=== PATIENT | male | born 1955 | race Caucasian/White ===

== ENCOUNTER → 2018-09-01 10:45 | Outpatient (CLI) | payer MEDICARE, OTHER, SELFPAY ==
[2018-09-01 12:25] LABS: INR 2.1 (0.9-1.3); Prothrombin Time 22.9 SECONDS (10.1-12.7)
[2018-09-01 13:13] LABS: Hemoglobin A1C% w Est Avg Glu 5.8 % (4.0-6.0)
[2018-09-01 14:00] LABS: Alanine Aminotransferase 40 IU/L (21-72); Albumin 4.6 g/dL (3.5-5.0); Albumin Globulin Ratio 1.7 (1.0-2.8); Alkaline Phosphatase 50 U/L (38-126); Aspartate Aminotransferase 32 IU/L (17-59); BUN Creatinine Ratio 22.2 (6-22); Bilirubin Total 1.8 mg/dL (0.2-1.3); Blood Urea Nitrogen 20 mg/dL (9-20); Calcium 9.7 mg/dL (8.4-10.2); Carbon Dioxide 32 mmol/L (22-32); Chloride 99 mmol/L (98-107); Cholesterol 126 mg/dL (140-199); Estimated Glomerular Filt Rate > 60.0 mL/min (>60); Globulin 2.7 g/dL (1.7-4.1); Glucose 108 mg/dL (80-110); HDL Cholesterol 42 mg/dL (40-60); HEMOLYSIS < 15 (0-50); LDL Cholesterol Calculated 58 mg/dL (<100); Potassium 3.5 mmol/L (3.4-5.1); Sodium 145 mmol/L (137-145); Total Protein 7.3 g/dL (6.3-8.2); Triglycerides 129 mg/dL (35-150)
[2018-09-01 15:34] LABS: Vitamin D 25 Hydroxy (D3) 33.1 ng/mL (30.0-100.0)
== END ==
PROVIDERS: PCP Student in an Organized Health Care Education/Training Program; Visit Provider Student in an Organized Health Care Education/Training Program
DX: R73.03 Prediabetes (principal); E78.2 Mixed hyperlipidemia; E55.9 Vitamin D deficiency, unspecified; Z79.01 Long term (current) use of anticoagulants; I10 Essential (primary) hypertension; Z79.899 Other long term (current) drug therapy
CPT/HCPCS: 36415; 80053; 80061; 82306; 83036; 85610

== ENCOUNTER → 2018-11-08 13:26 | Outpatient (CLI) | payer MEDICARE, OTHER, SELFPAY ==
[2018-11-08 13:35] LABS: Bacteria Urine None Seen; RBC Urine None Seen (0-5/HPF); WBC Urine None Seen (0-5/HPF)
[2018-11-08 14:07] LABS: INR 2.1 (0.9-1.3); Prothrombin Time 24.4 SECONDS (10.1-12.7)
[2018-11-08 14:20] LABS: Appearance Urine UA CLEAR; Bilirubin Urine UA NEGATIVE (NEGATIVE); Color Urine UA YELLOW; Glucose Urine UA NEGATIVE (Negative); Ketones Urine UA NEGATIVE (NEGATIVE); Leukocyte Esterase Urine UA NEGATIVE (NEGATIVE); Nitrite Urine UA NEGATIVE (Negative); Occult Blood Urine UA TRACE-LYSED (Negative); Protein Urine UA NEGATIVE (Negative); Specific Gravity Urine UA >=1.030 (1.000-1.035); Urobilinogen Urine UA 0.2 E.U./dL (0.2); pH Urine UA 5.5 (4.5-8.0)
[2018-11-08 14:36] LABS: Alanine Aminotransferase 47 IU/L (21-72); Albumin 4.6 g/dL (3.5-5.0); Albumin Globulin Ratio 1.6 (1.0-2.8); Alkaline Phosphatase 47 U/L (38-126); Aspartate Aminotransferase 33 IU/L (17-59); BUN Creatinine Ratio 21.1 (6-22); Bilirubin Direct 0.2 mg/dL (0.0-0.4); Bilirubin Total 2.5 mg/dL (0.2-1.3); Blood Urea Nitrogen 19 mg/dL (9-20); Calcium 9.9 mg/dL (8.4-10.2); Carbon Dioxide 31 mmol/L (22-32); Chloride 97 mmol/L (98-107); Estimated Glomerular Filt Rate > 60.0 mL/min (>60); Globulin 2.9 g/dL (1.7-4.1); Glucose 85 mg/dL (80-110); HEMOLYSIS < 15 (0-50); Potassium 3.5 mmol/L (3.4-5.1); Sodium 141 mmol/L (137-145); Total Protein 7.5 g/dL (6.3-8.2)
[2018-11-08 14:53] LABS: Amorphous Sediment Urine 2+; Hyaline Casts Urine 1-5/LPF
[2018-11-08 14:54] LABS: Culture Indicated Urine Cult Not Indicated
[2018-11-08 15:02] LABS: Add Manual Diff / Slide Review NO; Basophils Absolute Auto 0 /uL (0-100); Basophils Percent Auto 0.5 % (0-2); Eosinophils Absolute Auto 100 /uL (0-450); Eosinophils Percent Auto 1.1 % (2-4); Hematocrit 50.6 % (41-53); Hemoglobin 17.2 g/dL (13.5-17.5); Lymphocytes Absolute Auto 4300 /uL (1100-4500); Lymphocytes Percent Auto 46.5 % (25-40); Mean Corpuscular HGB Conc 33.9 % (30-36); Mean Corpuscular Volume 100.3 fL (80-100); Monocytes Absolute Auto 1200 /uL (0-900); Monocytes Percent Auto 12.9 % (3-14); Neutrophils Absolute Auto 3600 /uL (1500-7000); Platelet Count 196 X10^3/uL (150-400); Red Blood Cell Count 5.04 X10^6/uL (4.5-5.9); Red Cell Distribution Width 13.2 % (11.6-14.8); White Blood Cell Count 9.2 X10^3/uL (4.5-11.0)
[2018-11-09 06:27] LABS: Gamma Glutamyl Transpeptidase 25 U/L (15-73)
== END ==
PROVIDERS: PCP Student in an Organized Health Care Education/Training Program; Visit Provider Student in an Organized Health Care Education/Training Program
DX: Z01.810 Encounter for preprocedural cardiovascular examination (principal); E80.4 Gilbert syndrome; E80.6 Other disorders of bilirubin metabolism
CPT/HCPCS: 36415; 80053; 81001; 82248; 82977; 85025; 85610

== ENCOUNTER → 2018-12-10 13:53 | Outpatient (CLI) | payer MEDICARE, OTHER, SELFPAY ==
[2018-12-10 14:58] LABS: INR 2.5 (0.9-1.3); Prothrombin Time 28.7 SECONDS (10.1-12.7)
== END ==
PROVIDERS: PCP Student in an Organized Health Care Education/Training Program; Visit Provider Student in an Organized Health Care Education/Training Program
DX: Z79.01 Long term (current) use of anticoagulants (principal)
CPT/HCPCS: 36415; 85610

== ENCOUNTER 2019-01-06 06:12 | Inpatient (IN) | payer MEDICARE, OTHER, SELFPAY ==
[2018-12-23 08:49] VITALS: BMI 26.9
[2019-01-06] VITALS (15 sets, daily range): BP systolic 94–124; BP diastolic 52–79; PULSE 65–90; RESP 10–18; TEMP 36–36.8; O2SAT 94–100; BMI 26.7
--- NOTE | 2019-01-06 | DI.RAD.S_ITS ---
PROCEDURE: XR HIP W PEL IF DONE RT 2V INDICATIONS: post operative right hio TECHNIQUE: 2 view(s) of the hip acquired. COMPARISON: [facility], [place], XR HIP W PEL IF DONE RT 2V, 01/06/2019, 8:36. FINDINGS: Bones: Patient is status post right hip arthroplasty, with hardware components in expected positions. The hip joint appears congruent. The visualized bony structures appear intact. Moderate left hip degenerative change. Soft tissues: Overlying postoperative changes are noted. No suspicious soft tissue densities. IMPRESSION: Expected postoperative appearance of right hip arthroplasty. Dictated by: Mary Kate Keith M.D. on 01/06/2019 at 12:28 Approved by: Mary Kate Keith M.D. on 01/06/2019 at 12:30
--- NOTE | 2019-01-06 06:00 | DI.RAD.S_ITS ---
PROCEDURE: XR HIP W PEL IF DONE RT 2V INDICATIONS: intraoperative right total hip TECHNIQUE: AP pelvis with lateral view(s) of the right hip(s). COMPARISON: [facility], [place], XR PELVIS WITH LATERAL HIP RIGHT, 04/28/2018, 15:51. FINDINGS: Right hip arthroplasty with prosthesis in anatomic alignment. IMPRESSION: Right hip prosthesis in anatomic alignment. Dictated by: Mandi Barlow M.D. on 01/06/2019 at 15:42 Approved by: Mandi Barlow M.D. on 01/06/2019 at 15:43
[2019-01-06] MEDS: LACTATED RINGERS 1,000 ML 42 ML IV ×2 (07:00→11:21)
[2019-01-06] MEDS: VANCOMYCIN 1,000 MG/200 ML FROZ.PIGGY 200 MG IV (07:04)
[2019-01-06] MEDS: PREGABALIN 75 MG CAPSULE PO (07:05)
[2019-01-06] MEDS: ACETAMINOPHEN 325 MG TABLET 975 MG PO ×3 (07:05→20:22)
[2019-01-06] MEDS: CELECOXIB 200 MG CAPSULE PO (07:05)
--- NOTE | 2019-01-06 07:48 | SUR.PREOP ---
SPOKE WITH DR. ESQUEDA REGARDING ORDER FOR LAB TO BE DRAWN. PER DR. ESQUEDA, NO NEED TO DRAW NEW LABS TODAY. SPOKE WITH DR. JIN REGARDING PT ALLERGY TO AMOXICILLIN IN REGARDS TO CURRENT ANTIBIOTIC ORDER FOR ANCEF. PER DR. JIN OK TO CONTINUE WITH CURRENT PLAN FOR ANCEF. 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
--- NOTE | 2019-01-06 07:49 | PM.PREOP ---
Pre-operative Note Interval Note History & Physical reviewed/Exam performed by Physician: Yes Changes to H&P: No
[2019-01-06] MEDS: CEFAZOLIN 2 GM/100 ML FROZ.PIGGY IV ×3 (08:00→23:50)
[2019-01-06] MEDS: BUPIVACAINE LIPOSOME 266 MG/20 ML VIAL INJ (08:56)
[2019-01-06] MEDS: BUPIVACAINE 0.25% W/ EPI 50 ML VIAL INJ (08:58)
[2019-01-06] MEDS: POVIDONE-IODINE 15 ML, SODIUM CHLORIDE 0.9% 250 ML TOP (08:59)
--- NOTE | 2019-01-06 12:00 | SUR.PHASEI ---
REPORT CALLED TO REYMUNDO ULRICH ON ACUTE CARE FLOOR. PT IN STABLE CONDITION, VSS. IV SITE CLEAR AND INFUSING WITHOUT DIFFICULTLY. DRSG TO SURGICAL SITE OBSERVED TO BE C/D/I. DULL SENSTATION AND WEAK STRENGTH RELATED TO SPINAL. +PULSE, AND WARM TO TOUCH. PT DENIES ANY PAIN/DISCOMFORT OR NAUSEA. PT LAYING IN BED AND TALKING TO RN.
--- NOTE | 2019-01-06 12:08 | PC.NURSE ---
Day shift: Pty not on AC unit at this time. [id number]
--- NOTE | 2019-01-06 12:14 | PC.NURSE ---
Day shift: Arrived on unit at approx 1215. Aquacel Dressing is CDI. Oriented to call light and room. CAll light in reach. Agrees to not get OOB w/o help from staff. VS ok. RA 95%. Denies pain.
--- NOTE | 2019-01-06 12:20 | SUR.PHASEI ---
TRANSFERRED PT TO ACUTE CARE FLOOR. VSS. PT IN ROOM UPON ARRIVAL. BEDSIDE REPORT GIVEN TO REYMUNDO ULRICH UPON ARRIVAL. TRANSFERRED CARE OF PT TO REYMUNDO ULRICH AT THAT TIME.
[2019-01-06] MEDS: LACTATED RINGERS 1,000 ML 125 ML IV ×2 (12:55→20:27)
[2019-01-06] MEDS: WARFARIN 2.5 MG TABLET PO (16:44)
[2019-01-06] MEDS: ATENOLOL 50 MG TABLET 100 MG PO (16:45)
--- NOTE | 2019-01-06 17:55 | P.OP_ITS ---
Operative Date/Time/Diagnoses Date of procedure: 01/06/19 Time of procedure: 08:01 Pre-op diagnosis: Right hip osteoarthritis Post-op diagnosis: same Procedure & Clinicians Procedure: Right total hip arthroplasty Same procedure as scheduled: Yes Indications: The patient has had progressively worsening right hip pain with radiographic changes consistent with arthritis. Non-operative management has failed and the patient has requested total hip replacement. The risks, benefits and alternatives to surgery were discussed with the patient prior to proceeding. Risks discussed included, but were not limited to, failure to relieve pain, leg length discrepancy, dislocation, stiffness, infection, nerve damage, deep venous thrombosis, pulmonary embolism, stroke, coma, heart attack, permanent paralysis and , as well as the potential need for eventual revision of the prosthetic. Surgeon: Julieta Saunders Architecture Intern: Tho Akins Anesthesia Type: General and Spinal Operative Notes Findings: Severe right hip osteoarthritis, good stability Closure Type: primary Specimen(s): none sent Prosthetic devices, grafts, tissues, transplants, or devices: Saunders [employer]hew R3 54 cup, size 8 standard offset anthology, +0 head Oxinium Estimated Blood Loss (mL): 250 Blood products transfused: none Procedure in detail: The patient was brought to the operating room. Patient was carefully positioned in the supine position. Time-out was performed and antibiotics were given. Anesthesia was induced. he was positioned in the on the hana table in order to allow hyperextension of the hip. the right lower extremities were prepped and draped in a standard sterile fashion. An anterior right hip incision was made 1 fingerbreadth lateral to the anterior superior iliac spine and extended distally towards the greater trochanter. Dissection was carried out through skin and subcutaneous tissues. The skin and subcutaneous tissues were carefully injected with Lidocaine with epi. Superficial hemostasis was achieved. The fascia over the tensor fascia yury was defined and incised with a knife. Two Allis clamps were used to grasp the fascia. Tensor fascia yury was retracted laterally. A gelpi retractor was placed. Dissection was carried out down along the neck. The circumflex vessels were carefully identified and cauterized with the Aqua Mantis. There was good visualization of the femoral neck. A Cobra was placed superior to the neck and the gluteus fibers were carefully stripped from the superior aspect of the capsule. A 2nd retractor was placed along the inferior aspect of the neck. The rectus insertion along the capsule was partially released. A 3rd retractor that was then gently placed over the rim of the acetabulum under the rectus and the rectus was very gently retracted. Capsule was carefully incised and released from the intertrochanteric line circumferentially superior to the mid sagittal line and inferiorly to the mid sagittal line until the lesser trochanter was palpable. A tag stitch was placed both in the superior and inferior limb of the capsular insertion. Along the acetabulum capsule was also released up to the mid sagittal 12:00 position. A portion of the labrum was r esected. A saw was used to perform an osteotomy at the level of the intertrochanteric line and the junction of the superior femoral neck leaving approximately 1 finger breath of residual inferior neck above the lesser trochanter. A 2nd cut was made along the femoral neck at the base of the head and a napkin ring of neck was removed. Corkscrew was placed in the femoral head and the head was removed without difficulty. Retractors were then repositioned around the acetabulum. Residual labrum was resected and additional osteophytes were removed. A reamer that was 4 mm below the templated size was placed by hand in the acetabulum and it was reamed to centralize the acetabulum. It was then reamed up to 2 under the templated size and fluoroscopy was brought in to confirm the position of the reaming and depth of reaming. I reamed 1 under the anticipated size and touched the rim with line to line reaming. A trial cup was placed and noted that it was appropriately sized and fluoroscopy confirmed position and depth. The component was open and inserted without difficulty fluoroscopic imaging was used to confirm that the cup had been adequately seated and was well positioned. Neutral poly liner was placed. The cup was tested and noted to be stable. Attention was then directed to the femur. The femur was gently hyperextended additional capsular release was performed as needed in order to allow adequate visualization of the proximal femur with elevation of the femur. Patient was placed in a hyperextended slightly adducted position with maximum external rotation. a proximal femoral hook was passed posteriorly around the trochanter and very gently elevated. Box osteotome was used to check for any residual neck as well as sclerotic bone along the trochanter. Townsend pepper was placed in the femur. there was excellent visualization of the proximal femur. Additional broaching was performed. Canal finder was used to determine the alignment of the canal and position. Size 1 broach was placed. The canal was then appropriately broached up to the templated size as long as there was adequate stability of the broach and serial advancement of the broach without excessive impingement. Specific attention was directed at avoiding varus attempting to direct the distal aspect of the broach more anteriorly and avoiding excessive anteversion. Trial reduction showed acceptable range of motion, good stability, no posterior impingement, pentecostalism of leg length and appropriate lateral shuck. I also flexed the hip and checked that there was no impingement anteriorly and there was good stability with flexion, abduction and internal rotation. Marcaine and Exparel were injected. The stem was placed without difficulty. A brief Betadine soak was performed. Repeat trial reduction and x-ray showed acceptable overall position, length, and no evidence of the femoral fracture. Final head was placed. Wound was meticulously irrigated with normal saline. The hip was reduced and additional Exparel and Marcaine were injected. The capsule was closed with interrupted nonabsorbable sutures. The fascia of the tensor was closed with interrupted and running Vicryl. No drain was placed. Any tensor fascia yury muscle that appeared to be contused or injured which was a minimal amount was carefully resected. Capsule around the tensor was injected with Exparel and Marcaine. The skin was closed with barbed stitches for the subcutaneous tissue and skin. We also used surgical glue. The wound was dressed sterilely. Brief Betadine soak was also used and was meticulously irrigated wit h normal saline. Patient was transferred to recovery room in satisfactory condition. Complications: none Condition: stable Disposition: Acute Care Plan for aftercare: The patient will be maintained on a standard total hip replacement protocol with weight bearing as tolerated and anterior hip precautions. The patient will receive his preoperative Coumadin and sequential compression devices for DVT prophylaxis. The patient will be discharged home when safe for the home environment.
[2019-01-06] MEDS: DOCUSATE 100 MG CAPSULE PO (20:22)
[2019-01-06] MEDS: ASPIRIN EC 81 MG TABLET PO (20:22)
[2019-01-06] MEDS: SIMVASTATIN 20 MG TABLET PO (20:22)
[2019-01-06] MEDS: OXYCODONE IR 5 MG TABLET PO ×2 (20:23→23:50)
[2019-01-07 04:00] VITALS: BP 111/65; PULSE 82; RESP 18; TEMP 36.8; O2SAT 97
[2019-01-07] MEDS: OXYCODONE IR 5 MG TABLET PO ×4 (04:00→16:41)
[2019-01-07] MEDS: LACTATED RINGERS 1,000 ML 125 ML IV (05:29)
[2019-01-07 06:51] LABS: Hematocrit 39.5 % (41-53); Hemoglobin 13.6 g/dL (13.5-17.5)
[2019-01-07 07:40] VITALS: BP 138/60; PULSE 75; RESP 16; TEMP 37.1; O2SAT 97
[2019-01-07] MEDS: POLYETHYLENE GLYCOL 3350 17 GM POWD.PACK PO (08:27)
[2019-01-07] MEDS: ACETAMINOPHEN 325 MG TABLET 975 MG PO ×3 (08:28→21:42)
[2019-01-07] MEDS: DOCUSATE 100 MG CAPSULE PO ×2 (08:29→19:57)
[2019-01-07] MEDS: MULTIVITAMIN 1 TABLET 1 TAB PO (08:29)
[2019-01-07] MEDS: hydroCHLOROthiazide 25 MG TABLET 50 MG PO (08:29)
[2019-01-07] MEDS: ASPIRIN EC 81 MG TABLET PO ×2 (08:29→19:57)
[2019-01-07] MEDS: FISH OIL 1,000 MG CAPSULE 1000 MG PO (08:29)
--- NOTE | 2019-01-07 09:05 | PM.DS.1 ---
History of Present Illness Chief complaint: Right Total Hip Arthroplasty/Anterior Approach Discharge Providers Date of admission: 01/06/19 06:12 Primary care physician: Chandra Schilling MD Consults: 01/06/19 06:00 Consult to Anesthesiology Routine Comment: Consulting Provider: Anesthesiologist Reason for consultation: Regional block for post operative pain control 01/06/19 12:30 Consult to Discharge Planning Routine Comment: Consult to Physical Therapy Evaluate & Treat Comment: Physician Instructions: post op ZEINA protocol Consult to Respiratory Therapy Evaluate & Treat Comment: Physician Instructions: Evaluate and treat Discharge provider: Carri Hu PA-C Exam Vital Signs (past 8 hours): - 01/07/19 04:00 01/07/19 07:40 Temperature 98.2 F 98.7 F Pulse Rate 82 75 Respiratory Rate 18 16 Blood Pressure 111/65 138/60 Pulse Oximetry 97 97 Oxygen Delivery Method Room Air Oxygen Flow Rate 0 Objective Labs Result Diagrams: 01/07/19 06:29 Labs: Laboratory Results - last 24 hr 01/07/19 06:29 Hgb 13.6 Hct 39.5 L Discharge Plan Discharge Plan Patient Disposition: Home Discharge Med Rec/Prescriptions Prescriptions: New oxycodone 5 mg Tablet 5 mg PO Q4-6H PRN (Reason: pain) Qty: 40 RF: 0 hydroxyzine HCl 25 mg tablet 25 mg PO QID PRN (Reason: muscle spasm) Qty: 60 RF: 0 Continued multivitamin Capsule 1 cap PO DAILY Qty: 0 RF: 0 simvastatin 20 MG tablet 20 mg PO HS Qty: 0 RF: 0 hydrochlorothiazide 25 MG tablet 50 mg PO QDAY Qty: 0 RF: 0 omega 9-jrf-wdz-fish oil [Fish Oil] 1,000 mg (120 mg-180 mg) Capsule 1 cap PO DAILY Qty: 0 RF: 0 warfarin [Coumadin] 5 mg tablet 5 mg PO QMWF RF: 0 atenolol 100 mg Tablet 100 mg PO QPM RF: 0 warfarin 2.5 mg PO [id number] RF: 0 Follow up/Referrals: Julieta Saunders MD [Physician] - (Follow up in the office at the appointments listed in your [facility] book.) Provider Discharge Instructions Diet: Diet as Tolerated Activity: Weight bearing as tolerated, use walker until steady on feet. Cold/Heat Therapy: Apply ice to affected area for 20 minutes at a time at least hourly while awake. Other treatments: Refer to [facility] book for further questions and instructions Skin/Wound/Dressing Care Report to your healthcare provider any signs of infection, such as:: chills, fever, night sweats, increased pain, unusual drainage and unusual redness Dressing: Keep dressing clean, dry, and intact. May shower with it in place but no soaking. Visit Report/Discharge Packet Instructions: DI for Hip Replacement Stand Alone Forms: Surgery Discharge Discharge Data Primary Care Provider: Chandra Schilling Attending Provider: Julieta Saunders Admit Date/Time: 01/06/19 06:12
[2019-01-07] MEDS: KETOROLAC 15 MG/ML VIAL IV (09:33)
--- NOTE | 2019-01-07 11:30 | PM.PNPO.1 ---
Subjective Date Patient Seen: 01/07/19 Interval history: Patient is seen bedside status post right anterior hip arthroplasty postop day 1. His spinal has worn off and is having some pain in his thigh. He has not been up with therapy. Exam Vital Signs (past 8 hours): - 01/07/19 04:00 01/07/19 07:40 Temperature 98.2 F 98.7 F Pulse Rate 82 75 Respiratory Rate 18 16 Blood Pressure 111/65 138/60 Pulse Oximetry 97 97 Oxygen Delivery Method Room Air Oxygen Flow Rate 0 Narrative Exam Narrative: Well-developed well-nourished no acute distress. Alert and oriented x3. Dressing on anterior hip is clean dry and intact no signs of drainage. He is neurovascularly intact in the operative extremity with a soft compressible calf and 2+ pulses. Objective Labs Result Diagrams: 01/07/19 06:29 Labs: Laboratory Results - last 24 hr 01/07/19 06:29 Hgb 13.6 Hct 39.5 L Assessment & Plan Post-op Postoperative Procedures Operation Date: 01/06/19 07:45 Actual Procedures Side Surgeon p Total Hip Arthroplasty/Anterior Approach Right Julieta Saunders MD 1. Postop day 1. Status post above procedure- give patient 1 time dose of Toradol to help with inflammation. Work with PT. If cleared, may be discharged later today. Follow up in office according to his schedule in his [facility] guide. Quality VTE Deep Vein Thrombosis/Pulmonary Embolism Present on Admission: No
--- NOTE | 2019-01-07 11:30 | PT.IIE ---
Current Diagnoses Unilateral primary osteoarthritis, right hip (01/06/19) Surgery Performed Operation Date: 01/06/19 07:45 Actual Procedures p Total Hip Arthroplasty/Anterior Approach(Right) - Julieta Saunders MD Surgical History (This Medical Record has been edited. Action required.) Anesthesia (Resolved) History of hernia surgery (Resolved) History of knee surgery (Resolved) History of laparoscopy (Resolved) History of neck surgery (Resolved) History of sigmoidoscopy (Resolved) Shoulder pain, left (Resolved) Medical History (This Medical Record has been edited. Action required.) GERD (gastroesophageal reflux disease) (Acute) Mitral valve regurgitation (Acute) Functional mitral regurgitation (Acute) KADE (obstructive sleep apnea) (Acute) Atrial fibrillation (Chronic) Diverticular disease (Chronic) Hypertension (Chronic) Knee pain (Chronic) Shoulder pain (Chronic) Vertigo (Chronic ~1989) Physical Therapy Inpatient Evaluation/Re-Eval M1 PT/OT-IP Prior Functional Status Start: 01/06/19 16:05 Freq: NEEDED Status: Active Protocol: Document 01/07/19 09:30 (Rec: 01/07/19 11:30 [email or web address]) Medical Review Prior Functional Status Medical History Reviewed Yes Communication No deficits noted. Able to make needs known Mobility and Gait Pt was independent ambulator at home and community. Pt used his crutches/ FWW ocassionally when his R hip pain got very irritated. Pt was able to drive as well. Activities of Daily Living and IADL's Pt was independent with his ADLs and IADLs without AD. Social History Household Members spouse Living Arrangements House Number of Floors (Floors) Two Floors Number of Stairs To Enter/Railing? No JUAN, with ramp Home Environment Standard Height Toilet Tub/Shower Ramp Home Equipment Front Wheel Walker Four Wheel Walker Straight Cane Crutches Raised Toilet Seat w/Armrests Tub Transfer Bench Grab Bars Near Toilet Grab Bars In Shower Employment Status Unknown Additional Social History Comment Pt lives with his in a 2 level home without JUAN. They primarily stay on main floor. Pt had L menisectomy and palma cyst who stated he still has pain recently. Pt used crutches or FWW occasionally if his R hip pain got irritated. Pt scheduled outpatient PT at [facility] in [facility] starting from next thursday. M2 PT-IP Current Condition Start: 01/06/19 16:05 Freq: NEEDED Status: Active Protocol: Document 01/07/19 09:30 (Rec: 01/07/19 11:30 [email or web address]) Physical Therapy Current Condition Current Condition Evaluation Date 01/07/19 Treatment Diagnosis R ZEINA ant precautions, impaired gait, balance and activity tolerance. Onset Date 01/06/19 Precautions Anterior Hip Precautions No Hip Extension No Hip External Rotation Weight Bearing Status Weight Bearing Status Weight Bear as Tolerated M3 PT-IP Subjective Start: 01/06/19 16:05 Freq: NEEDED Status: Active Protocol: Document 01/07/19 09:30 (Rec: 01/07/19 11:30 [email or web address]) Subjective Physical Therapy Visit Type Type Initial Evaluation Visit Start Time 09:30 Visit Stop Time 10:20 Total Visit Minutes 50 Notes Per RN, pt c/o severe pain since last nigth 6-8 at all times. Pt used BSC last night and almost fell while transfer due to hip pain and weakness. Number of PROPERTY CONTROLLER Visits 0 Physical Therapy Visit Comments Patient Comments My pain is in -8 at this point and it is very hard to lift my leg up. Patient Goals To return home with his Therapy Pain Assessment Pain When Pain Assessed During Mobility Pain Present Pain Present Pain Reported Location Right Hip Intensity 7 Scale Used Numeric (1 - 10) Description Acute Pain Behaviors Calling Out Facial Grimacing Guarding Pain Management Techniques Modification of Treatment Re-positioning Timing of Activity with Medications M4 PT-IP Mobility and Gait Start: 01/06/19 16:05 Freq: NEEDED Status: Active Protocol: Document 01/07/19 09:30 (Rec: 01/07/19 11:30 [email or web address]) PT-Bed Mobility Assessment Rolling Type of Rolling Roll to Right Level of Assist Minimal Assistance 1 Person Assistance Supine to Sit Supine to Sit Minimal Assistance 1 Person Assistance Head of Bed Elevated Bedrails Scooting Scooting to Edge of Bed Minimal Assistance Scooting Up and Down in Bed Minimal Assistance PT-Transfer Assessment Sit to and From Stand Sit to and from Stand Minimal Assistance Use of Upper Extremities Equipment Transfer Assistive Device Gait Belt Front Wheeled Walker Orthotic/Prosthetic Devices or Brace: No Transfers Transfer Destination Bed Chair Toilet Transfer Technique Stand Step Pivot Transfer Ability Level of Assist Minimal Assistance Use of Upper Extremities Comments Mobility Comments Pt c/o severe R hip pain with facial grimacing during mobility. Pt required min A and belt to lift his R leg to pivot EOB from supine. Min A for STS and overall transfer activities. Pt used commode platform for toileting but he did need min A from getting up from it as well. Gait Assessment Gait Gait Assistance Required: Contact Guard Assist Distance (Feet) 10 Able to Maintain Weight Bearing Status Yes During Gait Assistive Devices Assistive Device Gait Belt Front Wheeled Walker Orthotic/Prosthetic Devices or Brace: No Gait Deviations General Gait Pattern Decreased Stride Length Decreased Feet Clearance Step-to Gait Factors Limiting Gait Function Factors Limiting Gait Function Decreased Activity Tolerance Decreased Sensation Decreased Strength Limited Range of Motion Pain Poor Balance Comments Gait Comments Pt amb from EOB to bathroom for toileting then returned back to chair with FWW CGA. Pt used step to pattern and presented decreased R foot clearance and hip flexion during swing phase due to sever pain and weakness. Pt c/ o increased L posterior knee pain during amb due to increased WB on L side. Stair Climbing Assessment Comments Stair Climbing Comments did not attempt PT-Balance Assessment Sitting Balance and Reactions Static Sitting Balance Ability Normal Dynamic Sitting Balance Ability Normal Standing Balance and Reactions Static Standing Balance Ability Good Dynamic Standing Balance Ability Fair Device Used FWW M5 PT-IP Objective Assessments Start: 01/06/19 16:05 Freq: NEEDED Status: Active Protocol: Document 01/07/19 09:30 (Rec: 01/07/19 11:30 [email or web address]) Orientation Orientation/Cognition Level of Alertness Alert Orientation Name Age Birthday Month Date Year Day of Week Place Situation Language Function Ability No Deficits Noted Safety Awareness Understands Safety Issues Memory Description No Deficits Noted Gross Range of Motion Upper Extremity ROM Assessment Within Functional Limits Lower Extremity ROM Assessment Right Impaired Strength Upper Extremity Strength Assessment Within Functional Limits Lower Extremity Strength Assessment Right Impaired Hip 3-/5 Knee 3+/5 Ankle 4+/5 Comments Strength Comments rsignificant weakness on R hip (flexion> abd > extension) Coordination Assessment Gross Coordination Gross Coordination WNL Sensation Assessment Sensation Gross Sensation Right LE Impaired Light Touch Impaired Proprioception (Position) Impaired Sensation Description Numbness Muscle Tone Muscle Tone WNL Yes M6 PT-IP Treatment Start: 01/06/19 16:05 Freq: NEEDED Status: Active Protocol: Document 01/07/19 09:30 (Rec: 01/07/19 11:30 [email or web address]) Physical Therapy Treatment Exercises Exercises Ankle Pumps Gluteal Sets Quad Sets Heel Slides Straight Leg Raises Education Education Provided Precautions Weight Bearing Status Post-Op Packet Safety M7 PT-IP Assessment and Plan Start: 01/06/19 16:05 Freq: NEEDED Status: Active Protocol: Document 01/07/19 09:30 (Rec: 01/07/19 11:30 [email or web address]) PT Summary Assessment and Plan Potential Rehabilitation Potential Good Status of Condition at Evaluation Evolving Summary Impairments Pain ROM Strength Balance Sensation Bed Mobility Transfers Gait Activity Tolerance Assessment Summary Pt is a very pleasant 63 yo male POD# R ZEINA anterior approach. Pt's at bedside today. He c/o severe R hip pain 6-8/10 during session with facial grimacing. Pt experienced difficulty lifting his R leg during bed mobility . He required overall min A for bed mobility and transfer , and CGA for gait training. Pt did not amb far due to increase L knee and R hip pain . Requested to rest in chair after toileting. Pt currently is far from baseline and not safe to d/c home yet. Pt's primarily limitation at this point is pain and expected to return close to baseline once his pain is addressed. Pt is expected to be d/c home once he is medically stable and reach rehab goals. If patient is unable to reach his goals, short term SNF will be an options to improve his mobility. Goals Bed Mobility Goal Independent Transfer Goal Independent Front Wheeled Walker Gait Goal Independent Front Wheel Walker Gait Distance 150 Days to Meet Goals 3 Frequency of Treatment Frequency Of Treatment Twice a Day Treatment Plan Physical Therapy Treatment Plan Bed Mobility Training Transfer Training Gait Training Therapeutic Exercise Balance Retraining Post Op Education Discharge Planning Hot or Cold Pack Other Recommendations and Next Treatment review precautions Focus bed mob, transfer and gait training as bree pt's will bring personal FWW for adjustment. Recommendations To Nursing Amount of Assist Needed 1 Person Assist Discharge Recommendations PT Discharge Recommendations Home with Assistance Outpatient PT Other Discharge Recommendations Pt is expected to be d/c home once he is medically stable and reach rehab goals. If patient is unable to reach his goals, short term SNF will be an options to improve his mobility.
--- NOTE | 2019-01-07 11:33 | P.PN_ITS ---
Subjective Date Patient Seen: 01/07/19 Interval history: Patient is seen bedside status post right anterior hip art hroplasty postop day 1. His spinal has worn off and is having some pain in his thigh. He has not been up with therapy. Exam Vital Signs (past 8 hours): - 01/07/19 04:00 01/07/19 07:40 Temperature 98.2 F 98.7 F Pulse Rate 82 75 Respiratory Rate 18 16 Blood Pressure 111/65 138/60 Pulse Oximetry 97 97 Oxygen Delivery Method Room Air Oxygen Flow Rate 0 Narrative Exam Narrative: Well-developed well-nourished no acute distress. Alert and oriented x3. Dressing on anterior hip is clean dry and intact no signs of drainage. He is neurovascularly intact in the operative extremity with a soft compressible calf and 2+ pulses. Objective Labs Result Diagrams: 01/07/19 06:29 Labs: Laboratory Results - last 24 hr 01/07/19 06:29 Hgb 13.6 Hct 39.5 L Assessment & Plan Post-op Postoperative Procedures Operation Date: 01/06/19 07:45 Actual Procedures Side Surgeon p Total Hip Arthroplasty/Anterior Approach Right Julieta Saunders MD 1. Postop day 1. Status post above procedure- give patient 1 time dose of Torad ol to help with inflammation. Work with PT. If cleared, may be discharged later today. Follow up in office according to his schedule in his [facility] guide. Quality VTE Deep Vein Thrombosis/Pulmonary Embolism Present on Admission: No
[2019-01-07 12:00] VITALS: BP 97/58; PULSE 62; RESP 16; TEMP 36.2; O2SAT 96
[2019-01-07] MEDS: OXYCODONE IR 10 MG TABLET PO ×3 (13:13→23:09)
[2019-01-07 16:00] VITALS: BP 109/89; PULSE 65; RESP 16; TEMP 36.5; O2SAT 98
--- NOTE | 2019-01-07 16:01 | PT.IPTN ---
Current Diagnoses Unilateral primary osteoarthritis, right hip (01/06/19) Surgery Performed Operation Date: 01/06/19 07:45 Actual Procedures p Total Hip Arthroplasty/Anterior Approach(Right) - Julieta Saunders MD Physical Therapy Treatment Note M2 PT-IP Current Condition Start: 01/06/19 16:05 Freq: NEEDED Status: Active Protocol: Document 01/07/19 09:30 HH (Rec: 01/07/19 11:30 HH [email or web address]) Physical Therapy Current Condition Current Condition Evaluation Date 01/07/19 Treatment Diagnosis R ZEINA ant precautions, impaired gait, balance and activity tolerance. 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 Therapy Pain Assessment Pain When Pain Assessed During Mobility Pain Present Pain Present Pain Reported Location Right Hip Intensity 5 Scale Used Numeric (1 - 10) Description Acute Pain Behaviors Facial Grimacing Pain Management Techniques Modification of Treatment Re-positioning Timing of Activity with Medications M4 PT-IP Mobility and Gait Start: 01/06/19 16:05 Freq: NEEDED Status: Active Protocol: Document 01/07/19 14:25 HH (Rec: 01/07/19 16:00 [email or web address]) PT-Bed Mobility Assessment Sit to Supine Sit to Supine Minimal Assistance Head of Bed Elevated Bedrails Scooting Scooting Up and Down in Bed Contact Guard Assistance PT-Transfer Assessment Sit to and From Stand Sit to and from Stand Contact Guard Assistance Use of Upper Extremities Equipment Transfer Assistive Device Gait Belt Front Wheeled Walker Orthotic/Prosthetic Devices or Brace: No Transfers Transfer Destination Bed Chair Toilet Transfer Technique Stand Step Pivot Transfer Ability Level of Assist Contact Guard Assistance Use of Upper Extremities Comments Mobility Comments 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 He then got back to bed with min A on RLE to elevate. Gait Assessment Gait Gait Assistance Required: Contact Guard Assist Distance (Feet) 70 Able to Maintain Weight Bearing Status Yes During Gait Assistive Devices Assistive Device Gait Belt Front Wheeled Walker Orthotic/Prosthetic Devices or Brace: No Gait Deviations General Gait Pattern Decreased Stride Length Decreased Feet Clearance Step-to Gait Factors Limiting Gait Function Factors Limiting Gait Function Decreased Activity Tolerance Decreased Sensation Decreased Strength Limited Range of Motion Pain Poor Balance Comments Gait Comments amb from chair to bathroom and to hallway for a total of 70 feet with CGA FWW, followed by w/c. Pt c/o increased R hip pain and weakness who requested to sit after 70 feet . Stair Climbing Assessment Comments Stair Climbing Comments did not attempt PT-Balance Assessment Sitting Balance and Reactions Static Sitting Balance Ability Normal Dynamic Sitting Balance Ability Normal Standing Balance and Reactions Static Standing Balance Ability Good Dynamic Standing Balance Ability Fair Device Used FWW M5 PT-IP Objective Assessments Start: 01/06/19 16:05 Freq: NEEDED Status: Active Protocol: Document 01/07/19 09:30 (Rec: 01/07/19 11:30 [email or web address]) Orientation Orientation/Cognition Level of Alertness Alert Orientation Name Age Birthday Month Date Year Day of Week Place Situation Language Function Ability No Deficits Noted Safety Awareness Understands Safety Issues Memory Description No Deficits Noted Gross Range of Motion Upper Extremity ROM Assessment Within Functional Limits Lower Extremity ROM Assessment Right Impaired Strength Upper Extremity Strength Assessment Within Functional Limits Lower Extremity Strength Assessment Right Impaired Hip 3-/5 Knee 3+/5 Ankle 4+/5 Comments Strength Comments rsignificant weakness on R hip (flexion> abd > extension) Coordination Assessment Gross Coordination Gross Coordination WNL Sensation Assessment Sensation Gross Sensation Right LE Impaired Light Touch Impaired Proprioception (Position) Impaired Sensation Description Numbness Muscle Tone Muscle Tone WNL Yes M6 PT-IP Treatment Start: 01/06/19 16:05 Freq: NEEDED Status: Active Protocol: Document 01/07/19 09:30 (Rec: 01/07/19 11:30 [email or web address]) Physical Therapy Treatment Exercises Exercises Ankle Pumps Gluteal Sets Quad Sets Heel Slides Straight Leg Raises Education Education Provided Precautions Weight Bearing Status Post-Op Packet Safety M7 PT-IP Assessment and Plan Start: 01/06/19 16:05 Freq: NEEDED Status: Active Protocol: Document 01/07/19 14:25 (Rec: 01/07/19 16:00 [email or web address]) PT Summary Assessment and Plan Potential Rehabilitation Potential Good Status of Condition at Evaluation Evolving Summary Impairments Pain ROM Strength Balance Sensation Bed Mobility Transfers Gait Activity Tolerance Assessment Summary Pt showed improved amb distance and decreased assistance needed for transfer . But he still c/o R hip pain and weakness towards end of session and requested transferred back to bed with w /c. Goals Bed Mobility Goal Independent Transfer Goal Independent Front Wheeled Walker Gait Goal Independent Front Wheel Walker Gait Distance 150 Days to Meet Goals 3 Frequency of Treatment Frequency Of Treatment Twice a Day Treatment Plan Physical Therapy Treatment Plan Bed Mobility Training Transfer Training Gait Training Therapeutic Exercise Balance Retraining Post Op Education Discharge Planning Hot or Cold Pack Other Recommendations and Next Treatment review precautions Focus bed mob, transfer and gait training as bree pt's will bring personal FWW for adjustment. W/C follow Recommendations To Nursing Amount of Assist Needed 1 Person Assist Discharge Recommendations PT Discharge Recommendations Home with Assistance SNF Rehab Outpatient PT
[2019-01-07] MEDS: WARFARIN 5 MG TABLET PO (18:34)
[2019-01-07] MEDS: ATENOLOL 50 MG TABLET 100 MG PO (18:34)
[2019-01-07] MEDS: SIMVASTATIN 20 MG TABLET PO (19:57)
[2019-01-07 20:00] VITALS: BP 104/53; PULSE 80; RESP 18; TEMP 36.3; O2SAT 96
--- NOTE | 2019-01-07 23:25 | PC.NURSE ---
Pt tolerating diet and PO pain medications with mild to moderate pain to right hip; pt showered this afternoon; manish camarena c/d/i; pt using IS and O2 RA=99%; c/m/s to trae positive; scds active; ice water at bedside; call light within reach
[2019-01-07 23:56] VITALS: BP 118/64; PULSE 69; RESP 15; TEMP 36.3; O2SAT 97
[2019-01-08 04:46] VITALS: BP 122/68; PULSE 58; RESP 15; TEMP 36.4; O2SAT 96
[2019-01-08] MEDS: OXYCODONE IR 10 MG TABLET PO ×3 (05:11→11:48)
[2019-01-08 08:05] VITALS: BP 103/64; PULSE 62; RESP 20; TEMP 36.1; O2SAT 98
[2019-01-08] MEDS: MULTIVITAMIN 1 TABLET 1 TAB PO (08:46)
[2019-01-08] MEDS: ASPIRIN EC 81 MG TABLET PO (08:46)
[2019-01-08] MEDS: ACETAMINOPHEN 325 MG TABLET 975 MG PO (08:46)
[2019-01-08] MEDS: DOCUSATE 100 MG CAPSULE PO (08:46)
[2019-01-08] MEDS: FISH OIL 1,000 MG CAPSULE 1000 MG PO (08:46)
[2019-01-08] MEDS: hydroCHLOROthiazide 25 MG TABLET 50 MG PO (08:46)
--- NOTE | 2019-01-08 09:50 | P.DS_ITS ---
History of Present Illness Date Patient Seen: 01/08/19 Time Patient Seen: 09:47 Chief complaint: Right Total Hip Arthroplasty/Anterior Approach Narrative: Patient is finishing with physical therapy. Patient weight-bearing using walker. Pain moderate to severe. Denies fever chills. No nausea vomiting. Patient's is home to assist him. Discharge Providers Date of admission: 01/06/19 06:12 Discharge Date: 01/08/19 Primary care physician: Chandra Schilling MD Consults: 01/06/19 06:00 Consult to Anesthesiology Routine Comment: Consulting Provider: Anesthesiologist Reason for consultation: Regional block for post operative pain control 01/06/19 12:30 Consult to Discharge Planning Routine Comment: Consult to Physical Therapy Evaluate & Treat Comment: Physician Instructions: post op ZEINA protocol Consult to Respiratory Therapy Evaluate & Treat Comment: Physician Instructions: Evaluate and treat Discharge provider: Tho Akins PA-C Summary Discharge Diagnosis: Status post right total hip arthroplasty, direct anterior Hospital Course: The patient has had progressively worsening right hip pain with radiographic changes consistent with arthritis. Non-operative management has f thee and the patient has requested total hip replacement. The risks, benefits and alternatives to surgery were discussed with the patient prior to proceeding. Risks discussed included, but were not limited to, failure to relieve pain, leg length discrepancy, dislocation, stiffness, infection, nerve damage, deep venous thrombosis, pulmonary embolism, stroke, coma, heart attack, permanent paralysis and , as well as the potential need for eventual revision of the prosthetic. Surgeon: Julieta Saunders Federal Mediation Commissioner: Tho Akins Anesthesia Type: General and Spinal Operative Notes Findings: Severe right hip osteoarthritis, good stability Closure Type: primary Specimen(s): none sent Prosthetic devices, grafts, tissues, transplants, or devices: [employer] R3 54 cup, size 8 standard offset anthology, +0 head Oxinium Estimated Blood Loss (mL): 250 Blood products transfused: none Patient consented to the above-mentioned procedure. patient taken to the operating room underwent right total hip arthroplasty. patient back in his room recovering well and is in stable condition. patient will be discharged home in stable condition. Status at Discharge Cognitive/behavioral status at discharge: at baseline, oriented Functional status at discharge: uses cane/walker Overall status at discharge: patient is progressing back to baseline Time Spent with Patient Less than 30 minutes Exam Vital Signs (past 8 hours): - 01/08/19 04:46 01/08/19 08:05 Temperature 97.6 F 97.0 F L Pulse Rate 58 L 62 Respiratory Rate 15 20 Blood Pressure 122/68 103/64 Pulse Oximetry 96 98 Oxygen Delivery Method Room Air Oxygen Flow Rate 0 Narrative Exam Narrative: Pleasant 63-year-old male sitting in bedside chair in no apparent distress. dressing is clean, dry and intact. Sensation grossly intact to light touch bilateral lower extremities. Motor functions intact bilateral lower extremities. Right leg is warm and dry. Objective Labs Result Diagrams: 01/07/19 06:29 Discharge Plan Discharge Plan Patient Disposition: Home Discharge Med Rec/Prescriptions Prescriptions: New oxycodone 5 mg Tablet 5 mg PO Q4-6H PRN (Reason: pain) Qty: 40 RF: 0 hydroxyzine HCl 25 mg tablet 25 mg PO QID PRN (Reason: muscle spasm) Qty: 60 RF: 0 acetaminophen 325 mg Tablet 975 mg PO TID Qty: 60 RF: 1 oxycodone 10 mg Tablet 10 mg PO Q3HR PRN (Reason: Pain, Severe (7-10)) Qty: 30 RF: 0 Continued multivitamin Capsule 1 cap PO DAILY Qty: 0 RF: 0 simvastatin 20 MG tablet 20 mg PO HS Qty: 0 RF: 0 hydrochlorothiazide 25 MG tablet 50 mg PO QDAY Qty: 0 RF: 0 omega 2-rmo-dbh-fish oil [Fish Oil] 1,000 mg (120 mg-180 mg) Capsule 1 cap PO DAILY Qty: 0 RF: 0 warfarin [Coumadin] 5 mg tablet 5 mg PO QMWF RF: 0 atenolol 100 mg Tablet 100 mg PO QPM RF: 0 warfarin 2.5 mg PO [id number] RF: 0 Follow up/Referrals: Julieta Saunders MD [Physician] - (Follow up in the office at the appointments listed in your [facility] book.) Provider Discharge Instructions Diet: Diet as Tolerated Activity: Weight bearing as tolerated, use walker until steady on feet. Cold/Heat Therapy: Refer to [facility] book Other treatments: Take oxycodone 10 mg q.3 hours for severe pain, oxycodone 5 mg q.3 hours for [id number] pain. Refer to [facility] book for further questions and instructions Skin/Wound/Dressing Care Report to your healthcare provider any signs of infection, such as:: chills, fever, night sweats, increased pain, unusual drainage and unusual redness Dressing: Keep clean and dry Visit Report/Discharge Packet Instructions: DI for Hip Replacement Stand Alone Forms: Surgery Discharge Discharge Data Primary Care Provider: Chandra Schilling Attending Provider: Julieta Saunders Admit Date/Time: 01/06/19 06:12 Quality VTE Deep Vein Thrombosis/Pulmonary Embolism Present on Admission: No
--- NOTE | 2019-01-08 11:01 | PT.IPTN ---
Current Diagnoses Unilateral primary osteoarthritis, right hip (01/06/19) Surgery Performed Operation Date: 01/06/19 07:45 Actual Procedures p Total Hip Arthroplasty/Anterior Approach(Right) - Julieta Saunders MD Physical Therapy Treatment Note M2 PT-IP Current Condition Start: 01/06/19 16:05 Freq: NEEDED Status: Active Protocol: Document 01/07/19 09:30 HH (Rec: 01/07/19 11:30 [email or web address]) Physical Therapy Current Condition Current Condition Evaluation Date 01/07/19 Treatment Diagnosis R ZEINA ant precautions, impaired gait, balance and activity tolerance. 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 Patient Goals To return home with his Therapy Pain Assessment Pain When Pain Assessed During Mobility Pain Present Pain Present Pain Reported Location Right Hip Intensity 3 Scale Used Numeric (1 - 10) Description Acute Pain Management Techniques Modification of Treatment Re-positioning Timing of Activity with Medications M4 PT-IP Mobility and Gait Start: 01/06/19 16:05 Freq: NEEDED Status: Active Protocol: Document 01/08/19 10:51 SA (Rec: 01/08/19 11:01 SA [id number]) PT-Bed Mobility Assessment Rolling Type of Rolling Roll to Right Level of Assist Contact Guard Assistance 1 Person Assistance Supine to Sit Supine to Sit Contact Guard Assistance 1 Person Assistance Sit to Supine Sit to Supine Contact Guard Assistance 1 Person Assistance Bedrails Scooting Scooting to Edge of Bed Standby Assistance Scooting Up and Down in Bed Standby Assistance PT-Transfer Assessment Sit to and From Stand Sit to and from Stand Standby Assistance Equipment Transfer Assistive Device Gait Belt Front Wheeled Walker Orthotic/Prosthetic Devices or Brace: No Transfers Transfer Destination Bed Chair Transfer Technique Stand Step Pivot Transfer Ability Level of Assist Contact Guard Assistance Use of Upper Extremities Comments Mobility Comments Review/clarification of 2 hip precautions. Pt understands and able to maintain during mobility tasks. SBA-CGA for txs and bed mobility. Gait Assessment Gait Gait Assistance Required: Contact Guard Assist Distance (Feet) 95 Able to Maintain Weight Bearing Status Yes During Gait Assistive Devices Assistive Device Gait Belt Front Wheeled Walker Orthotic/Prosthetic Devices or Brace: No Gait Deviations General Gait Pattern Decreased Stride Length Decreased Feet Clearance Step-to Gait Factors Limiting Gait Function Factors Limiting Gait Function Decreased Activity Tolerance Decreased Sensation Decreased Strength Limited Range of Motion Pain Poor Balance Comments Gait Comments GAit training in roon/ramos with FWW and CGA. Pt WBinig well through RLE with improving step length, Uses FWW safely and demonstrates good safety awareness. Stair Climbing Assessment Comments Stair Climbing Comments Pt has one entrance into home with no steps and front entrance has one step to enter . PT-Balance Assessment Sitting Balance and Reactions Static Sitting Balance Ability Normal Dynamic Sitting Balance Ability Normal Standing Balance and Reactions Static Standing Balance Ability Good Dynamic Standing Balance Ability Fair Device Used FWW M5 PT-IP Objective Assessments Start: 01/06/19 16:05 Freq: NEEDED Status: Active Protocol: Document 01/07/19 09:30 (Rec: 01/07/19 11:30 [email or web address]) Orientation Orientation/Cognition Level of Alertness Alert Orientation Name Age Birthday Month Date Year Day of Week Place Situation Language Function Ability No Deficits Noted Safety Awareness Understands Safety Issues Memory Description No Deficits Noted Gross Range of Motion Upper Extremity ROM Assessment Within Functional Limits Lower Extremity ROM Assessment Right Impaired Strength Upper Extremity Strength Assessment Within Functional Limits Lower Extremity Strength Assessment Right Impaired Hip 3-/5 Knee 3+/5 Ankle 4+/5 Comments Strength Comments rsignificant weakness on R hip (flexion> abd > extension) Coordination Assessment Gross Coordination Gross Coordination WNL Sensation Assessment Sensation Gross Sensation Right LE Impaired Light Touch Impaired Proprioception (Position) Impaired Sensation Description Numbness Muscle Tone Muscle Tone WNL Yes M6 PT-IP Treatment Start: 01/06/19 16:05 Freq: NEEDED Status: Active Protocol: Document 01/08/19 10:51 SA (Rec: 01/08/19 11:01 SA [id number]) Physical Therapy Treatment Exercises Exercises Ankle Pumps Gluteal Sets Quad Sets Heel Slides Straight Leg Raises Education Education Provided Precautions Weight Bearing Status Post-Op Packet Safety Other Treatments Other Treatment Performed Discussion of set up at home and equipment needs. Pt has FWW, elevated toilet seat and is working getting a shower bench for tub shower. M7 PT-IP Assessment and Plan Start: 01/06/19 16:05 Freq: NEEDED Status: Active Protocol: Document 01/08/19 10:51 (Rec: 01/08/19 11:01 [id number]) PT Summary Assessment and Plan Recommendations To Nursing Amount of Assist Needed 1 Person Assist Discharge Recommendations PT Discharge Recommendations Home with Assistance Other Discharge Recommendations Pt has supportive and help available at home. No steps to enter and equipment in place. Ready for d/c home.
--- NOTE | 2019-01-08 13:49 | PC.NURSE ---
Discharge pt states pain down from 5/10 to 3/10 after 10 mg oxy. d/c instructions provided to pt and his . took Rx to pharmacy in [facility] to get filled prior to pt d/c. aware to contact MD with any additional questions or concerns. pt took all belongings with him. left in w/c with RN escort to car with .
--- NOTE | 2019-01-08 15:56 | CM.IDA ---
Discharge Planning/Care Management CM Discharge Assessment Start: 01/08/19 15:52 Freq: Status: Discharge Protocol: Document 01/08/19 15:52 ISMAEL (Rec: 01/08/19 15:56 ISMAEL [id number]) Discharge Planning Assessment Assigned Scoop Filler HAYLIE Molina DPOA/Assigned Designee Name Judy Smalls, , Dtr Sandra Contact Information Judy: [phone], Sandra: [phone] Advance Directives? No History Provided By Patient Medical Record Prior Living Arrangements House Household Members spouse Type of transporation used prior to Drives own vehicle admit Independent with ADL's Yes Is patient alert and oriented? Yes Barriers to Discharge No Comment Pt POD#2 from hip surgery, DC home scheduled today and cleared by PT, no barriers. Payer: Medicare/[employer]. Pt indp at baseline and plans to return home w/family support today. Met w/pt and explained role, he says he has been through numerous surgeries in the past. He feels he has all he needs for equipment and denies addtl. needs from this TOBACCO DIPPER. HAYLIE Villafana Discharge Plan Home Transportation Arrangement Family Referrals Initiated None needed Review Status In Process
== END 2019-01-08 13:00 | disposition home or self-care (01) | DRG 470 ==
PROVIDERS: Physician Assistant; Admitting Provider Orthopaedic Surgery; PCP Student in an Organized Health Care Education/Training Program; Visit Provider Orthopaedic Surgery
PROC: 0SR902Z Replacement of Right Hip Joint with Metal on Polyethylene Synthetic Substitute, Open Approach (ICD-10-PCS; CPT 27130; principal; 2019-01-06 07:45)
DX: M16.11 Unilateral primary osteoarthritis, right hip (principal); G47.33 Obstructive sleep apnea (adult) (pediatric); H81.09 Meniere's disease, unspecified ear; I10 Essential (primary) hypertension; E78.5 Hyperlipidemia, unspecified; I48.91 Unspecified atrial fibrillation; Z79.01 Long term (current) use of anticoagulants
CPT/HCPCS: 36415; 73502; 85014; 85018; 94762; 97116; 97162; 97530; C1776; A9270; C9290; J0690; J1100; J1885; J2250; J2274; J2405; J2704; J3010; J3370

== ENCOUNTER → 2019-04-29 10:30 | Outpatient (CLI) | payer MEDICARE, OTHER, SELFPAY ==
[2019-01-06 12:40] VITALS: BMI 26.7
[2019-04-29 11:41] LABS: BUN Creatinine Ratio 23.3 (6-22); Blood Urea Nitrogen 21 mg/dL (9-20); Calcium 9.9 mg/dL (8.4-10.2); Carbon Dioxide 29 mmol/L (22-32); Chloride 102 mmol/L (98-107); Estimated Glomerular Filt Rate > 60.0 mL/min (>60); Glucose 119 mg/dL (80-110); HEMOLYSIS < 15 (0-50); Potassium 3.8 mmol/L (3.4-5.1); Sodium 141 mmol/L (137-145)
== END ==
PROVIDERS: PCP Student in an Organized Health Care Education/Training Program; Visit Provider Internal Medicine Cardiovascular Disease
DX: I48.2 Chronic atrial fibrillation (principal)
CPT/HCPCS: 36415; 80048

== ENCOUNTER → 2019-12-01 10:04 | Outpatient (CLI) | payer MEDICARE, OTHER, SELFPAY ==
[2019-01-06 12:40] VITALS: BMI 26.7
[2019-12-01 12:05] LABS: Add Manual Diff / Slide Review NO; Basophils Absolute Auto 0 /uL (0-100); Basophils Percent Auto 0.6 % (0-2); Eosinophils Absolute Auto 100 /uL (0-450); Hematocrit 46.4 % (41-53); Hemoglobin 15.9 g/dL (13.5-17.5); Lymphocytes Absolute Auto 2500 /uL (1100-4500); Lymphocytes Percent Auto 37.1 % (25-40); Mean Corpuscular HGB Conc 34.4 % (30-36); Mean Corpuscular Hemoglobin 34.5 PG (26-34); Mean Corpuscular Volume 100.4 fL (80-100); Monocytes Absolute Auto 600 /uL (0-900); Neutrophils Absolute Auto 3600 /uL (1500-7000); Neutrophils Percent Auto 52.3 % (50-75); Platelet Count 181 X10^3/uL (150-400); Red Blood Cell Count 4.62 X10^6/uL (4.5-5.9); Red Cell Distribution Width 13.6 % (11.6-14.8); White Blood Cell Count 6.9 X10^3/uL (4.5-11.0)
[2019-12-01 12:13] LABS: C-Reactive Protein Quant < 0.5 mg/dL (<1.0)
[2019-12-01 12:37] LABS: Erythrocyte Sedimentation Rate 7 MM/HR (0-15)
== END ==
PROVIDERS: PCP Student in an Organized Health Care Education/Training Program; Referring Provider Orthopaedic Surgery; Visit Provider Orthopaedic Surgery
DX: M54.5 Low back pain (principal); Z96.641 Presence of right artificial hip joint
CPT/HCPCS: 36415; 85025; 85651; 86140

== ENCOUNTER → 2020-11-02 10:37 | Outpatient (CLI) | payer MEDICARE, OTHER, SELFPAY ==
[2019-01-06 12:40] VITALS: BMI 26.7
[2020-11-02 11:45] LABS: INR 3.3 (0.9-1.3); Prothrombin Time 37.6 SECONDS (10.1-12.7)
[2020-11-02 11:57] LABS: BUN Creatinine Ratio 21.7 (6-22); Blood Urea Nitrogen 20 mg/dL (9-20); Calcium 9.5 mg/dL (8.4-10.2); Carbon Dioxide 34 mmol/L (22-32); Chloride 100 mmol/L (98-107); Estimated Glomerular Filt Rate > 60.0 mL/min (>60); Glucose 117 mg/dL (80-110); HEMOLYSIS < 15 (0-50); Potassium 3.3 mmol/L (3.4-5.1); Sodium 141 mmol/L (137-145)
[2020-11-05 09:15] LABS: Fecal Immunochemical Test Negative (Negative)
== END ==
PROVIDERS: PCP Student in an Organized Health Care Education/Training Program; Referring Provider Student in an Organized Health Care Education/Training Program; Visit Provider Student in an Organized Health Care Education/Training Program
DX: Z12.11 Encounter for screening for malignant neoplasm of colon (principal); Z79.01 Long term (current) use of anticoagulants; I10 Essential (primary) hypertension
CPT/HCPCS: 36415; 80048; 82274; 85610

== ENCOUNTER → 2021-01-14 14:46 | Outpatient (CLI) | payer MEDICARE, OTHER, SELFPAY ==
[2019-01-06 12:40] VITALS: BMI 26.7
[2021-01-14 16:19] LABS: COVID19 -Nasal RAPID Negative (Negative)
== END ==
PROVIDERS: PCP Student in an Organized Health Care Education/Training Program; Visit Provider Physician Assistant
DX: R06.02 Shortness of breath (principal); R19.7 Diarrhea, unspecified; R09.89 Other specified symptoms and signs involving the circulatory and respiratory systems
CPT/HCPCS: 87635

== ENCOUNTER → 2021-01-14 15:26 | Outpatient (CLI) | payer MEDICARE, OTHER, SELFPAY ==
[2019-01-06 12:40] VITALS: BMI 26.7
--- NOTE | 2021-01-14 15:28 | DI.RAD.S_ITS ---
PROCEDURE: XR CHEST 2V INDICATIONS: cough, sob, r/o pneumonia TECHNIQUE: 2 views of the chest were acquired. COMPARISON: [facility], , CHEST 1 VIEW, 10/22/2007. [facility], CHEST 1 VIEW, 08/28/2015. FINDINGS: Surgical changes and devices: None. Lungs and pleura: Lungs are clear. No pleural effusions or pneumothorax. Mediastinum: Mediastinal contours are normal. Heart size is normal. Bones and chest wall: No suspicious bony abnormalities. Soft tissues appear unremarkable. IMPRESSION: No acute cardiopulmonary disease. Dictated by: Mandi Barlow M.D. on 01/14/2021 at 15:38 Approved by: Mandi Barlow M.D. on 01/14/2021 at 15:41
== END ==
PROVIDERS: PCP Student in an Organized Health Care Education/Training Program; Referring Provider Physician Assistant; Visit Provider Physician Assistant
DX: J06.9 Acute upper respiratory infection, unspecified (principal); R06.02 Shortness of breath; R09.89 Other specified symptoms and signs involving the circulatory and respiratory systems; R19.7 Diarrhea, unspecified
CPT/HCPCS: 71046; 87635

== ENCOUNTER → 2021-04-24 11:45 | Outpatient (CLI) | payer MEDICARE, OTHER, SELFPAY ==
[2019-01-06 12:40] VITALS: BMI 26.7
[2021-04-24 13:04] LABS: INR 3.3 (0.9-1.3); Prothrombin Time 38.2 SECONDS (10.1-12.7)
== END ==
PROVIDERS: PCP Student in an Organized Health Care Education/Training Program; Referring Provider Student in an Organized Health Care Education/Training Program; Visit Provider Student in an Organized Health Care Education/Training Program
DX: Z79.01 Long term (current) use of anticoagulants (principal)
CPT/HCPCS: 36415; 85610

== ENCOUNTER → 2022-01-14 16:56 | Outpatient (CLI) | payer MEDICARE, OTHER, SELFPAY ==
[2019-01-06 12:40] VITALS: BMI 26.7
[2022-01-14 17:33] LABS: BUN Creatinine Ratio 26.7 (6-22); Blood Urea Nitrogen 23 mg/dL (9-20); Calcium 9.6 mg/dL (8.4-10.2); Carbon Dioxide 28 mmol/L (22-32); Chloride 100 mmol/L (98-107); Estimated Glomerular Filt Rate > 60.0 mL/min (>60); Glucose 103 mg/dL (80-110); HEMOLYSIS 37 (0-50); Potassium 3.2 mmol/L (3.4-5.1); Sodium 140 mmol/L (137-145)
[2022-01-14 18:04] LABS: Prostate Specific Antigen Scrn 4.53 ng/mL (0.1-4.0)
== END ==
PROVIDERS: PCP Student in an Organized Health Care Education/Training Program; Referring Provider Student in an Organized Health Care Education/Training Program; Visit Provider Student in an Organized Health Care Education/Training Program
DX: Z12.5 Encounter for screening for malignant neoplasm of prostate (principal); I10 Essential (primary) hypertension
CPT/HCPCS: 36415; 80048; G0103

== ENCOUNTER → 2022-02-25 09:50 | Outpatient (CLI) | payer MEDICARE, OTHER, SELFPAY ==
[2019-01-06 12:40] VITALS: BMI 26.7
[2022-02-25 11:57] LABS: Prostate Specific Antigen 4.73 ng/mL (0.10-4.00)
== END ==
PROVIDERS: PCP Student in an Organized Health Care Education/Training Program; Referring Provider Student in an Organized Health Care Education/Training Program; Visit Provider Student in an Organized Health Care Education/Training Program
DX: R97.20 Elevated prostate specific antigen [PSA] (principal)
CPT/HCPCS: 36415; 84153

== ENCOUNTER → 2022-08-04 16:54 | Outpatient (CLI) | payer MEDICARE, OTHER, SELFPAY ==
[2022-05-12 14:08] VITALS: BMI 26.7
[2022-08-04 18:34] LABS: Influenza A - CEPHEID Flu A NEGATIVE (NEGATIVE); Influenza B - CEPHEID Flu B NEGATIVE (NEGATIVE); Respiratory Syncytial Virus POSITIVE (Negative)
[2022-08-04 18:56] LABS: COVID-19 CEPHEID PCR (VTM/NP) Negative (Negative)
== END ==
PROVIDERS: PCP Student in an Organized Health Care Education/Training Program; Visit Provider Nurse Practitioner Family
DX: R05.9 Cough, unspecified (principal); R50.9 Fever, unspecified
CPT/HCPCS: 0241U

== ENCOUNTER → 2022-08-04 17:07 | Outpatient (CLI) | payer MEDICARE, OTHER, SELFPAY ==
[2022-05-12 14:08] VITALS: BMI 26.7
--- NOTE | 2022-08-04 17:12 | DI.RAD.S_ITS ---
PROCEDURE: XR CHEST 2V INDICATIONS: Cough TECHNIQUE: 2 views of the chest were acquired. COMPARISON: [facility], CR, XR CHEST 2V, 01/14/2021, 15:34. FINDINGS: Surgical changes and devices: None. Lungs and pleura: Lungs are clear. No pleural effusions or pneumothorax. Mediastinum: Mediastinal contours are normal. Heart size is normal. Bones and chest wall: No suspicious bony abnormalities. Soft tissues appear unremarkable. IMPRESSION: No acute cardiopulmonary pathology. Dictated by: Sotero Ma M.D. on 08/04/2022 at 17:56 Approved by: Sotero Ma M.D. on 08/04/2022 at 17:56
== END ==
PROVIDERS: PCP Student in an Organized Health Care Education/Training Program; Referring Provider Nurse Practitioner Family; Visit Provider Nurse Practitioner Family
DX: R05.9 Cough, unspecified (principal); R50.9 Fever, unspecified
CPT/HCPCS: 0241U; 71046

== ENCOUNTER → 2023-08-06 09:34 | Outpatient (CLI) | payer MEDICARE, OTHER, SELFPAY ==
[2022-05-12 14:08] VITALS: BMI 26.7
[2023-08-06 10:23] LABS: Add Manual Diff / Slide Review NO; Basophils Absolute Auto 0 /uL (0-100); Basophils Percent Auto 0.7 % (0-2); Eosinophils Absolute Auto 0 /uL (0-450); Eosinophils Percent Auto 0.7 % (2-4); Hematocrit 49.8 % (41-53); Hemoglobin 17.2 g/dL (13.5-17.5); Lymphocytes Absolute Auto 2900 /uL (1100-4500); Lymphocytes Percent Auto 39.9 % (25-40); Mean Corpuscular HGB Conc 34.6 % (30-36); Mean Corpuscular Hemoglobin 34.4 PG (26-34); Mean Corpuscular Volume 99.3 fL (80-100); Monocytes Absolute Auto 1000 /uL (0-900); Neutrophils Absolute Auto 3300 /uL (1500-7000); Neutrophils Percent Auto 45.7 % (50-75); Platelet Count 177 X10^3/uL (150-400); Red Blood Cell Count 5.01 X10^6/uL (4.5-5.9); Red Cell Distribution Width 13.7 % (11.6-14.8); White Blood Cell Count 7.3 X10^3/uL (4.5-11.0)
[2023-08-06 10:32] LABS: Alanine Aminotransferase 41 IU/L (<50); Albumin 4.4 g/dL (3.5-5.0); Albumin Globulin Ratio 1.5 (1.0-2.8); Alkaline Phosphatase 49 U/L (38-126); Aspartate Aminotransferase 35 IU/L (17-59); BUN Creatinine Ratio 24.2 (6-22); Bilirubin Total 1.7 mg/dL (0.2-1.3); Blood Urea Nitrogen 22 mg/dL (9-20); Calcium 9.7 mg/dL (8.4-10.2); Carbon Dioxide 30 mmol/L (22-32); Chloride 99 mmol/L (98-107); Cholesterol 147 mg/dL (140-199); Estimated Glomerular Filt Rate > 60 mL/min (>60); Glucose 146 mg/dL (80-110); HDL Cholesterol 45 mg/dL (40-60); HEMOLYSIS < 15 (0-50); LDL Cholesterol Calculated 71 mg/dL (<100); Potassium 3.3 mmol/L (3.4-5.1); Sodium 139 mmol/L (137-145); Total Protein 7.4 g/dL (6.3-8.2); Triglycerides 153 mg/dL (35-150)
[2023-08-06 10:56] LABS: TSH w/ Reflex to FT4 1.06 uIU/mL (0.47-4.68)
[2023-08-06 10:58] LABS: Prostate Specific Antigen Scrn 5.79 ng/mL (0.1-4.0)
== END ==
PROVIDERS: PCP Family Medicine; Referring Provider Family Medicine; Visit Provider Family Medicine
DX: R97.20 Elevated prostate specific antigen [PSA] (principal); E78.2 Mixed hyperlipidemia; Z12.5 Encounter for screening for malignant neoplasm of prostate; I10 Essential (primary) hypertension; Z79.01 Long term (current) use of anticoagulants
CPT/HCPCS: 36415; 80053; 80061; 84443; 85025; G0103

== ENCOUNTER 2023-09-08 13:23 | Emergency (ER) | payer MEDICARE, OTHER, SELFPAY ==
[2022-05-12 14:08] VITALS: BMI 26.7
[2023-09-08 13:47] VITALS: BP 133/81; PULSE 92; RESP 18; TEMP 36.9; O2SAT 98; BMI 27.4
--- NOTE | 2023-09-08 13:53 | DI.CT.S_ITS ---
PROCEDURE: CT HEAD/BRAIN WO CON INDICATIONS: fall on thinners/headache/neck pain TECHNIQUE: Noncontrast 4.5 mm thick angled axial sections acquired from the foramen magnum to the vertex, with coronal and sagittal reformats. For radiation dose reduction, the following was used: automated exposure control, adjustment of mA and/or kV according to patient size. COMPARISON: None. FINDINGS: Image quality: Excellent. CSF spaces: Basal cisterns are patent. No extra-axial fluid collections. The ventricles are symmetric in size and shape. Brain: No intracranial bleeds or masses. There is cerebral volume loss for age, with resultant ventricular and sulcal prominence. There are periventricular and deep white matter chronic small vessel ischemic changes. There is intracranial internal carotid artery atherosclerosis. Skull and face: Calvarium and visualized facial bones appear intact, without suspicious lesions. Sinuses: Visualized sinuses and mastoids are clear. IMPRESSION: No acute intracranial pathology. Dictated by: Benson Faye M.D. on 09/08/2023 at 14:21 Approved by: Benson Faye M.D. on 09/08/2023 at 14:21
--- NOTE | 2023-09-08 13:53 | DI.CT.S_ITS ---
PROCEDURE: CT CERVICAL SPINE WO CON INDICATIONS: fall on thinners/headache/neck pain TECHNIQUE: Noncontrast 3 mm thick sections acquired from the skull base to the T4 level. Sagittal and coronal reformats were then constructed. For radiation dose reduction, the following was used: automated exposure control, adjustment of mA and/or kV according to patient size. COMPARISON: None. FINDINGS: Image quality: Excellent. Bones: No fractures or dislocations. Visualized superior ribs are intact. Interbody fusion at C5-C6, potentially postsurgical or congenital. Prominent T3 hemangioma. Significant bilateral bony foraminal narrowing at C3-C4 and C4-C5. Multilevel bilateral facet arthropathy. Soft tissues: Prevertebral soft tissues are normal in thickness. No paravertebral hematomas. No apical pneumothoraces. IMPRESSION: 1. No acute cervical fracture or dislocation. 2. Cervical spondylosis. Dictated by: Benson Faye M.D. on 09/08/2023 at 14:17 Approved by: Benson Faye M.D. on 09/08/2023 at 14:20
--- NOTE | 2023-09-08 14:40 | ED_ITS ---
HPI - Fall General Chief Complaint: Fall Stated Complaint: fell and hit head/neck t-4 Time Seen by Provider: 09/08/23 14:15 Source: patient Mode of arrival: Ambulatory History of Present Illness HPI Narrative: 68yoM presents by private vehicle for headache and neck pain x4 days. Patient slipped and fell, striking his left latter-day against the ground. He does take warfarin daily. Patient is complaining of persistent intermittent headaches and left-sided neck pain. Denies numbness, weakness, tingling of his extremities. Related Data Home Medications Medication Instructions Recorded Confirmed multivitamin 1 cap PO DAILY ##0 06/05/10 07/24/23 omega 2-wks-pdj-fish oil 1,000 mg 1 cap PO DAILY ##0 08/04/12 07/24/23 (120 mg-180 mg) capsule (Fish Oil) Previous Rx's Medication Instructions Recorded acetaminophen 325 mg tablet 975 mg (3 x 325 mg) PO TID #60 tabs 01/08/19 atenolol 100 mg tablet 100 mg PO QPM #90 tabs 09/29/19 sildenafil (pulm.hypertension) 20 20 - 100 mg (1 - 5 x 20 mg) PO 08/30/20 mg tablet DAILY PRN sexual activity #30 tabs hydrochlorothiazide 50 mg tablet 50 mg PO QDAY #30 tabs 12/04/21 benzonatate 100 mg capsule 100 mg PO BID PRN cough #20 caps 08/04/22 simvastatin 20 mg tablet 20 mg PO HS #90 tabs 11/24/22 warfarin 2.5 mg tablet See Rx Instructions .Route 11/24/22 .COMPLEX #120 tabs warfarin 2.5 mg tablet 2.5 mg PO .COMPLEX #14 tabs 12/08/22 methocarbamol 500 mg tablet 500 mg PO TID #30 tabs 09/08/23 Allergies Allergy/AdvReac Type Severity Reaction Status Date / Time amoxicillin AdvReac Severe Septic Verified 07/24/23 11:00 Encephalitis tramadol [TRAMADOL] AdvReac Severe Septic Verified 07/24/23 11:00 encephalitis Review of Systems Review of Systems Narrative: Negative except as noted above Patient History Medical History GERD (gastroesophageal reflux disease) Mitral valve regurgitation KADE (obstructive sleep apnea) Functional mitral regurgitation Knee pain Shoulder pain Vertigo (~1989) Diverticular disease Hypertension Atrial fibrillation Surgical History Anesthesia History of colostomy History of sigmoidoscopy History of laparoscopy History of knee surgery History of hernia surgery Shoulder pain, left History of neck surgery Family History Father Congestive heart failure Hypertension Heart disease Mother Congestive heart failure Diabetes mellitus Hypertension Heart disease Stroke Brother Hyperlipidemia Sister Hyperlipidemia Hypertension Grandfather Stroke Grandmother Heart disease Grandmother Stroke Social History (System 08/10/18 @ 11:31 by Ange Anne) household members: spouse Smoking Status: Never smoker alcohol intake: former substance use type: does not use Smoking Status: Never smoker alcohol intake frequency: holidays/special occasions only Substance Use Type: does not use Exam Initial Vital Signs Initial Vital Signs: Vital Signs Temperature 98.5 F 09/08/23 13:47 Pulse Rate 92 H 09/08/23 13:47 Respiratory Rate 18 09/08/23 13:47 Blood Pressure 133/81 09/08/23 13:47 Pulse Oximetry 98 09/08/23 13:47 Oxygen Delivery Method Room Air 09/08/23 13:47 Const: Awake, alert, no acute distress, nontoxic appearing Eyes: PERRL, EOMI, conjunctiva normal ENT: Atraumatic, dentition normal, mucous membranes moist Neck: No deformity, no midline vertebral tenderness, left-sided paraspinal muscle tenderness to deep palpation Cardiac: regular rate, regular rhythm RESP: unlabored, clear bilaterally, no wheezing GI: Atraumatic, soft, nontender, nondistended, no rebound, no guarding MSK: Atraumatic, full range of motion, pulses equal Skin: Warm, Dry, intact, no rashes Neuro: AO x3, CN II-XII grossly intact, moves all extremities Psych: affect normal, mood normal, not suicidal, not homicidal Course Orders Ordered: Discontinued Medications Lidocaine (Lidocaine Patch 1 Each Adh..Patch) 1 each TOP NOW ONE Stop: 09/08/23 14:43 Last Admin: 09/08/23 14:48 Dose: 1 each Documented By: APRIL Methocarbamol (Methocarbamol 500 Mg Tablet) 750 mg PO NOW ONE Stop: 09/08/23 14:43 Last Admin: 09/08/23 14:48 Dose: 750 mg Documented By: APRIL Vital Signs Vital signs: Vital Signs - 8 hr 09/08/23 13:47 Temperature 98.5 F Pulse Rate 92 H Respiratory Rate 18 Blood Pressure 133/81 Pulse Oximetry 98 Oxygen Delivery Method Room Air MDM - Fall Differential Diagnosis Differential diagnosis: Likely syncope, concussion with loss of consciousness and concussion without loss of consciousness Medical Records Medical records narrative: Ground level fall with persistent head and neck pain. CT scan of head and C- spine show no acute pathology, no fractures, no intracranial hemorrhage, no masses. Patient is neurologically and vascularly intact, no evidence of other occult injury. Patient was informed of his CT results, recommended Tylenol, muscle relaxers, gentle stretching for his neck pain as well as the application of heat and or ice as desired for comfort. Patient states he is a contraindication to NSAIDs due to his cardiac medications. Discharge Plan Departure Patient Disposition: Home Clinical Impression: Head pain, Neck strain Instructions: DI for Headache, DI for Muscle Spasm Prescriptions: New methocarbamol 500 mg tablet 500 mg PO TID Qty: 30 0RF No Action benzonatate 100 mg capsule 100 mg PO BID PRN (Reason: cough) Qty: 20 0RF multivitamin Capsule 1 cap PO DAILY Qty: 0 omega 1-inm-svh-fish oil [Fish Oil] 1,000 mg (120 mg-180 mg) Capsule 1 cap PO DAILY Qty: 0 hydrochlorothiazide 50 mg tablet 50 mg PO QDAY Qty: 30 0RF simvastatin 20 mg tablet 20 mg PO HS Qty: 90 1RF warfarin 2.5 mg tablet See Rx Instructions .ROUTE .COMPLEX Qty: 120 3RF Dose Instruction: TAKE 2 TABLETS ON THURSDAY, THURSDAY, AND THURSDAY AND TAKE 1 TABLET ON THURSDAY, THURSDAY, THURSDAY, AND THURSDAY.TEVA MFR Rx Instructions: TAKE 2 TABLETS ON THURSDAY, THURSDAY, AND THURSDAY AND TAKE 1 TABLET ON THURSDAY, THURSDAY, THURSDAY, AND THURSDAY.TEVA MFR warfarin 2.5 mg tablet 2.5 mg PO .COMPLEX Qty: 14 0RF Rx Instructions: Take 5mg Mon and Thu and 2.5mg all other days, or as directed. atenolol 100 mg tablet 100 mg PO QPM Qty: 90 3RF sildenafil (pulm.hypertension) 20 mg tablet 20 - 100 mg PO DAILY PRN (Reason: sexual activity) Qty: 30 11RF Rx Instructions: Take 30 minutes prior to sexual activity. acetaminophen 325 mg Tablet 975 mg PO TID Qty: 60 1RF Referrals: [place] Obrien DO [Primary Care Provider] - Stand Alone Forms: Patient Portal/API
[2023-09-08] MEDS: LIDOCAINE PATCH 1 EACH ADH..PATCH TOP (14:48)
[2023-09-08] MEDS: methocarbamoL 500 MG TABLET 750 MG PO (14:48)
== END 2023-09-08 15:00 | disposition home or self-care (01) ==
PROVIDERS: Emergency Provider Emergency Medicine; PCP Family Medicine
DX: S16.1XXA Strain of muscle, fascia and tendon at neck level, initial encounter (principal); R51.9 Headache, unspecified; M47.812 Spondylosis without myelopathy or radiculopathy, cervical region; W01.198A Fall on same level from slipping, tripping and stumbling with subsequent striking against other object, initial encounter; Z79.01 Long term (current) use of anticoagulants
CPT/HCPCS: 70450; 72125; 99283; 99284

== ENCOUNTER → 2023-11-10 17:29 | Outpatient (CLI) | payer MEDICARE, OTHER, SELFPAY ==
[2022-05-12 14:08] VITALS: BMI 26.7
[2023-11-10 18:37] LABS: INR 2.2 (0.9-1.3); Prothrombin Time 25.4 SECONDS (9.4-12.5)
[2023-11-10 18:41] LABS: Alanine Aminotransferase 38 IU/L (<50); Albumin 4.7 g/dL (3.5-5.0); Albumin Globulin Ratio 1.3 (1.0-2.8); Alkaline Phosphatase 52 U/L (38-126); Aspartate Aminotransferase 38 IU/L (17-59); BUN Creatinine Ratio 25.3 (6-22); Bilirubin Total 1.7 mg/dL (0.2-1.3); Blood Urea Nitrogen 23 mg/dL (9-20); Calcium 9.9 mg/dL (8.4-10.2); Carbon Dioxide 31 mmol/L (22-32); Chloride 98 mmol/L (98-107); Estimated Glomerular Filt Rate > 60 mL/min (>60); Globulin 3.6 g/dL (1.7-4.1); Glucose 133 mg/dL (80-110); HEMOLYSIS 27 (0-50); Potassium 3.6 mmol/L (3.4-5.1); Sodium 138 mmol/L (137-145); Total Protein 8.3 g/dL (6.3-8.2)
[2023-11-10 19:46] LABS: Hemoglobin A1C% w Est Avg Glu 6.6 % (4.0-6.0)
[2023-11-14 07:58] LABS: PSA Free % 22.1 % (.); PSA, Total 7.2 ng/mL (0.0-4.0)
== END ==
PROVIDERS: PCP Family Medicine; Referring Provider Family Medicine; Visit Provider Family Medicine
DX: Z79.01 Long term (current) use of anticoagulants (principal); R73.03 Prediabetes; R97.20 Elevated prostate specific antigen [PSA]; I10 Essential (primary) hypertension
CPT/HCPCS: 36415; 80053; 83036; 84153; 84154; 85610

== ENCOUNTER → 2024-01-08 11:47 | Outpatient (CLI) | payer MEDICARE, OTHER, SELFPAY ==
[2022-05-12 14:08] VITALS: BMI 26.7
--- NOTE | 2024-01-08 11:48 | DI.RAD.S_ITS ---
PROCEDURE: XR LUMBAR SPINE 2-3V INDICATIONS: S/P fall TECHNIQUE: 3 views of the lumbar spine were acquired. COMPARISON: None. FINDINGS: Bones: 5 [id number] vertebrae are present. There is normal bony alignment. No vertebral body compression fractures. No suspicious bony lesions. Lower lumbar spine disc space narrowing and facet arthropathy Soft tissues: Overlying bowel gas pattern is normal. No suspicious soft tissue calcifications. Atherosclerotic calcification in the abdominal aorta noted without evidence of aneurysm. IMPRESSION: Lower lumbar spine degenerative disc disease and arthropathy Approved by: Giovanni Cohen M.D. on 01/08/2024 at 19:56
--- NOTE | 2024-01-08 11:48 | DI.RAD.S_ITS ---
PROCEDURE: XR HIP W PEL IF DONE LT MIN 4V INDICATIONS: S/P fall TECHNIQUE: AP pelvis and lateral view of the hip acquired. COMPARISON: [facility], [place], XR HIP W PEL IF DONE RT 2V, 01/06/2019, 11:47. FINDINGS: Bones: Patient is status post right hip arthroplasty, with hardware components in expected positions. The hip joint appears congruent. The visualized bony structures appear intact. Soft tissues: Overlying postoperative changes are noted. Diffuse atherosclerotic vascular calcification IMPRESSION: Expected post-operative appearance of a hip arthroplasty. Approved by: Giovanni Cohen M.D. on 01/08/2024 at 19:57
== END ==
PROVIDERS: PCP Family Medicine; Referring Provider Physician Assistant; Visit Provider Physician Assistant
DX: M51.36 Other intervertebral disc degeneration, lumbar region (principal); M47.816 Spondylosis without myelopathy or radiculopathy, lumbar region; R52 Pain, unspecified; Z96.641 Presence of right artificial hip joint
CPT/HCPCS: 72100; 73522

== ENCOUNTER → 2024-01-12 15:03 | Outpatient (CLI) | payer MEDICARE, OTHER, SELFPAY ==
[2022-05-12 14:08] VITALS: BMI 26.7
--- NOTE | 2024-01-12 15:06 | DI.RAD.S_ITS ---
PROCEDURE: XR THORACIC SPINE 3V INDICATIONS: Fall - pain just to R of mid-lower thoracic spine TECHNIQUE: 3 views of the thoracic spine were acquired. COMPARISON: [facility], [place], XR CHEST 2V, 08/04/2022, 17:12. FINDINGS: Bones: No fractures or dislocations. No suspicious bony lesions. 12 pairs of ribs are noted, and appear intact where visualized. Similar, very mild wedge deformity of the T6 vertebral body. Soft tissues: No paravertebral stripe thickening. IMPRESSION: No acute bony abnormality. Similar, very mild wedge deformity of the T6 vertebral body. Dictated by: Donn Gilbert M.D. on 01/12/2024 at 16:46 Approved by: Donn Gilbert M.D. on 01/12/2024 at 16:48
--- NOTE | 2024-01-12 15:06 | DI.RAD.S_ITS ---
PROCEDURE: XR RIBS RT 2V INDICATIONS: Fall - pain just to R of mid-lower thoracic spine TECHNIQUE: 2 views of the ribs were acquired. COMPARISON: None. FINDINGS: Surgical changes and devices: None. Bones and chest wall: No fractures or dislocations. No suspicious bony lesions. Overlying soft tissues appear unremarkable. Lungs and pleura: The visualized lung appears clear. No pleural effusions or pneumothorax are visible. IMPRESSION: No displaced rib fracture. Dictated by: Donn Gilbert M.D. on 01/12/2024 at 16:45 Approved by: Donn Gilbert M.D. on 01/12/2024 at 16:46
== END ==
PROVIDERS: PCP Family Medicine; Referring Provider Physician Assistant; Visit Provider Physician Assistant
DX: R07.81 Pleurodynia (principal); M43.8X4 Other specified deforming dorsopathies, thoracic region
CPT/HCPCS: 71100; 72072

== ENCOUNTER → 2024-01-23 13:46 | Outpatient (CLI) | payer MEDICARE, OTHER, SELFPAY ==
[2022-05-12 14:08] VITALS: BMI 26.7
--- NOTE | 2024-01-23 13:50 | DI.MRI.S_ITS ---
PROCEDURE: MR LUMBAR SPINE WO CON INDICATIONS: Compression fracture status post fall TECHNIQUE: Noncontrast sagittal T1 spin echo and T2 fast echo, sagittal STIR, and T2 fast spin echo through the lumbar spine. In cases with scoliosis, additional coronal T2 fast spin echo may be performed. COMPARISON: [facility], CT, ABDOMEN/PELVIS WITH CONTRAST, 02/23/2016, 13:38. [facility], [place], XR LUMBAR SPINE 2-3V, 01/08/2024, 12:04. FINDINGS: Image quality: Excellent. Alignment and Curvature: There is normal bony alignment. Bone Marrow: Marrow is of normal overall signal. No acute vertebral body compression fractures. Spinal Cord: Conus medullaris terminates at the L1 level. Visualized cord demonstrates normal signal and size. Paraspinous Soft Tissues: No paravertebral masses. Right renal T2 hyperintensity compatible with a cyst. This is similar to that seen on comparison CT. T12-L1: Mild bilateral facet arthropathy. No significant neuroforaminal or spinal canal stenosis. L1-L2: Degenerative endplate changes. Moderate bilateral facet arthropathy ligamentum flavum hypertrophy. No significant neuroforaminal or spinal canal stenosis. L2-L3: Moderate bilateral facet arthropathy. Ligamentum flavum hypertrophy. Degenerative endplate changes. No significant neuroforaminal or spinal canal stenosis. L3-L4: Degenerative endplate changes. Moderate bilateral facet arthropathy. Ligamentum flavum hypertrophy. Small symmetric disc bulge. No significant neuroforaminal or spinal canal stenosis. L4-L5: Moderate bilateral facet arthropathy more severe on the left. Bilateral facet arthropathy. Mild degenerative endplate changes. Small symmetric disc bulge. Findings result in minimal spinal canal stenosis and minimal bilateral neural foraminal stenosis. L5-S1: Moderate bilateral facet arthropathy. Ligamentum flavum hypertrophy. Degenerative endplate changes. Mild loss of disc height. Eccentric to the left disc bulge. Mild-moderate spinal canal stenosis. Mild right and moderate left bilateral neuroforaminal stenosis. IMPRESSION: Multilevel, multifactorial lumbar spondylosis as detailed above by vertebral body level. Findings are most pronounced at L4-5 and L5-S1. No evidence for acute compression fractures. Dictated by: Wagner Reeves M.D. on 01/25/2024 at 21:44 Approved by: Wagner Reeves M.D. on 01/25/2024 at 21:53
--- NOTE | 2024-01-23 13:50 | DI.MRI.S_ITS ---
PROCEDURE: MR THORACIC SPINE WO CON INDICATIONS: Compression fracture status post fall TECHNIQUE: Noncontrast sagittal T1 spine echo and T2 fast spin echo, sagittal STIR, and T2 fast spin echo through the thoracic spine. COMPARISON: [facility], CT, CT CERVICAL SPINE WO CON, 09/08/2023, 14:07. [facility], CR, XR THORACIC SPINE 3V, 01/12/2024, 15:08. FINDINGS: Image quality: Diagnostic Alignment and Curvature: There is normal bony alignment. Bone Marrow: There are multiple vertebral body hemangiomas seen throughout the thoracic spine. A large, prominent vertebral body hemangioma is visualized in the T3 vertebral body. A 2nd prominent vertebral body hemangioma is noted at T8. Small hemangiomas visualized at C7, and T6. Otherwise, marrow is of normal overall signal. There is a region of T2/STIR hyperintensity and T1 hypointensity involving the anterior, inferior margin of the T10 vertebral body. No significant vertebral body height loss. No surrounding paravertebral soft tissue edema or hematoma. Finding may represent a nondisplaced compression deformity. There is minimal anterior wedge compression deformity with minimal loss of disc height involving the superior endplate of the T4 vertebral body. No significant hyperintensity on STIR or T2 sequences. Spinal Cord: Visualized spinal cord is normal in size and signal. Paraspinous Soft Tissues: No paravertebral masses. Miscellaneous: Multilevel degenerative endplate changes seen throughout the visualized thoracolumbar spine. Findings are most pronounced in the midthoracic spine but most severe at T7-8. On axial images, central canal appears widely patent at all scanned levels. There is mild bilateral neuroforaminal stenosis at T10-11. At all other levels, no significant neuroforaminal stenosis identified. IMPRESSION: 1. Possible compression deformity involving the anterior, inferior endplate of the T10 vertebral body without significant loss of vertebral body height. This is likely subacute in etiology. No significant surrounding soft tissue edema. 2. Age-indeterminate but likely subacute to chronic mild anterior compression deformity of the anterior, superior endplate of the T4 vertebral body. No significant T2/STIR hyperintensity. 3. Multilevel thoracic spondylosis without significant spinal canal or neuroforaminal stenosis. 4. Multiple vertebral body hemangiomas. Dictated by: Wagner Reeves M.D. on 01/25/2024 at 21:53 Approved by: Wagner Reeves M.D. on 01/25/2024 at 22:24
== END ==
LOC: MRI 13:47
PROVIDERS: PCP Family Medicine; Referring Provider Anesthesiology; Visit Provider Anesthesiology
DX: S22.050A Wedge compression fracture of T5-T6 vertebra, initial encounter for closed fracture (principal); M47.816 Spondylosis without myelopathy or radiculopathy, lumbar region; M47.817 Spondylosis without myelopathy or radiculopathy, lumbosacral region; M47.814 Spondylosis without myelopathy or radiculopathy, thoracic region; D18.09 Hemangioma of other sites; M54.50 Low back pain, unspecified; M54.6 Pain in thoracic spine; W19.XXXA Unspecified fall, initial encounter
CPT/HCPCS: 72146; 72148

== ENCOUNTER 2024-02-11 12:19 | Inpatient (IN) | payer MEDICARE, OTHER, SELFPAY ==
[2022-05-12 14:08] VITALS: BMI 26.7
[2024-02-11] VITALS (27 sets, daily range): BP systolic 125–186; BP diastolic 73–96; PULSE 65–100; RESP 12–24; TEMP 36.4; O2SAT 94–100; BMI 27.6
[2024-02-11 13:42] LABS: INR 1.7 (0.9-1.3); Prothrombin Time 20.1 SECONDS (9.4-12.5)
[2024-02-11 13:46] LABS: Add Manual Diff / Slide Review NO; Basophils Absolute Auto 100 /uL (0-100); Basophils Percent Auto 0.4 % (0-2); Eosinophils Absolute Auto 0 /uL (0-450); Eosinophils Percent Auto 0.1 % (2-4); Hematocrit 48.1 % (41-53); Hemoglobin 16.5 g/dL (13.5-17.5); Lymphocytes Absolute Auto 2600 /uL (1100-4500); Lymphocytes Percent Auto 14.9 % (25-40); Mean Corpuscular HGB Conc 34.2 % (30-36); Mean Corpuscular Hemoglobin 33.9 PG (26-34); Mean Corpuscular Volume 99.1 fL (80-100); Monocytes Absolute Auto 1200 /uL (0-900); Neutrophils Absolute Auto 13400 /uL (1500-7000); Neutrophils Percent Auto 77.6 % (50-75); Platelet Count 211 X10^3/uL (150-400); Red Blood Cell Count 4.86 X10^6/uL (4.5-5.9); Red Cell Distribution Width 13.4 % (11.6-14.8); White Blood Cell Count 17.3 X10^3/uL (4.5-11.0)
[2024-02-11 14:00] LABS: Alanine Aminotransferase 35 IU/L (<50); Albumin 4.8 g/dL (3.5-5.0); Albumin Globulin Ratio 1.5 (1.0-2.8); Alkaline Phosphatase 53 U/L (38-126); Aspartate Aminotransferase 37 IU/L (17-59); BUN Creatinine Ratio 30.9 (6-22); Bilirubin Total 2.1 mg/dL (0.2-1.3); Blood Urea Nitrogen 21 mg/dL (9-20); Calcium 9.7 mg/dL (8.4-10.2); Carbon Dioxide 28 mmol/L (22-32); Chloride 98 mmol/L (98-107); Estimated Glomerular Filt Rate > 60 mL/min (>60); Globulin 3.1 g/dL (1.7-4.1); Glucose 151 mg/dL (80-110); HEMOLYSIS 21 (0-50); Lipase 88 U/L (23-300); Sodium 135 mmol/L (137-145); Total Protein 7.9 g/dL (6.3-8.2)
[2024-02-11] MEDS: KETOROLAC 30 MG/ML VIAL 15 MG IV (15:20)
[2024-02-11] MEDS: SODIUM CHLORIDE 0.9% 1,000 ML 1000 ML IV (15:21)
[2024-02-11 15:34] LABS: Lactate (Lactic Acid) 3.5 mmol/L (0.7-2.1)
[2024-02-11 15:52] LABS: Procalcitonin 0.04 ng/mL (<0.5)
[2024-02-11 16:56] LABS: Reflexed Lactate in 2 Hours Y
[2024-02-11 17:06] LABS: Lactate 2HR (Lactic Acid Rflx) 1.5 mmol/L (0.7-2.1)
--- NOTE | 2024-02-11 18:25 | DI.CT.S_ITS ---
PROCEDURE: CT ABDOMEN PELVIS W CON INDICATIONS: RLQ PAIN, N/V, SEPSIS TECHNIQUE: After the administration of intravenous contrast, axial sections acquired from the lung bases to the pubic symphysis. Coronal and sagittal reformats were performed. For radiation dose reduction, the following was used: automated exposure control, adjustment of mA and/or kV according to patient size. COMPARISON: [facility], CT, ABDOMEN/PELVIS WITH CONTRAST, 02/23/2016, 13:38. FINDINGS: Image quality: Diagnostic. Lower Chest: Mild dependent atelectasis in posterior aspect of left lung base is seen. Heart size is normal, no pericardial effusion. ABDOMEN: Liver: No solid mass. Hepatic steatosis is seen. Gallbladder: A calcified stone in dependent portion of gallbladder lumen is seen. There is gallbladder wall thickening and mild edema. Biliary ducts: No biliary dilation. Pancreas: No ductal dilation. Spleen: Size is within normal limits. Adrenal Glands: No adrenal nodules. Kidneys and Ureters: No hydronephrosis. No solid mass. Small bilateral simple appearing renal cortical cysts are seen measures up to 2.1 cm in size in midpole right kidney and 2.3 cm in size in midpole left kidney. No complex renal cystic lesion which requires follow up. Stomach and Bowel: There is a small hiatal hernia. No evidence of bowel obstruction. No abnormal bowel wall thickening or mesenteric fat stranding. Normal appearing appendix is noted in right lower quadrant. Sigmoid diverticulosis is seen without sigmoid colon wall thickening or mesenteric fat stranding. Post partial sigmoidectomy changes in lower pelvis is seen. Surgical anastomosis is intact. No abscess collection. No intraperitoneal fluid. No free air. Ventral Wall: No significant ventral hernia. Abdominal Nodes: No retroperitoneal or mesenteric adenopathy by size criteria. Vessels: Aorta and inferior vena cava are normal in size. PELVIS: Pelvic Organs: Unremarkable. Bladder: No bladder wall thickening, accounting for underdistention. Pelvic Nodes: No enlarged lymph nodes. Miscellaneous: No inguinal hernias are seen. Bones: No aggressive osseous abnormality. < right hip arthroplasty is seen with significant beam hardening artifacts. No acute vertebral body compression fracture. IMPRESSION: 1. Cholelithiasis with gallbladder wall thickening and mild edema concerning for cholecystitis. No biliary ductal dilatation. 2. Small hiatal hernia. No bowel obstruction or abnormal bowel wall thickening. Sigmoid diverticulosis without evidence of acute diverticulitis. Normal appendix. No free fluid or free air. 3. Hepatic steatosis, no discrete hepatic lesion. 4. Bilateral renal cysts. No hydronephrosis or hydroureter. Dictated by: Sotero Ma M.D. on 02/11/2024 at 19:01 Approved by: Sotero Ma M.D. on 02/11/2024 at 19:06
--- NOTE | 2024-02-11 18:30 | ED.ABDPAIN ---
HPI - Abdominal Pain General Chief Complaint: Abdominal Pain Stated Complaint: abd back pain and headache Time Seen by Provider: 02/11/24 15:16 Source: patient Mode of arrival: Ambulatory History of Present Illness HPI narrative: 68-year-old male with history of AFib on warfarin, hypertension presents by private vehicle from home for right-sided abdominal pain with nausea and vomiting. Reports associated back pain. He has known thoracic compression fractures, however his abdominal pain has exacerbated his back pain. Also feels very chilled and cold. No medications taken prior to arrival. Related Data Home Medications Medication Instructions Recorded Confirmed multivitamin 1 cap PO DAILY ##0 06/05/10 02/04/24 omega [id number] oil 1,000 mg 1 cap PO DAILY ##0 08/04/12 02/04/24 (120 mg-180 mg) capsule (Fish Oil) atenolol 50 mg tablet 50 mg PO DAILY 11/10/23 02/04/24 Previous Rx's Medication Instructions Recorded sildenafil (pulm.hypertension) 20 20 - 100 mg (1 - 5 x 20 mg) PO 08/30/ mg tablet DAILY PRN sexual activity #30 tabs hydrochlorothiazide 50 mg tablet 50 mg PO QDAY #30 tabs 12/04/21 warfarin 2.5 mg tablet 2.5 mg PO .COMPLEX #14 tabs 10/21/23 warfarin 2.5 mg tablet 2.5 mg PO .COMPLEX #180 tabs 10/21/23 simvastatin 20 mg tablet 20 mg PO HS #90 tabs 11/02/23 hydrocodone 5 mg-acetaminophen 325 1 tab PO Q6H PRN pain #20 tabs 01/12/24 mg tablet calcitonin (salmon) 200 1 spray intranasal (ALT) DAILY 01/19/24 unit/actuation nasal spray vert fx 3 months #3.7 mL lidocaine 5 % topical patch 1 patch topical DAILY Vertebral 01/19/24 compression fracture #30 ea pregabalin 50 mg capsule (Lyrica) 50 mg PO TID #90 caps 01/19/24 Allergies Allergy/AdvReac Type Severity Reaction Status Date / Time amoxicillin AdvReac Severe Septic Verified 02/04/24 16:35 Encephalitis tramadol [TRAMADOL] AdvReac Severe Septic Verified 02/04/24 16:35 encephalitis Review of Systems Review of Systems Narrative: See HPI Patient History Medical History Thoracic compression fracture Lumbar spondylosis Compression fracture of T6 vertebra Thoracic back pain Low back pain Hypokalemia GERD (gastroesophageal reflux disease) Mitral valve regurgitation KADE (obstructive sleep apnea) Functional mitral regurgitation Knee pain Shoulder pain Vertigo (~1989) Diverticular disease Hypertension Atrial fibrillation Surgical History Anesthesia History of colostomy History of sigmoidoscopy History of laparoscopy History of knee surgery History of hernia surgery Shoulder pain, left History of neck surgery Family History Father Congestive heart failure Hypertension Heart disease Mother Congestive heart failure Diabetes mellitus Hypertension Heart disease Stroke Brother Hyperlipidemia Sister Hyperlipidemia Hypertension Grandfather Stroke Grandmother Heart disease Grandmother Stroke Social History household members: spouse Smoking Status: Never smoker alcohol intake: former substance use type: does not use Smoking Status: Never smoker alcohol intake frequency: holidays/special occasions only Substance Use Type: does not use Exam Initial Vital Signs Initial Vital Signs: Vital Signs Temperature 97.5 F L 02/11/24 12:40 Pulse Rate 65 02/11/24 12:40 Respiratory Rate 18 02/11/24 12:40 Blood Pressure 137/73 02/11/24 12:40 Pulse Oximetry 97 02/11/24 12:40 Oxygen Delivery Method Room Air 02/11/24 12:40 Const: Awake, alert, ill-appearing, nontoxic Cardiac: Irregularly irregular rhythm RESP: unlabored, clear bilaterally, no wheezing GI: Soft, right lower quadrant tenderness to deep palpation without rebound or guarding Skin: Warm, Dry, intact, no rashes Neuro: AO x3, CN II-XII grossly intact, moves all extremities Course Orders Ordered: ED Orders 02/11/24 16:00 Blood Culture Stat 02/11/24 18:25 CT abdomen pelvis w con Stat 02/11/24 19:16 US abdomen limited Stat 02/11/24 20:54 Consult to General Surgery Stat Acetaminophen (Acetaminophen 325 Mg Tablet) 650 mg PO Q6H PRN PRN Reason: Fever/Mild Pain (1-3) Hydrocodone Bitart/Acetaminophen (Hydrocodone/Acet 5/325 Tablet) 1 tab PO Q6H PRN PRN Reason: pain Hydrocodone Bitart/Acetaminophen (Hydrocodone/Acet 5/325 Tablet) 2 tab PO Q4H PRN PRN Reason: Pain, Severe (7-10) Albuterol (Albuterol 2.5 Mg/3 Ml Neb (Adult)) 2.5 mg INH [id number] PRN PRN Reason: Dyspnea Atenolol (Atenolol 50 Mg Tablet) 50 mg PO DAILY [facility] Atorvastatin Calcium (Atorvastatin 20 Mg Tablet) 10 mg PO BEDTIME ASHOK Last Admin: 02/11/24 22:25 Dose: 10 mg Documented By: REID Hydralazine HCl (Hydralazine 20 Mg/Ml Vial) 10 mg IV Q6HR PRN PRN Reason: SBP>= 160 or DBP >=110 Hydromorphone HCl (Hydromorphone 0.5 Mg Inj) 0.5 mg IV Q2H PRN PRN Reason: Pain, Severe (7-10) Last Admin: 02/11/24 22:01 Dose: 0.5 mg Documented By: REID Sodium Chloride (Normal Saline 0.9%) 1,000 mls @ 100 mls/hr IV CONT ASHOK Last Admin: 02/11/24 22:27 Dose: 100 mls/hr Documented By: REID Ceftriaxone Sodium 2,000 mg/ (Sodium Chloride) 100 mls @ 200 mls/hr IV Q24H ASHOK Metronidazole (Flagyl) 500 mg in 100 mls @ 100 mls/hr IV Q6H ASHOK POTASSIUM CHLORIDE IN WATER (Potassium Cl 10 Meq/100 Ml Nancy) 10 meq in 100 mls @ 100 mls/hr IV Q1H ASHOK Stop: 02/12/24 01:29 Last Admin: 02/11/24 22:49 Dose: 100 mls/hr Documented By: Infusion: 02/11/24 22:49 Dose: Infused Documented By: Admin: 02/11/24 21:56 Dose: 100 mls/hr Documented By: REID Lidocaine (Lidocaine 5% Patch) 1 each TOP DAILY [facility] Lorazepam (Lorazepam 2 Mg/Ml Inj) 0.25 mg IV Q4HR PRN PRN Reason: Anxiety Melatonin (Melatonin 3 Mg Tablet) 9 mg PO BEDTIME PRN PRN Reason: insomnia Naloxone HCl (Naloxone 0.4 Mg/Ml Vial) 0.2 mg IV Q2MIN PRN PRN Reason: Opiate Reversal Non-Formulary Medication (Sildenafil (Pulm.Hypertension)) 20 mg PO DAILY PRN PRN Reason: sexual activity Ondansetron HCl (Ondansetron 4 Mg Odt) 4 mg PO NOW PRN PRN Reason: Nausea And Vomiting Ondansetron HCl (Ondansetron 4 Mg/2 Ml Inj) 4 mg IV NOW PRN PRN Reason: Nausea And Vomiting Ondansetron HCl (Ondansetron 4 Mg/2 Ml Inj) 4 mg IV Q8HR PRN PRN Reason: Nausea And Vomiting Pregabalin (Pregabalin 50 Mg Capsule) 50 mg PO TID ASHOK Discontinued Medications Sodium Chloride (Normal Saline 0.9%) 1,000 mls @ 1,000 mls/hr IV BOLUS ONE Stop: 02/11/24 16:15 Last Infusion: 02/11/24 16:32 Dose: Infused Documented By: Admin: 02/11/24 15:21 Dose: 1,000 mls/hr Documented By: REID Ceftriaxone Sodium 2,000 mg/ (Sodium Chloride) 100 mls @ 200 mls/hr IV NOW ONE Stop: 02/11/24 20:22 Last Infusion: 02/11/24 21:25 Dose: Infused Documented By: Admin: 02/11/24 20:53 Dose: 200 mls/hr Documented By: REID Metronidazole (Flagyl) 500 mg in 100 mls @ 100 mls/hr IV NOW ONE Stop: 02/11/24 21:20 Last Infusion: 02/11/24 21:55 Dose: Infused Documented By: Admin: 02/11/24 20:53 Dose: 100 mls/hr Documented By: REID Ketorolac Tromethamine (Ketorolac 30 Mg/Ml Vial) 15 mg IV NOW ONE Stop: 02/11/24 15:18 Last Admin: 02/11/24 15:20 Dose: 15 mg Documented By: REID Morphine Sulfate (Morphine 4 Mg/Ml Inj) 4 mg IV NOW ONE Stop: 02/11/24 18:26 Last Admin: 02/11/24 18:32 Dose: 4 mg Documented By: REID Non-Formulary Medication (Simvastatin) 20 mg PO HS ASHOK Ondansetron HCl (Ondansetron 4 Mg/2 Ml Inj) 4 mg IV NOW ONE Stop: 02/11/24 15:17 Vital Signs Vital signs: Vital Signs - 8 hr 02/11/24 16:00 02/11/24 16:01 02/11/24 16:01 Pulse Rate 84 86 Respiratory Rate Blood Pressure 160/74 H Pulse Oximetry 99 99 02/11/24 16:30 02/11/24 16:31 02/11/24 16:31 Pulse Rate 87 87 Respiratory Rate Blood Pressure 149/76 H Pulse Oximetry 98 98 02/11/24 17:00 02/11/24 17:00 02/11/24 17:15 Pulse Rate 80 Respiratory Rate Blood Pressure 138/74 Pulse Oximetry 97 98 02/11/24 17:31 02/11/24 17:50 02/11/24 18:00 Pulse Rate 91 H Respiratory Rate Blood Pressure 152/76 H 165/96 H Pulse Oximetry 98 02/11/24 18:00 02/11/24 18:30 02/11/24 18:31 Pulse Rate 97 H 97 H 95 H Respiratory Rate Blood Pressure Pulse Oximetry 100 98 98 02/11/24 18:31 02/11/24 19:00 02/11/24 19:30 Pulse Rate 88 94 H Respiratory Rate 12 20 Blood Pressure 186/79 H Pulse Oximetry 100 97 MDM - Abdominal Pain Differential Diagnosis Differential diagnosis: Likely abdominal pain, acute appendicitis and calculus of kidney Lab Data 02/11/24 13:20 02/11/24 13:20 Labs: Lab Results 02/11/24 02/11/24 02/11/24 Range/Units 13:20 15:13 16:35 WBC 17.3 H (4.5-11.0) X10^3/uL RBC 4.86 (4.5-5.9) X10^6/uL Hgb 16.5 (13.5-17.5) g/dL Hct 48.1 (41-53) % MCV 99.1 (80-100) fL MCH 33.9 (26-34) PG MCHC 34.2 (30-36) % RDW 13.4 (11.6-14.8) % Plt Count 211 (150-400) X10^3/uL Neut % (Auto) 77.6 H (50-75) % Lymph % (Auto) 14.9 L (25-40) % [place] % (Auto) 7.0 (3-14) % Eos % (Auto) 0.1 L (2-4) % Baso % (Auto) 0.4 (0-2) % Neut # (Auto) 61466 H (2409-9026) /uL Lymph # (Auto) 2600 (7568-9979) /uL [place] # (Auto) 1200 H (0-900) /uL Eos # (Auto) 0 (0-450) /uL Baso # (Auto) 100 (0-100) /uL PT 20.1 H (9.4-12.5) SECONDS INR 1.7 H (0.9-1.3) Sodium 135 L (137-145) mmol/L Potassium 3.0 L (3.4-5.1) mmol/L Chloride 98 (98-107) mmol/L Carbon Dioxide 28 (22-32) mmol/L BUN 21 H (9-20) mg/dL Creatinine 0.68 (0.66-1.25) mg/dL Estimated GFR > 60 (>60) mL/min BUN/Creatinine Ratio 30.9 H (6-22) Glucose 151 H (80-110) mg/dL Hemoglobin A1c 7.3 H (4.0-6.0) % Lactate 3.5 H 1.5 (0.7-2.1) mmol/L Calcium 9.7 (8.4-10.2) mg/dL Total Bilirubin 2.1 H (0.2-1.3) mg/dL AST 37 (17-59) IU/L ALT 35 (<50) IU/L Alkaline Phosphatase 53 (38-126) U/L Total Protein 7.9 (6.3-8.2) g/dL Albumin 4.8 (3.5-5.0) g/dL Globulin 3.1 (1.7-4.1) g/dL Albumin/Globulin Ratio 1.5 (1.0-2.8) Lipase 88 (23-300) U/L Procalcitonin 0.04 (<0.5) ng/mL Point of care testing: Urine Dip Bedside Urine Glucose Negative Bedside Urine Bilirubin - Negative Bedside Urine Ketone - Negative Urine Specific [place] 1.010 Bedside Urine Occult Blood - Negative Bedside Urine pH 7.0 Bedside Urine Protein - Negative Bedside Urine Urobilinogen - Negative Bedside Urine Nitrite - Negative Bedside Urine Leukocytes - Negative Esterase Imaging Data CT scan - abdomen/pelvis: Radiologist's Impression: PROCEDURE: CT ABDOMEN PELVIS W CON INDICATIONS: RLQ PAIN, N/V, SEPSIS TECHNIQUE: After the administration of intravenous contrast, axial sections acquired from the lung bases to the pubic symphysis. Coronal and sagittal reformats were performed. For radiation dose reduction, the following was used: automated exposure control, adjustment of mA and/or kV according to patient size. COMPARISON: [facility], CT, ABDOMEN/PELVIS WITH CONTRAST, 02/23/2016, 13:38. FINDINGS: Image quality: Diagnostic. Lower Chest: Mild dependent atelectasis in posterior aspect of left lung base is seen. Heart size is normal, no pericardial effusion. ABDOMEN: Liver: No solid mass. Hepatic steatosis is seen. Gallbladder: A calcified stone in dependent portion of gallbladder lumen is seen. There is gallbladder wall thickening and mild edema. Biliary ducts: No biliary dilation. Pancreas: No ductal dilation. Spleen: Size is within normal limits. Adrenal Glands: No adrenal nodules. Kidneys and Ureters: No hydronephrosis. No solid mass. Small bilateral simple appearing renal cortical cysts are seen measures up to 2.1 cm in size in midpole right kidney and 2.3 cm in size in midpole left kidney. No complex renal cystic lesion which requires follow up. Stomach and Bowel: There is a small hiatal hernia. No evidence of bowel obstruction. No abnormal bowel wall thickening or mesenteric fat stranding. Normal appearing appendix is noted in right lower quadrant. Sigmoid diverticulosis is seen without sigmoid colon wall thickening or mesenteric fat stranding. Post partial sigmoidectomy changes in lower pelvis is seen. Surgical anastomosis is intact. No abscess collection. No intraperitoneal fluid. No free air. Ventral Wall: No significant ventral hernia. Abdominal Nodes: No retroperitoneal or mesenteric adenopathy by size criteria. Vessels: Aorta and inferior vena cava are normal in size. PELVIS: Pelvic Organs: Unremarkable. Bladder: No bladder wall thickening, accounting for underdistention. Pelvic Nodes: No enlarged lymph nodes. Miscellaneous: No inguinal hernias are seen. Bones: No aggressive osseous abnormality. < right hip arthroplasty is seen with significant beam hardening artifacts. No acute vertebral body compression fracture. IMPRESSION: 1. Cholelithiasis with gallbladder wall thickening and mild edema concerning for cholecystitis. No biliary ductal dilatation. 2. Small hiatal hernia. No bowel obstruction or abnormal bowel wall thickening. Sigmoid diverticulosis without evidence of acute diverticulitis. Normal appendix. No free fluid or free air. 3. Hepatic steatosis, no discrete hepatic lesion. 4. Bilateral renal cysts. No hydronephrosis or hydroureter. Dictated by: Sotero Ma M.D. on 02/11/2024 at 19:01 Approved by: Sotero Ma M.D. on 02/11/2024 at 19:06 US - abdomen: Radiologist's Impression: PROCEDURE: US ABDOMEN LIMITED INDICATIONS: ABNORMAL GB ON CT TECHNIQUE: Real-time focused scanning was performed of the abdomen, with image documentation. COMPARISON: [facility], CT, CT ABDOMEN PELVIS W CON, 02/11/2024, 18:37. FINDINGS: Liver measures 16.5 cm with steatosis. Non mobile focus of echogenicity is present within the gallbladder lumen specifically the neck measuring 1.3 cm. Wall is thickened measuring 5-6 mm. Minimal pericholecystic fluid is present. Sonographic Vaughn sign is present. Common bile duct measures 6.5 mm. Visualized portions of the pancreas are unremarkable. IMPRESSION: Cholelithiasis with imaging appearance of cholecystitis. Dictated by: Margaux Rea M.D. on 02/11/2024 at 20:45 Approved by: Margaux Rea M.D. on 02/11/2024 at 20:46 MDM Narrative Medical decision making narrative: Nontoxic patient presenting for 1 day of abdominal pain with nausea and vomiting. Abdomen is soft but he was tender in the right side of his abdomen. Vital signs stable. Pain, nausea medications, IV fluids ordered. Laboratory work significant for leukocytosis 70.3, hemoglobin 16.5, platelets 211, INR 1.7, potassium 3.0, sodium 135, creatinine 0.68, initial lactic acid 3.5 with repeat 1.5. T bili 2.1, other liver enzymes within normal limits. CT of the abdomen and pelvis reviewed, no acute findings in the right lower quadrant of the abdomen, however it was noted that he has a stone present with thickening concerning for cholecystitis. Ultrasound of the abdomen and pelvis ordered for assessment. Ultrasound of the abdomen shows findings consistent with acute cholecystitis. Patient reports significant adverse reaction to penicillins and so coverage with Rocephin and Flagyl initiated. Call placed to Dr. Woodruff of General surgery, who requested that patient's warfarin be held tonight, that he be made NPO at midnight, and he will discuss the case with Dr. Warren for the OR tomorrow. Patient and informed of lab and imaging findings, they are in agreement with admission at this time. Discharge Plan Departure Patient Disposition: Admitted as Observation Clinical Impression: Acute cholecystitis, Subtherapeutic anticoagulation Admit Date/Time: 02/11/24 21:06 Admit Provider: Prosper Nelson
[2024-02-11] MEDS: MORPHINE 4 MG/ML INJ IV (18:32)
--- NOTE | 2024-02-11 19:16 | DI.US.S_ITS ---
PROCEDURE: US ABDOMEN LIMITED INDICATIONS: ABNORMAL GB ON CT TECHNIQUE: Real-time focused scanning was performed of the abdomen, with image documentation. COMPARISON: [facility], CT, CT ABDOMEN PELVIS W CON, 02/11/2024, 18:37. FINDINGS: Liver measures 16.5 cm with steatosis. Non mobile focus of echogenicity is present within the gallbladder lumen specifically the neck measuring 1.3 cm. Wall is thickened measuring 5-6 mm. Minimal pericholecystic fluid is present. Sonographic Vaughn sign is present. Common bile duct measures 6.5 mm. Visualized portions of the pancreas are unremarkable. IMPRESSION: Cholelithiasis with imaging appearance of cholecystitis. Dictated by: Margaux Rea M.D. on 02/11/2024 at 20:45 Approved by: Margaux Rea M.D. on 02/11/2024 at 20:46
[2024-02-11] MEDS: metroNIDAZOLE 500 MG/100 ML PIGGYBACK 100 MG IV (20:53)
[2024-02-11] MEDS: cefTRIAXone 2,000 MG in SODIUM CHLORIDE 0.9% 100 ML 200 MG IV (20:53)
[2024-02-11 21:55] LABS: Hemoglobin A1C% w Est Avg Glu 7.3 % (4.0-6.0)
[2024-02-11] MEDS: POTASSIUM CHLORIDE IN WATER 10 MEQ/100 ML PIGGYBACK 100 MEQ IV ×3 (21:56→23:59)
[2024-02-11] MEDS: HYDROMORPHONE 0.5 MG INJ IV (22:01)
[2024-02-11] MEDS: ATORVASTATIN 20 MG TABLET 10 MG PO (22:25)
[2024-02-11] MEDS: SODIUM CHLORIDE 0.9% 1,000 ML 100 ML IV (22:27)
[2024-02-12] VITALS (15 sets, daily range): BP systolic 107–139; BP diastolic 66–76; PULSE 91–101; RESP 16–24; TEMP 35.9–37.3; O2SAT 92–98; BMI 27.6
[2024-02-12] MEDS: HYDROMORPHONE 0.5 MG INJ IV ×4 (00:04→12:16)
--- NOTE | 2024-02-12 00:04 | P.HP_ITS ---
History of Present Illness History of Present Illness Chief complaint: abd back pain and headache Narrative: 67 years old male with history of atrial fibrillation on Coumadin, hypertension, obstructive sleep apnea, GERD, low back pain, low back pain presented to the ER with acute abdominal pain since this afternoon. The pain was described as right upper quadrant, constant, severe, sharp, associated with vomiting, radiating to his back, relieved by pain medications. Never had this pain before. Denies any fever, shortness of breath, chest pain, palpitations but mild constipation. His last bowel movement was 6 PM and was kind of hard. Reported multiple surgeries in the past including bowel resection for diverticulitis 7 years ago, right total hip replacement, hernia repair and surgery. Laboratory shows WBC 17.3, hemoglobin 16.5, platelets 211, INR 1.7, potassium 3, sodium 135, blood sugar 151, initial lactic acid 3.5 with repeat 1.5, total bilirubin 2.1, LFTs normal. CT scan of the abdomen shows cholecystitis with thickening of gallbladder wall. General surgery was consulted for acute cholecystitis. He was given ceftriaxone 2 g IV, Flagyl 5 mg IV, Toradol, Zofran, morphine and fluid bolus. [facility] Medical History Thoracic compression fracture Lumbar spondylosis Compression fracture of T6 vertebra Thoracic back pain Low back pain Hypokalemia GERD (gastroesophageal reflux disease) Mitral valve regurgitation KADE (obstructive sleep apnea) Functional mitral regurgitation Knee pain Shoulder pain Vertigo (~1989) Diverticular disease Hypertension Atrial fibrillation Surgical History Anesthesia History of colostomy History of sigmoidoscopy History of laparoscopy History of knee surgery History of hernia surgery Shoulder pain, left History of neck surgery Family History Father Congestive heart failure Hypertension Heart disease Mother Congestive heart failure Diabetes mellitus Hypertension Heart disease Stroke Brother Hyperlipidemia Sister Hyperlipidemia Hypertension Grandfather Stroke Grandmother Heart disease Grandmother Stroke Social History household members: spouse Smoking Status: Never smoker alcohol intake: former substance use type: does not use Meds Home Medications and Allergies Home Medications Medication Instructions Recorded Confirmed Type multivitamin 1 cap PO DAILY ##0 06/05/10 02/04/24 History omega 9-fpb-dzj-fish oil 1,000 mg 1 cap PO DAILY ##0 08/04/12 02/04/24 History (120 mg-180 mg) capsule (Fish Oil) sildenafil (pulm.hypertension) 20 20 - 100 mg (1 - 5 x 20 mg) PO 08/30/20 02/04/24 Rx mg tablet DAILY PRN sexual activity #30 tabs hydrochlorothiazide 50 mg tablet 50 mg PO QDAY #30 tabs 12/04/21 02/04/24 Rx warfarin 2.5 mg tablet 2.5 mg PO .COMPLEX #14 tabs 10/21/23 02/04/24 Rx warfarin 2.5 mg tablet 2.5 mg PO .COMPLEX #180 tabs 10/21/23 02/04/24 Rx simvastatin 20 mg tablet 20 mg PO HS #90 tabs 11/02/23 02/04/24 Rx atenolol 50 mg tablet 50 mg PO DAILY 11/10/23 02/04/24 History hydrocodone 5 mg-acetaminophen 325 1 tab PO Q6H PRN pain #20 tabs 01/12/24 02/04/24 Rx mg tablet calcitonin (salmon) 200 1 spray intranasal (ALT) DAILY 01/19/24 02/04/24 Rx unit/actuation nasal spray vert fx 3 months #3.7 mL lidocaine 5 % topical patch 1 patch topical DAILY Vertebral 01/19/24 02/04/24 Rx compression fracture #30 ea pregabalin 50 mg capsule (Lyrica) 50 mg PO TID #90 caps 01/19/24 02/04/24 Rx Allergies Allergy/AdvReac Type Severity Reaction Status Date / Time amoxicillin AdvReac Severe Septic Verified 02/04/24 16:35 Encephalitis tramadol [TRAMADOL] AdvReac Severe Septic Verified 02/04/24 16:35 encephalitis Review of Systems Review of Systems ROS: Yes All systems reviewed with the patient and are negative except as otherwise documented Constitutional Constitutional: Reports as per HPI and Reports system reviewed and no additional complaints, except as documented Eyes Eyes: Reports as per HPI and Reports system reviewed and no additional complaints, except as documented ENT Ears, Nose, Mouth, and Throat: Yes as per HPI and Yes system reviewed and no additional complaints, except as documented Cardiovascular Cardiovascular: Reports system reviewed and no additional complaints, except as documented Respiratory Respiratory: Reports system reviewed and no additional complaints, except as documented Gastrointestinal Gastrointestinal: Reports system reviewed and no additional complaints, except as documented Genitourinary Genitourinary: Reports system reviewed and no additional complaints, except as documented Musculoskeletal Musculoskeletal: Reports system reviewed and no additional complaints, except as documented, Reports abnormal gait and Reports numbness Neurologic Neurologic: Reports system reviewed and no additional complaints, except as documented, Reports abnormal gait, Reports confusion and Reports numbness Psychiatric Psychiatric: Reports system reviewed and no additional complaints, except as documented and Reports confusion Exam Vital Signs (past 8 hours): - 02/11/24 16:30 02/11/24 16:31 02/11/24 16:31 Pulse Rate 87 87 Respiratory Rate Blood Pressure 149/76 H Pulse Oximetry 98 98 02/11/24 17:00 02/11/24 17:00 02/11/24 17:15 Pulse Rate 80 Respiratory Rate Blood Pressure 138/74 Pulse Oximetry 97 98 02/11/24 17:31 02/11/24 17:50 02/11/24 18:00 Pulse Rate 91 H Respiratory Rate Blood Pressure 152/76 H 165/96 H Pulse Oximetry 98 02/11/24 18:00 02/11/24 18:30 02/11/24 18:31 Pulse Rate 97 H 97 H 95 H Respiratory Rate Blood Pressure Pulse Oximetry 100 98 98 02/11/24 18:31 02/11/24 19:00 02/11/24 19:30 Pulse Rate 88 94 H Respiratory Rate 12 20 Blood Pressure 186/79 H Pulse Oximetry 100 97 Oxygen Delivery Method Room Air Const General: cooperative, comfortable and well developed Orientation: alert and oriented x3 HENMT Head: normal to inspection, normocephalic and atraumatic Face and sinus: normal facial exam Mouth: oral mucosae normal and moist mucous membranes Throat: posterior oropharynx normal Eyes General: appearance normal, both eyes and all related structures Pupils: PERRL EOM: EOM intact bilaterally Neck Neck: normal visual inspection and full ROM Chest Chest: normal inspection of the chest Resp Effort & Inspection: normal respiratory effort and able to speak in complete sentences Auscultation: clear to auscultation bilaterally Cardio Palpation: normal PMI Rate: regular rate Rhythm: regular rhythm Heart Sounds: S1 normal and S2 normal GI Inspection: normal to inspection Palpation: soft and no hepatosplenomegaly Auscultation: normal bowel sounds Skin General: no rashes or lesions noted Lesions: no lesions Rashes: no rashes Trauma: no lacerations or abrasions Neuro General: patient alert, patient awake, patient oriented x3 and no focal motor deficits Cranial Nerves: CN's II-XI intact bilaterally Cognition: normal cognition Speech: speech normal Gait: normal gait Motor: muscle tone normal throughout Sensory Exam: no sensory deficits noted Extrem General: full ROM and no calf tenderness Psych Appearance: grossly normal Mental Status: mental status grossly normal Speech and Movement: speech and movement normal Objective Labs 02/11/24 13:20 02/11/24 13:20 Labs: Laboratory Results - last 24 hr 02/11/24 02/11/24 02/11/24 13:20 15:13 16:35 WBC 17.3 H RBC 4.86 Hgb 16.5 Hct 48.1 MCV 99.1 MCH 33.9 MCHC 34.2 RDW 13.4 Plt Count 211 Neut % (Auto) 77.6 H Lymph % (Auto) 14.9 L [place] % (Auto) 7.0 Eos % (Auto) 0.1 L Baso % (Auto) 0.4 Neut # (Auto) 60700 H Lymph # (Auto) 2600 [place] # (Auto) 1200 H Eos # (Auto) 0 Baso # (Auto) 100 PT 20.1 H INR 1.7 H Sodium 135 L Potassium 3.0 L Chloride 98 Carbon Dioxide 28 BUN 21 H Creatinine 0.68 Estimated GFR > 60 BUN/Creatinine Ratio 30.9 H Glucose 151 H Hemoglobin A1c 7.3 H Lactate 3.5 H 1.5 Calcium 9.7 Total Bilirubin 2.1 H AST 37 ALT 35 Alkaline Phosphatase 53 Total Protein 7.9 Albumin 4.8 Globulin 3.1 Albumin/Globulin Ratio 1.5 Lipase 88 Procalcitonin 0.04 Assessment & Plan Assessment & Plan narrative: Acute cholecystitis -N.p.o. -Pain medications and antiemetic as needed -IV fluids -Continue ceftriaxone and Flagyl, follow-up on the blood cultures -Surgical consult for surgery evaluation -Hold warfarin -INR in the morning -hold diuretics for now Atrial fibrillation on warfarin, rate controlled. -Hold warfarin -Restart atenolol -INR daily Hypokalemia. -Replace and monitor electrolytes Elevated blood sugar without any history of diabetes. Most likely stress- induced. -Check A1c and monitor blood sugar. SSI as needed Hypertension. -Restart atenolol and monitor closely Low back pain. -Restart home pain medications Time Spent With Patient Time with patient: 50 to 69 minutes with 50% spent counseling/coordinating care Quality VTE Deep Vein Thrombosis/Pulmonary Embolism Present on Admission: No MIPS - Admit I confirm the patient?s Advance Care Plan is present, Code status is documented, Surrogate decision maker is in patient?s record [If Yes, STOP here]: Yes MIPS - Meds 'Current medications' to include all prescriptions, oczy-gev-xhmsvlz products, herbals, cannabis/cannabidiol products, and vitamin/mineral/dietary (nutritional) supplements. I have utilized all available resources to obtain, update, or review the patient?s current medications. [If Yes, STOP here]: Yes
[2024-02-12] MEDS: POTASSIUM CHLORIDE IN WATER 10 MEQ/100 ML PIGGYBACK 100 MEQ IV (01:19)
[2024-02-12] MEDS: ONDANSETRON 4 MG/2 ML INJ IV (02:46)
[2024-02-12] MEDS: metroNIDAZOLE 500 MG/100 ML PIGGYBACK 100 MG IV ×4 (03:28→21:11)
[2024-02-12 08:07] LABS: Add Manual Diff / Slide Review NO; Basophils Absolute Auto 100 /uL (0-100); Basophils Percent Auto 0.5 % (0-2); Eosinophils Absolute Auto 0 /uL (0-450); Eosinophils Percent Auto 0.1 % (2-4); Hematocrit 42.8 % (41-53); Hemoglobin 14.7 g/dL (13.5-17.5); Lymphocytes Absolute Auto 1300 /uL (1100-4500); Lymphocytes Percent Auto 7.6 % (25-40); Mean Corpuscular HGB Conc 34.4 % (30-36); Mean Corpuscular Hemoglobin 34.1 PG (26-34); Mean Corpuscular Volume 99.3 fL (80-100); Monocytes Absolute Auto 1600 /uL (0-900); Monocytes Percent Auto 9.5 % (3-14); Neutrophils Absolute Auto 13600 /uL (1500-7000); Neutrophils Percent Auto 82.3 % (50-75); Platelet Count 138 X10^3/uL (150-400); Red Blood Cell Count 4.31 X10^6/uL (4.5-5.9); Red Cell Distribution Width 13.8 % (11.6-14.8); White Blood Cell Count 16.6 X10^3/uL (4.5-11.0)
[2024-02-12 08:14] LABS: Prothrombin Time 23.2 SECONDS (9.4-12.5)
[2024-02-12 08:19] LABS: Alanine Aminotransferase 106 IU/L (<50); Albumin 3.7 g/dL (3.5-5.0); Albumin Globulin Ratio 1.5 (1.0-2.8); Alkaline Phosphatase 65 U/L (38-126); Aspartate Aminotransferase 104 IU/L (17-59); BUN Creatinine Ratio 20.8 (6-22); Bilirubin Total 3.7 mg/dL (0.2-1.3); Blood Urea Nitrogen 15 mg/dL (9-20); Calcium 8.1 mg/dL (8.4-10.2); Carbon Dioxide 29 mmol/L (22-32); Chloride 103 mmol/L (98-107); Estimated Glomerular Filt Rate > 60 mL/min (>60); Globulin 2.5 g/dL (1.7-4.1); Glucose 137 mg/dL (80-110); HEMOLYSIS < 15 (0-50); Magnesium 1.6 mg/dL (1.6-2.3); Potassium 3.2 mmol/L (3.4-5.1); Sodium 135 mmol/L (137-145); Total Protein 6.2 g/dL (6.3-8.2)
--- NOTE | 2024-02-12 08:32 | DI.MRI.S_ITS ---
PROCEDURE: MR ABDOMEN WO/W CON INDICATIONS: r/o choledocho TECHNIQUE: Coronal HASTE, axial 2D FLASH in- and [id number]; axial breath-hold T2 FSE with fat saturation from the hepatic dome to the iliac crests. Oblique coronal thin-slice and radial thick slab HASTE through the biliary system. Dynamic axial VIBE during administration of contrast. Post-contrast coronal VIBE or 2D FLASH with fat saturation from the hepatic dome to the iliac crests. Optional diffusion weighted imaging and ADC may be performed. COMPARISON: [facility], US, US ABDOMEN LIMITED, 02/11/2024, 19:59. [facility], CT, CT ABDOMEN PELVIS W CON, 02/11/2024, 18:37. FINDINGS: Image quality: Diagnostic. Gallbladder: Cholelithiasis. Irregular gallbladder wall thickening, pericholecystic edema most consistent with acute cholecystitis. Biliary ducts: Biliary tree is nondilated. There is a flow void (artifact) in the common bile duct. Common bile duct measures 6-7 mm, within normal limits. No choledocholithiasis. Pancreas: No ductal dilation. Trace edema along the superior margin of the pancreatic head and body. Homogeneous enhancement. OTHER: Lung bases: Dilated left atrium. Liver: Inbt-ju-gwydysuw hepatic steatosis. Spleen: Size is within normal limits. Adrenal Glands: No adrenal nodules. Kidneys and Ureters: No hydronephrosis. No solid mass. No complex renal cystic lesion which requires follow up. Stomach and Bowel: Normal colonic caliber, without significant wall thickening. Peritoneum: No abnormal intraperitoneal fluid. No free air. Ventral Wall: No hernia. Abdominal Nodes: No retroperitoneal or mesenteric adenopathy by size criteria. Vessels: Aorta and inferior vena cava are normal in size. Bones: No aggressive osseous abnormality. IMPRESSION: Cholelithiasis without choledocholithiasis. Focal edema above the pancreatic head and body, likely due to adjacent inflammatory change of the gallbladder, less likely acute interstitial pancreatitis. Dictated by: Donn Gilbert M.D. on 02/12/2024 at 11:19 Approved by: Donn Gilbert M.D. on 02/12/2024 at 11:24
[2024-02-12] MEDS: HYDROCODONE/ACET 5/325 TABLET 2 TAB PO ×4 (08:58→22:33)
[2024-02-12] MEDS: atenoloL 50 MG TABLET PO (08:58)
[2024-02-12] MEDS: SODIUM CHLORIDE 0.9% 1,000 ML 100 ML IV ×2 (09:04→21:11)
[2024-02-12] MEDS: LORazepam 2 MG/ML INJ 0.25 MG IV (10:10)
--- NOTE | 2024-02-12 10:36 | PC.NURSE ---
Day shift note: Ativan IV PRN administered for anxiety related to MRI procedure. Patient off floor to MRI at 1030.
--- NOTE | 2024-02-12 10:45 | P.CONS_ITS ---
History of Present Illness Consult details Date Patient Seen: 02/12/24 Time Patient Seen: 10:45 Chief complaint: abd back pain and headache Narrative: 68 y.o man PMH, mitral valve regurg, afib on Warfarin, HTN, KADE presented to with acute RUQ pain. On admission WBC 17, INR 1.[address] and abdominal US demonsrtate acute cholecystitis. Today TB 3.7 AST 100, ALT 100. Prior abdominal surgery colectomy for diverticulitis. Meds Home Medications and Allergies Home Medications Medication Instructions Recorded Confirmed Type multivitamin 1 cap PO DAILY ##0 06/05/10 02/12/24 History omega 0-wbw-kct-fish oil 1,000 mg 1 cap PO DAILY ##0 08/04/12 02/12/24 History (120 mg-180 mg) capsule (Fish Oil) hydrochlorothiazide 50 mg tablet 50 mg PO QDAY #30 tabs 12/04/21 02/12/24 Rx warfarin 2.5 mg tablet 2.5 mg PO .COMPLEX #14 tabs 10/21/23 02/12/24 Rx warfarin 2.5 mg tablet 2.5 mg PO .COMPLEX #180 tabs 10/21/23 02/12/24 Rx simvastatin 20 mg tablet 20 mg PO HS #90 tabs 11/02/23 02/12/24 Rx atenolol 50 mg tablet 50 mg PO DAILY 11/10/23 02/12/24 History hydrocodone 5 mg-acetaminophen 325 1 tab PO Q6H PRN pain #20 tabs 01/12/24 02/12/24 Rx mg tablet Allergies Allergy/AdvReac Type Severity Reaction Status Date / Time amoxicillin AdvReac Severe Septic Verified 02/04/24 16:35 Encephalitis tramadol [TRAMADOL] AdvReac Severe Septic Verified 02/04/24 16:35 encephalitis Exam Vital Signs (past 8 hours): - 02/12/24 02:52 02/12/24 02:52 02/12/24 03:00 Temperature Pulse Rate 97 H 96 H Respiratory Rate Blood Pressure 115/67 Pulse Oximetry 94 93 Oxygen Flow Rate 02/12/24 03:30 02/12/24 04:00 02/12/24 04:00 Temperature Pulse Rate 98 H 94 H Respiratory Rate 18 Blood Pressure 138/66 Pulse Oximetry 93 94 Oxygen Flow Rate 02/12/24 04:30 02/12/24 05:00 02/12/24 05:30 Temperature Pulse Rate 96 H 95 H 91 H Respiratory Rate 18 18 17 Blood Pressure Pulse Oximetry 93 93 93 Oxygen Flow Rate 02/12/24 06:00 02/12/24 06:30 02/12/24 07:30 Temperature 98.4 F Pulse Rate 101 H 93 H 98 H Respiratory Rate 17 19 16 Blood Pressure 139/76 Pulse Oximetry 94 93 92 Oxygen Flow Rate 0 02/12/24 08:20 Temperature 99.2 F Pulse Rate Respiratory Rate Blood Pressure Pulse Oximetry Oxygen Flow Rate Oxygen Delivery Method Room Air Oxygen Flow Rate 0 Narrative Exam Narrative: Pt not in room currently Will re evaluate later. Objective Labs 02/12/24 07:55 02/12/24 07:55 Labs: Laboratory Results - last 24 hr 02/11/24 02/11/24 02/11/24 13:20 15:13 16:35 WBC 17.3 H RBC 4.86 Hgb 16.5 Hct 48.1 MCV 99.1 MCH 33.9 MCHC 34.2 RDW 13.4 Plt Count 211 Neut % (Auto) 77.6 H Lymph % (Auto) 14.9 L [place] % (Auto) 7.0 Eos % (Auto) 0.1 L Baso % (Auto) 0.4 Neut # (Auto) 14858 H Lymph # (Auto) 2600 [place] # (Auto) 1200 H Eos # (Auto) 0 Baso # (Auto) 100 PT 20.1 H INR 1.7 H Sodium 135 L Potassium 3.0 L Chloride 98 Carbon Dioxide 28 BUN 21 H Creatinine 0.68 Estimated GFR > 60 BUN/Creatinine Ratio 30.9 H Glucose 151 H Hemoglobin A1c 7.3 H Lactate 3.5 H 1.5 Calcium 9.7 Magnesium Total Bilirubin 2.1 H AST 37 ALT 35 Alkaline Phosphatase 53 Total Protein 7.9 Albumin 4.8 Globulin 3.1 Albumin/Globulin Ratio 1.5 Lipase 88 Procalcitonin 0.04 02/12/24 07:55 WBC 16.6 H RBC 4.31 L Hgb 14.7 Hct 42.8 MCV 99.3 MCH 34.1 H MCHC 34.4 RDW 13.8 Plt Count 138 L Neut % (Auto) 82.3 H Lymph % (Auto) 7.6 L [place] % (Auto) 9.5 Eos % (Auto) 0.1 L Baso % (Auto) 0.5 Neut # (Auto) 71862 H Lymph # (Auto) 1300 [place] # (Auto) 1600 H Eos # (Auto) 0 Baso # (Auto) 100 PT 23.2 H INR 2.0 H Sodium 135 L Potassium 3.2 L Chloride 103 Carbon Dioxide 29 BUN 15 Creatinine 0.72 Estimated GFR > 60 BUN/Creatinine Ratio 20.8 Glucose 137 H Hemoglobin A1c Lactate Calcium 8.1 L Magnesium 1.6 Total Bilirubin 3.7 H AST 104 H ALT 106 H Alkaline Phosphatase 65 Total Protein 6.2 L Albumin 3.7 Globulin 2.5 Albumin/Globulin Ratio 1.5 Lipase Procalcitonin PFSH Medical History Thoracic compression fracture Lumbar spondylosis Compression fracture of T6 vertebra Thoracic back pain Low back pain Hypokalemia GERD (gastroesophageal reflux disease) Mitral valve regurgitation KADE (obstructive sleep apnea) Functional mitral regurgitation Knee pain Shoulder pain Vertigo (~1989) Diverticular disease Hypertension Atrial fibrillation Surgical History Anesthesia History of colostomy History of sigmoidoscopy History of laparoscopy History of knee surgery History of hernia surgery Shoulder pain, left History of neck surgery Family History Father Congestive heart failure Hypertension Heart disease Mother Congestive heart failure Diabetes mellitus Hypertension Heart disease Stroke Brother Hyperlipidemia Sister Hyperlipidemia Hypertension Grandfather Stroke Grandmother Heart disease Grandmother Stroke Social History household members: spouse Tobacco & Substance Use Smoking Status: Never smoker alcohol intake: former substance use type: does not use Assessment & Plan Assessment and plan (1) Acute cholecystitis: Status: Acute Assessment & Plan narrative: 68M PMH afib on Warfarin, mitral regurg, KADE, with symptoms and radiographic signs of acute cholecystitis. TB 3.7 today from 2.0 at admission needs MRCP today for rule out choledocholithiasis. Dependent on result ERCP vs lap cholecystectomy. -NPO -IV abx -No need for INR reversal at this time
[2024-02-12] MEDS: POTASSIUM CHLORIDE 20 MEQ TAB 40 MEQ PO ×2 (11:16→17:35)
[2024-02-12] MEDS: MAGNESIUM CHLORIDE 64 MG TABLET 128 MG PO (11:16)
[2024-02-12 11:58] LABS: Lipase 90 U/L (23-300)
--- NOTE | 2024-02-12 14:00 | P.PN_ITS ---
Subjective Subjective Interval history: Patient still having quite a bit of RUQ pain. Awaiting lap tre but surgery wants MRCP first to rule out choledocho. Exam Vital Signs (past 8 hours): - 02/12/24 06:30 02/12/24 07:30 02/12/24 08:20 Temperature 98.4 F 99.2 F Pulse Rate 93 H 98 H Respiratory Rate 19 16 Blood Pressure 139/76 Pulse Oximetry 93 92 Oxygen Flow Rate 0 Oxygen Delivery Method Room Air Oxygen Flow Rate 0 Narrative Exam Narrative: GEN: appears uncomfortable HEENT: moist mucous membranes, PERRL NECK: trachea midline, no JVD CV: regular rate and rhythm, no murmurs PULM: clear bilaterally ABD: soft, RUQ pain to palpation, nondistended, no organomegaly EXT: warm and well perfused with no edema NEURO: awake, alert, oriented, no focal deficits Objective Labs 02/12/24 07:55 02/12/24 07:55 Labs: Laboratory Results - last 24 hr 02/11/24 02/11/24 02/11/24 13:20 15:13 16:35 WBC RBC Hgb Hct MCV MCH MCHC RDW Plt Count Neut % (Auto) Lymph % (Auto) [place] % (Auto) Eos % (Auto) Baso % (Auto) Neut # (Auto) Lymph # (Auto) [place] # (Auto) Eos # (Auto) Baso # (Auto) PT INR Sodium 135 L Potassium 3.0 L Chloride 98 Carbon Dioxide 28 BUN 21 H Creatinine 0.68 Estimated GFR > 60 BUN/Creatinine Ratio 30.9 H Glucose 151 H Hemoglobin A1c 7.3 H Lactate 3.5 H 1.5 Calcium 9.7 Magnesium Total Bilirubin 2.1 H AST 37 ALT 35 Alkaline Phosphatase 53 Total Protein 7.9 Albumin 4.8 Globulin 3.1 Albumin/Globulin Ratio 1.5 Lipase 88 Procalcitonin 0.04 Blood Type 02/12/24 02/12/24 07:55 09:35 WBC 16.6 H RBC 4.31 L Hgb 14.7 Hct 42.8 MCV 99.3 MCH 34.1 H MCHC 34.4 RDW 13.8 Plt Count 138 L Neut % (Auto) 82.3 H Lymph % (Auto) 7.6 L [place] % (Auto) 9.5 Eos % (Auto) 0.1 L Baso % (Auto) 0.5 Neut # (Auto) 77586 H Lymph # (Auto) 1300 [place] # (Auto) 1600 H Eos # (Auto) 0 Baso # (Auto) 100 PT 23.2 H INR 2.0 H Sodium 135 L Potassium 3.2 L Chloride 103 Carbon Dioxide 29 BUN 15 Creatinine 0.72 Estimated GFR > 60 BUN/Creatinine Ratio 20.8 Glucose 137 H Hemoglobin A1c Lactate Calcium 8.1 L Magnesium 1.6 Total Bilirubin 3.7 H AST 104 H ALT 106 H Alkaline Phosphatase 65 Total Protein 6.2 L Albumin 3.7 Globulin 2.5 Albumin/Globulin Ratio 1.5 Lipase 90 Procalcitonin Blood Type A Positive [facility] Medical History Thoracic compression fracture Lumbar spondylosis Compression fracture of T6 vertebra Thoracic back pain Low back pain Hypokalemia GERD (gastroesophageal reflux disease) Mitral valve regurgitation KADE (obstructive sleep apnea) Functional mitral regurgitation Knee pain Shoulder pain Vertigo (~1989) Diverticular disease Hypertension Atrial fibrillation Surgical History Anesthesia History of colostomy History of sigmoidoscopy History of laparoscopy History of knee surgery History of hernia surgery Shoulder pain, left History of neck surgery Family History Father Congestive heart failure Hypertension Heart disease Mother Congestive heart failure Diabetes mellitus Hypertension Heart disease Stroke Brother Hyperlipidemia Sister Hyperlipidemia Hypertension Grandfather Stroke Grandmother Heart disease Grandmother Stroke Social History household members: spouse Smoking Status: Never smoker alcohol intake: former substance use type: does not use Assessment & Plan Assessment & Plan narrative: Acute cholecystitis -CT abd with gallbladder wall thickening and mild edema concerning for acute tre, patient with severe RUQ pain -MRCP negative for choledocho -clears, then NPO midnight for lap tre -Pain medications and antiemetic as needed -IV fluids -Continue ceftriaxone and Flagyl, follow-up on the blood cultures -Surgical consult for surgery evaluation -Holding warfarin -INR 2.0, will give FFP prior to surgery likely -hold diuretics for now Atrial fibrillation on warfarin, rate controlled. -Hold warfarin -Restart atenolol -INR daily Hypokalemia. -Replace and monitor electrolytes Elevated blood sugar without any history of diabetes. -A1c 7.3% indicating new-onset diabetes -will start patient on metformin on discharge -outpatient PCP follow-up for management Hypertension. -Restart atenolol and monitor closely Low back pain. -Restart home pain medications Dispo: 1-2 days pending sandeep [place]. Time Spent With Patient Time with patient: 50 to 69 minutes with 50% spent counseling/coordinating care Quality VTE Deep Vein Thrombosis/Pulmonary Embolism Present on Admission: No
[2024-02-12] MEDS: HYDROMORPHONE 1 MG INJ IV ×4 (16:22→23:57)
[2024-02-12] MEDS: cefTRIAXone 2,000 MG in SODIUM CHLORIDE 0.9% 100 ML 200 MG IV (20:22)
[2024-02-13] MEDS: metroNIDAZOLE 500 MG/100 ML PIGGYBACK 100 MG IV (03:15)
[2024-02-13 05:54] LABS: Add Manual Diff / Slide Review NO; Basophils Absolute Auto 100 /uL (0-100); Basophils Percent Auto 0.6 % (0-2); Eosinophils Absolute Auto 0 /uL (0-450); Eosinophils Percent Auto 0.2 % (2-4); Hemoglobin 14.3 g/dL (13.5-17.5); Lymphocytes Absolute Auto 1200 /uL (1100-4500); Lymphocytes Percent Auto 7.5 % (25-40); Mean Corpuscular HGB Conc 34.1 % (30-36); Mean Corpuscular Hemoglobin 34.3 PG (26-34); Mean Corpuscular Volume 100.6 fL (80-100); Monocytes Absolute Auto 1600 /uL (0-900); Monocytes Percent Auto 9.5 % (3-14); Neutrophils Absolute Auto 13500 /uL (1500-7000); Neutrophils Percent Auto 82.2 % (50-75); Platelet Count 127 X10^3/uL (150-400); Red Blood Cell Count 4.17 X10^6/uL (4.5-5.9); Red Cell Distribution Width 14.1 % (11.6-14.8); White Blood Cell Count 16.4 X10^3/uL (4.5-11.0)
[2024-02-13 06:00] VITALS: BP 130/68; PULSE 90; RESP 17; TEMP 37; O2SAT 96
[2024-02-13 06:05] LABS: Prothrombin Time 34.3 SECONDS (9.4-12.5)
[2024-02-13 06:17] LABS: Magnesium 1.7 mg/dL (1.6-2.3)
[2024-02-13 06:18] LABS: Alanine Aminotransferase 113 IU/L (<50); Albumin 3.7 g/dL (3.5-5.0); Albumin Globulin Ratio 1.4 (1.0-2.8); Alkaline Phosphatase 83 U/L (38-126); Aspartate Aminotransferase 81 IU/L (17-59); BUN Creatinine Ratio 18.9 (6-22); Bilirubin Total 4.5 mg/dL (0.2-1.3); Blood Urea Nitrogen 14 mg/dL (9-20); Calcium 8.2 mg/dL (8.4-10.2); Carbon Dioxide 24 mmol/L (22-32); Chloride 106 mmol/L (98-107); Estimated Glomerular Filt Rate > 60 mL/min (>60); Globulin 2.7 g/dL (1.7-4.1); Glucose 113 mg/dL (80-110); HEMOLYSIS < 15 (0-50); Potassium 3.5 mmol/L (3.4-5.1); Sodium 137 mmol/L (137-145); Total Protein 6.4 g/dL (6.3-8.2)
--- NOTE | 2024-02-13 06:34 | PC.NURSE ---
INR 3.[address] Nelson and ordered to give 1 unit of FFP today and recheck INR. Educated patient and went over blood consent, but the patient wants to wait before signing the consent and speak with the day hospitalist.
[2024-02-13 08:00] VITALS: BP 146/80; PULSE 99; RESP 16; TEMP 36.2; O2SAT 99
[2024-02-13] MEDS: PHYTONADIONE (VIT K1) 10 MG in SODIUM CHLORIDE 0.9% 100 ML 202 MG IV (08:20)
[2024-02-13] MEDS: HYDROMORPHONE 1 MG INJ IV ×7 (08:23→23:23)
[2024-02-13] MEDS: POTASSIUM CHLORIDE IN WATER 10 MEQ/100 ML PIGGYBACK 100 MEQ IV ×2 (08:23→09:52)
[2024-02-13] MEDS: LIDOCAINE 5% PATCH 1 EACH TOP (08:26)
[2024-02-13] MEDS: atenoloL 50 MG TABLET PO (08:26)
[2024-02-13] MEDS: ERTAPENEM 1 GM in SODIUM CHLORIDE 0.9% 100 ML IV (09:52)
[2024-02-13] MEDS: MAGNESIUM SULFATE 2 GM/50 ML PIGGYBACK IV (10:57)
--- NOTE | 2024-02-13 11:06 | PM.PN.1 ---
Subjective Subjective Date Patient Seen: 02/13/24 Time Patient Seen: 11:08 Interval history: Cory was scheduled for cholecystectomy today however his INR came back at 3 this morning. His last dose of Coumadin was on Thursday. He has also had increase in his liver enzymes. Exam Vital Signs (past 8 hours): - 02/13/24 06:00 02/13/24 08:00 Temperature 98.6 F 97.1 F L Pulse Rate 90 99 H Respiratory Rate 17 16 Blood Pressure 130/68 146/80 H Pulse Oximetry 96 99 Oxygen Flow Rate 0 0 Oxygen Delivery Method Room Air Oxygen Flow Rate 0 Const General: No acute distress Resp Effort & Inspection: normal respiratory effort Objective Labs 02/13/24 05:36 02/13/24 05:36 Labs: Laboratory Results - last 24 hr 02/12/24 02/13/24 07:55 05:36 WBC 16.4 H RBC 4.17 L Hgb 14.3 Hct 42.0 MCV 100.6 H MCH 34.3 H MCHC 34.1 RDW 14.1 Plt Count 127 L Neut % (Auto) 82.2 H Lymph % (Auto) 7.5 L [place] % (Auto) 9.5 Eos % (Auto) 0.2 L Baso % (Auto) 0.6 Neut # (Auto) 84724 H Lymph # (Auto) 1200 [place] # (Auto) 1600 H Eos # (Auto) 0 Baso # (Auto) 100 PT 34.3 H D INR 3.0 H Sodium 137 Potassium 3.5 Chloride 106 Carbon Dioxide 24 BUN 14 Creatinine 0.74 Estimated GFR > 60 BUN/Creatinine Ratio 18.9 Glucose 113 H Calcium 8.2 L Magnesium 1.7 Total Bilirubin 4.5 H AST 81 H ALT 113 H Alkaline Phosphatase 83 Total Protein 6.4 Albumin 3.7 Globulin 2.7 Albumin/Globulin Ratio 1.4 Lipase 90 PFSH Medical History Thoracic compression fracture Lumbar spondylosis Compression fracture of T6 vertebra Thoracic back pain Low back pain Hypokalemia GERD (gastroesophageal reflux disease) Mitral valve regurgitation KADE (obstructive sleep apnea) Functional mitral regurgitation Knee pain Shoulder pain Vertigo (~1989) Diverticular disease Hypertension Atrial fibrillation Surgical History Anesthesia History of colostomy History of sigmoidoscopy History of laparoscopy History of knee surgery History of hernia surgery Shoulder pain, left History of neck surgery Family History Father Congestive heart failure Hypertension Heart disease Mother Congestive heart failure Diabetes mellitus Hypertension Heart disease Stroke Brother Hyperlipidemia Sister Hyperlipidemia Hypertension Grandfather Stroke Grandmother Heart disease Grandmother Stroke Social History household members: spouse Smoking Status: Never smoker alcohol intake: former substance use type: does not use Assessment & Plan Assessment and plan (1) Acute cholecystitis: Status: Acute Plan Plan to administer vitamin K today and recheck INR in the morning. If his INR is still elevated we would then proceed with FFP. He is on the schedule for a laparoscopic cholecystectomy with intraoperative cholangiogram tomorrow morning. Quality VTE Deep Vein Thrombosis/Pulmonary Embolism Present on Admission: No
[2024-02-13] MEDS: SODIUM CHLORIDE 0.9% 1,000 ML 100 ML IV ×2 (13:12→23:23)
[2024-02-13] MEDS: OXYCODONE IR 5 MG TABLET PO ×3 (13:13→22:01)
--- NOTE | 2024-02-13 14:30 | P.PN_ITS ---
Subjective Subjective Interval history: Patient's INR jocelin to 3 this AM, likely due to flagyl. Given Vit K 10mg and changed flagyl to ertapenem given his PCN allergy. Surgery rescheduled for tomorrow. Patient asking to switch hydrocodone to oxycodone. Exam Vital Signs (past 8 hours): - 02/13/24 08:00 Temperature 97.1 F L Pulse Rate 99 H Respiratory Rate 16 Blood Pressure 146/80 H Pulse Oximetry 99 Oxygen Flow Rate 0 Oxygen Delivery Method Room Air Oxygen Flow Rate 0 Narrative Exam Narrative: GEN: appears uncomfortable HEENT: moist mucous membranes, PERRL NECK: trachea midline, no JVD CV: regular rate and rhythm, no murmurs PULM: clear bilaterally ABD: soft, RUQ pain to palpation, nondistended, no organomegaly EXT: warm and well perfused with no edema NEURO: awake, alert, oriented, no focal deficits Objective Labs 02/13/24 05:36 02/13/24 05:36 Labs: Laboratory Results - last 24 hr 02/13/24 05:36 WBC 16.4 H RBC 4.17 L Hgb 14.3 Hct 42.0 MCV 100.6 H MCH 34.3 H MCHC 34.1 RDW 14.1 Plt Count 127 L Neut % (Auto) 82.2 H Lymph % (Auto) 7.5 L [place] % (Auto) 9.5 Eos % (Auto) 0.2 L Baso % (Auto) 0.6 Neut # (Auto) 89360 H Lymph # (Auto) 1200 [place] # (Auto) 1600 H Eos # (Auto) 0 Baso # (Auto) 100 PT 34.3 H D INR 3.0 H Sodium 137 Potassium 3.5 Chloride 106 Carbon Dioxide 24 BUN 14 Creatinine 0.74 Estimated GFR > 60 BUN/Creatinine Ratio 18.9 Glucose 113 H Calcium 8.2 L Magnesium 1.7 Total Bilirubin 4.5 H AST 81 H ALT 113 H Alkaline Phosphatase 83 Total Protein 6.4 Albumin 3.7 Globulin 2.7 Albumin/Globulin Ratio 1.4 PFSH Medical History Thoracic compression fracture Lumbar spondylosis Compression fracture of T6 vertebra Thoracic back pain Low back pain Hypokalemia GERD (gastroesophageal reflux disease) Mitral valve regurgitation KADE (obstructive sleep apnea) Functional mitral regurgitation Knee pain Shoulder pain Vertigo (~1989) Diverticular disease Hypertension Atrial fibrillation Surgical History Anesthesia History of colostomy History of sigmoidoscopy History of laparoscopy History of knee surgery History of hernia surgery Shoulder pain, left History of neck surgery Family History Father Congestive heart failure Hypertension Heart disease Mother Congestive heart failure Diabetes mellitus Hypertension Heart disease Stroke Brother Hyperlipidemia Sister Hyperlipidemia Hypertension Grandfather Stroke Grandmother Heart disease Grandmother Stroke Social History household members: spouse Smoking Status: Never smoker alcohol intake: former substance use type: does not use Assessment & Plan Assessment & Plan narrative: Acute cholecystitis -CT abd with gallbladder wall thickening and mild edema concerning for acute tre, patient with severe RUQ pain -MRCP negative for choledocho -clears, then NPO midnight 5/ for lap tre -Pain medications and antiemetic as needed, patient wants oxycodone and didn't tolerate hydrocodone well -IV fluids -changed rocephin/flagyl to ertapenem due to flagyl's effect on INR -Surgical consult for surgery evaluation -Holding warfarin -INR 3, give 10mg Vit K and FFP before surgery if INR still elevated -hold diuretics for now Atrial fibrillation on warfarin, rate controlled. -Hold warfarin -Restart atenolol -INR daily Hypokalemia. -Replace and monitor electrolytes Elevated blood sugar without any history of diabetes. -A1c 7.3% indicating new-onset diabetes -will start patient on metformin on discharge -outpatient PCP follow-up for management Hypertension. -Restart atenolol and monitor closely Low back pain. -Restart home pain medications Dispo: 1-2 days pending lap tre. Time Spent With Patient Time with patient: 50 to 69 minutes with 50% spent counseling/coordinating care Quality VTE Deep Vein Thrombosis/Pulmonary Embolism Present on Admission: No
[2024-02-13 16:00] VITALS: BP 137/77; PULSE 99; RESP 16; TEMP 37.6; O2SAT 99
[2024-02-13] MEDS: ONDANSETRON 4 MG/2 ML INJ IV (16:22)
[2024-02-13 18:00] VITALS: BP 153/84; PULSE 96; RESP 18; TEMP 36.9; O2SAT 94
[2024-02-13 21:54] VITALS: BP 143/77; PULSE 105; RESP 17; TEMP 36.4; O2SAT 94
[2024-02-14] VITALS (18 sets, daily range): BP systolic 96–152; BP diastolic 51–94; PULSE 84–110; RESP 11–20; TEMP 36–37; O2SAT 91–97; BMI 27.6
--- NOTE | 2024-02-14 | PATH_ITS ---
[facility] Accession Number: [id number] . 01 Material submitted: . gallbladder - GALLBLADDER . 01 Diagnosis: Gallbladder, cholecystectomy: Acute and chronic cholecystitis. Negative for malignancy. TXN 02/19/2024 1236 Local . 01 Electronically signed: . Tawfeq MD Karon, Pathologist NPI- [id number] . 01 Gross description: . Received in formalin with two identifiers and gallbladder, is a disrupted gallbladder, 8.6 x 4.9 x 3.1 cm, with congested serosa and adherent material consistent with exudate. The cystic duct margin is inked blue with no pericystic lymph node identified. The lumen contains minimal bile and akers to brown semisolid material. No calculi are identified in the lumen or the container. The mucosa is brown and velvety with no polyps or lesions identified. The ferguson average 0.4 cm thick. Rep sections to include the cystic duct margin and full thickness sections are submitted in A1. ([id number]) /MRV 02/16/2024 1407 Local . 01 Pathologist provided ICD-10: K81.0 . 01 CPT . 524647 Performed at: [address] [facility], [place], [place] [id number] MD Reinaldo Watson MD Phone: [phone]
[2024-02-14] MEDS: OXYCODONE IR 5 MG TABLET PO ×4 (02:02→19:37)
[2024-02-14 06:06] LABS: Add Manual Diff / Slide Review NO; Basophils Absolute Auto 0 /uL (0-100); Basophils Percent Auto 0.1 % (0-2); Eosinophils Absolute Auto 100 /uL (0-450); Eosinophils Percent Auto 0.6 % (2-4); Hematocrit 38.2 % (41-53); Hemoglobin 13.1 g/dL (13.5-17.5); Lymphocytes Absolute Auto 1200 /uL (1100-4500); Lymphocytes Percent Auto 11.9 % (25-40); Mean Corpuscular HGB Conc 34.4 % (30-36); Mean Corpuscular Hemoglobin 34.7 PG (26-34); Mean Corpuscular Volume 100.7 fL (80-100); Monocytes Absolute Auto 1300 /uL (0-900); Monocytes Percent Auto 12.7 % (3-14); Neutrophils Absolute Auto 7700 /uL (1500-7000); Neutrophils Percent Auto 74.7 % (50-75); Platelet Count 135 X10^3/uL (150-400); Red Blood Cell Count 3.79 X10^6/uL (4.5-5.9); Red Cell Distribution Width 13.8 % (11.6-14.8); White Blood Cell Count 10.2 X10^3/uL (4.5-11.0)
[2024-02-14 06:12] LABS: INR 1.6 (0.9-1.3); Prothrombin Time 18.7 SECONDS (9.4-12.5)
[2024-02-14 06:20] LABS: Alanine Aminotransferase 72 IU/L (<50); Albumin 3.3 g/dL (3.5-5.0); Albumin Globulin Ratio 1.2 (1.0-2.8); Alkaline Phosphatase 91 U/L (38-126); Aspartate Aminotransferase 45 IU/L (17-59); BUN Creatinine Ratio 15.6 (6-22); Bilirubin Total 2.7 mg/dL (0.2-1.3); Blood Urea Nitrogen 12 mg/dL (9-20); Calcium 8.1 mg/dL (8.4-10.2); Carbon Dioxide 24 mmol/L (22-32); Chloride 105 mmol/L (98-107); Estimated Glomerular Filt Rate > 60 mL/min (>60); Globulin 2.8 g/dL (1.7-4.1); Glucose 125 mg/dL (80-110); HEMOLYSIS < 15 (0-50); Potassium 3.3 mmol/L (3.4-5.1); Sodium 135 mmol/L (137-145); Total Protein 6.1 g/dL (6.3-8.2)
[2024-02-14] MEDS: atenoloL 50 MG TABLET PO (08:28)
--- NOTE | 2024-02-14 08:49 | P.PN_ITS ---
Subjective Subjective Date Patient Seen: 02/14/24 Time Patient Seen: 08:50 Interval history: INR is 1.6 today following vitamin K yesterday. WBC and LFTS are downtrending. He reports that the pain is now radiating to his lower abdomen. Exam Vital Signs (past 8 hours): - 02/14/24 05:39 02/14/24 08:47 Temperature 96.8 F L 97.5 F L Pulse Rate 102 H 110 H Respiratory Rate 17 20 Blood Pressure 115/58 L 152/76 H Pulse Oximetry 94 97 Oxygen Delivery Method Room Air Oxygen Flow Rate 0 Oxygen Delivery Method Room Air Oxygen Flow Rate 0 Const General: No acute distress Resp Effort & Inspection: normal respiratory effort Objective Labs 02/14/24 05:26 02/14/24 05:26 Labs: Laboratory Results - last 24 hr 02/14/24 05:26 WBC 10.2 RBC 3.79 L Hgb 13.1 L Hct 38.2 L MCV 100.7 H MCH 34.7 H MCHC 34.4 RDW 13.8 Plt Count 135 L Neut % (Auto) 74.7 Lymph % (Auto) 11.9 L [place] % (Auto) 12.7 Eos % (Auto) 0.6 L Baso % (Auto) 0.1 Neut # (Auto) 7700 H Lymph # (Auto) 1200 [place] # (Auto) 1300 H Eos # (Auto) 100 Baso # (Auto) 0 PT 18.7 H D INR 1.6 H Sodium 135 L Potassium 3.3 L Chloride 105 Carbon Dioxide 24 BUN 12 Creatinine 0.77 Estimated GFR > 60 BUN/Creatinine Ratio 15.6 Glucose 125 H Calcium 8.1 L Total Bilirubin 2.7 H AST 45 ALT 72 H Alkaline Phosphatase 91 Total Protein 6.1 L Albumin 3.3 L Globulin 2.8 Albumin/Globulin Ratio 1.2 PFSH Medical History Thoracic compression fracture Lumbar spondylosis Compression fracture of T6 vertebra Thoracic back pain Low back pain Hypokalemia GERD (gastroesophageal reflux disease) Mitral valve regurgitation KADE (obstructive sleep apnea) Functional mitral regurgitation Knee pain Shoulder pain Vertigo (~1989) Diverticular disease Hypertension Atrial fibrillation Surgical History Anesthesia History of colostomy History of sigmoidoscopy History of laparoscopy History of knee surgery History of hernia surgery Shoulder pain, left History of neck surgery Family History Father Congestive heart failure Hypertension Heart disease Mother Congestive heart failure Diabetes mellitus Hypertension Heart disease Stroke Brother Hyperlipidemia Sister Hyperlipidemia Hypertension Grandfather Stroke Grandmother Heart disease Grandmother Stroke Social History household members: spouse Smoking Status: Never smoker alcohol intake: former substance use type: does not use Assessment & Plan Assessment and plan (1) Acute cholecystitis: Status: Acute Plan We reviewed the risks and benefits of laparoscopic cholecystectomy with intraoperative cholangiogram and he would like to proceed. Quality VTE Deep Vein Thrombosis/Pulmonary Embolism Present on Admission: No
[2024-02-14] MEDS: LACTATED RINGERS 1,000 ML 42 ML IV ×2 (08:50→11:42)
--- NOTE | 2024-02-14 09:00 | DI.RAD.S_ITS ---
PROCEDURE: XR CHOLANGIOGRAM OPERATIVE INDICATIONS: lap choley COMPARISON: [facility], MR, MR ABDOMEN WO/W CON, 02/12/2024, 10:08. FINDINGS: Biliary ducts: The surgeon injected contrast into the biliary ducts after cannulation of the cystic duct stump. Visualized intra- and extrahepatic bile ducts are normal in caliber, without strictures. No intraluminal filling defects to suggest retained ductal stones or sludge. No evidence for iatrogenic ductal injury. Duodenum: Contrast flows promptly through the sphincter of Oddi into the duodenum, which appears normal in caliber. IMPRESSION: No retained choledocholith is seen. Approved by: Cecilio Narayan M.D. on 02/14/2024 at 10:35
[2024-02-14] MEDS: ERTAPENEM 1 GM in SODIUM CHLORIDE 0.9% 100 ML IV (09:16)
[2024-02-14] MEDS: BUPIVACAINE 0.5% (PF) 30 ML, EPINEPHrine 0.15 MG INJ (09:30)
--- NOTE | 2024-02-14 09:58 | SUR.OPER ---
Supine on padded OR bed, head on pillow, safety belt at thigh, left arm padded and tucked at side. Right arm secured on padded arm board <90 degrees abduction. Legs uncrossed. Padded footboard in place. Tape over blanket to secure lower legs.
[2024-02-14] MEDS: iopamidoL 30 ML VIAL 20 ML INJ (10:14)
--- NOTE | 2024-02-14 10:50 | PM.OP.1 ---
Operative Date/Time/Diagnoses Date of procedure: 02/14/24 Time of procedure: 10:50 Pre-op diagnosis: Acute cholecystitis Post-op diagnosis: same Procedure & Clinicians Procedure: Laparoscopic cholecystectomy with intraoperative cholangiogram Same procedure as scheduled: Yes Surgeon: Bradly Woodruff Anesthesia Type: General Operative Notes Procedure in detail: The patient was on scheduled antibiotics. The patient was brought to the operating room, placed on the table in the supine position. General endotracheal anesthesia was induced. The abdomen was prepped and draped. A time-out was performed. We made a 1 cm infraumbilical incision. We dissected down to the base of the umbilical stalk using cautery. We grasped the umbilical stalk with a Rosalio clamp to elevate the abdominal wall. We scored the fascia in the midline with cautery 1 cm. We pierced the peritoneum with a Peon clamp. The Tatiana port was placed and the abdomen was insufflated to 15 mmHg. A 5 mm 30 degree laparoscopic was inserted. There was no evidence of any injury from the entry. Next, we placed 5 mm ports in the subxiphoid position and right upper quadrant at the midclavicular line and anterior axillary line. The patient was then positioned in reverse Trendelenburg and the table was tilted to the left. The gallbladder was very thickened and inflamed and quite tense and distended and so it was decompressed with a needle. We removed approximately 30 mL of purulent bile. We then grasped the gallbladder at the dome and it retracted cephalad. We then dissected the cystic structures with a combination of hook cautery and blunt dissection. We identified the cystic duct and artery. Next, a cholangiogram was performed using the 6 [place] ureteral catheter. There was good flow of contrast into the duodenum and liver with no obvious filling defects. The cystic duct-common duct junction was well visualized. We then placed locking hemostatic clips on the cystic duct and artery and divided the cystic duct and artery sharply between the clips. The gallbladder was then dissected off the liver and placed in a specimen retrieval bag. We irrigated the right upper quadrant and all the aspirate returned clear. We then removed the 5 mm ports under direct vision we removed the Tat[place] port. In order to extract the specimen we had to extend the fascial defect to a proximally 2 cm using curved Baez scissors. We then injected some local into the fascia and closed the fascia with four interrupted 0 Vicryl sutures. The skin incisions were closed with 4 Monocryl and Steri-Strips were applied. Band-Aids were applied over the Steri-Strips. EBL: 30 mL Specimen: Gallbladder and contents Post-operative Condition: stable Disposition: PACU
[2024-02-14] MEDS: HYDROMORPHONE 1 MG INJ IV ×6 (11:06→21:25)
[2024-02-14] MEDS: ONDANSETRON 4 MG/2 ML INJ IV (11:16)
--- NOTE | 2024-02-14 12:02 | PC.NURSE ---
Pt returned from PACU at 1150, A&Ox4, VSS on RA, c/o 8/10 pain to abdomen but drowsy. 4 lap sites to abdomen w/bandaids c/d/i, abd binder in place, bowel sounds hypoactive. Pt reoriented to room and call light. SCDs on, call light within reach, bed in low position.
--- NOTE | 2024-02-14 15:14 | CM.DANOTE ---
Patient is a 68 yo male who was admitted on 02/11/24 for Abd Pain. Pt has [facility] and [employer] for insurance and his PCP is Dr. El Obrien. EMR was reviewed. Per MD, pt with Acute Cholecystitis and to have surgery. Per Surgeon, pt's INR needs to be therapeutic before surgery so was postponed until today and taken to OR this morning. Per RN, pt groggy and somewhat painful and sleeping since return to the floor from surgery. Patient resides in [place] with his and is independent with ADLs at baseline. Pt to have diet slowly advanced and to ambulate to confirm safe discharge home with spouse when medically stable. SW to follow closely in the AM to meet with pt when more medically appropriate. HAYLIE Hough
[2024-02-14] MEDS: ACETAMINOPHEN 325 MG TABLET 650 MG PO (15:43)
--- NOTE | 2024-02-14 16:09 | PM.PN.1 ---
Subjective Subjective Interval history: Patient underwent lap tre this morning and was successful. is at bedside. He is having some appropriate abd pain. Exam Vital Signs (past 8 hours): - 02/14/24 08:47 02/14/24 10:58 02/14/24 11:02 Temperature 97.5 F L 97.1 F L Pulse Rate 110 H 88 88 Respiratory Rate 20 16 16 Blood Pressure 152/76 H 112/80 114/77 Pulse Oximetry 97 93 93 Oxygen Delivery Method Room Air Room Air Room Air 02/14/24 11:03 02/14/24 11:11 02/14/24 11:13 Temperature Pulse Rate 88 84 88 Respiratory Rate 15 13 11 L Blood Pressure 112/74 96/51 L 119/75 Pulse Oximetry 92 92 92 Oxygen Delivery Method Room Air Room Air Room Air 02/14/24 11:19 02/14/24 11:24 02/14/24 11:28 Temperature Pulse Rate 86 98 H 89 Respiratory Rate 14 14 19 Blood Pressure 117/71 114/77 125/79 Pulse Oximetry 93 95 92 Oxygen Delivery Method Room Air Room Air Room Air 02/14/24 11:33 02/14/24 11:50 02/14/24 11:50 Temperature 97.3 F L Pulse Rate 84 98 H Respiratory Rate 14 16 Blood Pressure 120/76 120/78 Pulse Oximetry 96 93 Oxygen Delivery Method Room Air Room Air 02/14/24 12:30 02/14/24 13:00 02/14/24 14:00 Temperature Pulse Rate 91 H 87 95 H Respiratory Rate 16 16 16 Blood Pressure 116/68 113/71 123/70 Pulse Oximetry 91 93 91 Oxygen Delivery Method 02/14/24 15:00 Temperature Pulse Rate 93 H Respiratory Rate 16 Blood Pressure 131/94 H Pulse Oximetry 93 Oxygen Delivery Method Oxygen Delivery Method Room Air Oxygen Flow Rate 0 Narrative Exam Narrative: GEN: appears uncomfortable HEENT: moist mucous membranes, PERRL NECK: trachea midline, no JVD CV: regular rate and rhythm, no murmurs PULM: clear bilaterally ABD: soft, nondistended, no organomegaly EXT: warm and well perfused with no edema NEURO: awake, alert, oriented, no focal deficits Objective Labs 02/14/24 05:26 02/14/24 05:26 Labs: Laboratory Results - last 24 hr 02/14/24 05:26 WBC 10.2 RBC 3.79 L Hgb 13.1 L Hct 38.2 L MCV 100.7 H MCH 34.7 H MCHC 34.4 RDW 13.8 Plt Count 135 L Neut % (Auto) 74.7 Lymph % (Auto) 11.9 L [place] % (Auto) 12.7 Eos % (Auto) 0.6 L Baso % (Auto) 0.1 Neut # (Auto) 7700 H Lymph # (Auto) 1200 [place] # (Auto) 1300 H Eos # (Auto) 100 Baso # (Auto) 0 PT 18.7 H D INR 1.6 H Sodium 135 L Potassium 3.3 L Chloride 105 Carbon Dioxide 24 BUN 12 Creatinine 0.77 Estimated GFR > 60 BUN/Creatinine Ratio 15.6 Glucose 125 H Calcium 8.1 L Total Bilirubin 2.7 H AST 45 ALT 72 H Alkaline Phosphatase 91 Total Protein 6.1 L Albumin 3.3 L Globulin 2.8 Albumin/Globulin Ratio 1.2 PFSH Medical History Thoracic compression fracture Lumbar spondylosis Compression fracture of T6 vertebra Thoracic back pain Low back pain Hypokalemia GERD (gastroesophageal reflux disease) Mitral valve regurgitation KADE (obstructive sleep apnea) Functional mitral regurgitation Knee pain Shoulder pain Vertigo (~1989) Diverticular disease Hypertension Atrial fibrillation Surgical History Anesthesia History of colostomy History of sigmoidoscopy History of laparoscopy History of knee surgery History of hernia surgery Shoulder pain, left History of neck surgery Family History Father Congestive heart failure Hypertension Heart disease Mother Congestive heart failure Diabetes mellitus Hypertension Heart disease Stroke Brother Hyperlipidemia Sister Hyperlipidemia Hypertension Grandfather Stroke Grandmother Heart disease Grandmother Stroke Social History household members: spouse Smoking Status: Never smoker alcohol intake: former substance use type: does not use Assessment & Plan Assessment & Plan narrative: Acute cholecystitis s/p lap tre -CT abd with gallbladder wall thickening and mild edema concerning for acute tre, patient with severe RUQ pain -MRCP negative for choledocho -clears and advance as tolerated -Pain medications and antiemetic as needed -IV fluids -continue ertapenem -Surgical consult for surgery evaluation -restart warfarin Atrial fibrillation on warfarin, rate controlled. -Hold warfarin -continue atenolol -INR daily Hypokalemia. -Replace and monitor electrolytes Elevated blood sugar without any history of diabetes. -A1c 7.3% indicating new-onset diabetes -will start patient on metformin on discharge -outpatient PCP follow-up for management Hypertension. -Restart atenolol and monitor closely Low back pain. -Restart home pain medications Dispo: 1-2 days pending postop management. Time Spent With Patient Time with patient: 50 to 69 minutes with 50% spent counseling/coordinating care Quality VTE Deep Vein Thrombosis/Pulmonary Embolism Present on Admission: No
[2024-02-14] MEDS: OXYCODONE IR 10 MG TABLET PO (23:23)
[2024-02-15 00:16] VITALS: BP 115/79; PULSE 88; RESP 18; TEMP 36.5; O2SAT 97
[2024-02-15] MEDS: HYDROMORPHONE 1 MG INJ IV ×3 (02:13→19:33)
[2024-02-15 05:40] LABS: Add Manual Diff / Slide Review NO; Basophils Absolute Auto 0 /uL (0-100); Basophils Percent Auto 0.3 % (0-2); Eosinophils Absolute Auto 0 /uL (0-450); Hematocrit 37.6 % (41-53); Hemoglobin 12.8 g/dL (13.5-17.5); Lymphocytes Absolute Auto 900 /uL (1100-4500); Mean Corpuscular Hemoglobin 34.3 PG (26-34); Mean Corpuscular Volume 100.7 fL (80-100); Monocytes Absolute Auto 1000 /uL (0-900); Monocytes Percent Auto 8.9 % (3-14); Neutrophils Absolute Auto 9200 /uL (1500-7000); Neutrophils Percent Auto 82.8 % (50-75); Platelet Count 159 X10^3/uL (150-400); Red Blood Cell Count 3.73 X10^6/uL (4.5-5.9); Red Cell Distribution Width 14.2 % (11.6-14.8); White Blood Cell Count 11.1 X10^3/uL (4.5-11.0)
[2024-02-15 05:49] LABS: INR 0.9 (0.9-1.3); Prothrombin Time 10.6 SECONDS (9.4-12.5)
[2024-02-15 05:56] LABS: Alanine Aminotransferase 69 IU/L (<50); Albumin 3.6 g/dL (3.5-5.0); Albumin Globulin Ratio 1.3 (1.0-2.8); Alkaline Phosphatase 84 U/L (38-126); Aspartate Aminotransferase 48 IU/L (17-59); BUN Creatinine Ratio 20.5 (6-22); Bilirubin Total 1.6 mg/dL (0.2-1.3); Blood Urea Nitrogen 17 mg/dL (9-20); Calcium 8.3 mg/dL (8.4-10.2); Carbon Dioxide 24 mmol/L (22-32); Chloride 105 mmol/L (98-107); Estimated Glomerular Filt Rate > 60 mL/min (>60); Globulin 2.8 g/dL (1.7-4.1); Glucose 171 mg/dL (80-110); HEMOLYSIS < 15 (0-50); Potassium 3.9 mmol/L (3.4-5.1); Sodium 135 mmol/L (137-145); Total Protein 6.4 g/dL (6.3-8.2)
[2024-02-15 06:00] VITALS: BP 133/89; PULSE 89; RESP 19; TEMP 36.1; O2SAT 96
[2024-02-15] MEDS: OXYCODONE IR 10 MG TABLET PO ×4 (06:14→21:11)
[2024-02-15] MEDS: ERTAPENEM 1 GM in SODIUM CHLORIDE 0.9% 100 ML IV (08:39)
[2024-02-15] MEDS: atenoloL 50 MG TABLET PO (08:39)
[2024-02-15 12:00] VITALS: BP 140/94; PULSE 93; RESP 18; TEMP 36.1; O2SAT 97
--- NOTE | 2024-02-15 12:02 | PM.PN.1 ---
Subjective Subjective Interval history: Still with pain, no nausea. No BM today. On liquids. Exam Vital Signs (past 8 hours): - 02/15/24 06:00 Temperature 96.9 F L Pulse Rate 89 Respiratory Rate 19 Blood Pressure 133/89 Pulse Oximetry 96 Oxygen Flow Rate 0 Oxygen Delivery Method Room Air Oxygen Flow Rate 0 Narrative Exam Narrative: NAD, fluent speech, Lungs clear, normal effort. CV regualr without murmur. Abdomen: soft with some RUQ tenderness. Hypoactive BT's No leg edema. Objective Labs 02/15/24 05:21 02/15/24 05:21 Labs: Laboratory Results - last 24 hr 02/15/24 05:21 WBC 11.1 H RBC 3.73 L Hgb 12.8 L Hct 37.6 L MCV 100.7 H MCH 34.3 H MCHC 34.0 RDW 14.2 Plt Count 159 Neut % (Auto) 82.8 H Lymph % (Auto) 8.0 L [place] % (Auto) 8.9 Eos % (Auto) 0.0 L Baso % (Auto) 0.3 Neut # (Auto) 9200 H Lymph # (Auto) 900 L [place] # (Auto) 1000 H Eos # (Auto) 0 Baso # (Auto) 0 PT 10.6 D INR 0.9 Sodium 135 L Potassium 3.9 Chloride 105 Carbon Dioxide 24 BUN 17 Creatinine 0.83 Estimated GFR > 60 BUN/Creatinine Ratio 20.5 Glucose 171 H Calcium 8.3 L Total Bilirubin 1.6 H AST 48 ALT 69 H Alkaline Phosphatase 84 Total Protein 6.4 Albumin 3.6 Globulin 2.8 Albumin/Globulin Ratio 1.3 PFSH Medical History Thoracic compression fracture Lumbar spondylosis Compression fracture of T6 vertebra Thoracic back pain Low back pain Hypokalemia GERD (gastroesophageal reflux disease) Mitral valve regurgitation KADE (obstructive sleep apnea) Functional mitral regurgitation Knee pain Shoulder pain Vertigo (~1989) Diverticular disease Hypertension Atrial fibrillation Surgical History Anesthesia History of colostomy History of sigmoidoscopy History of laparoscopy History of knee surgery History of hernia surgery Shoulder pain, left History of neck surgery Family History Father Congestive heart failure Hypertension Heart disease Mother Congestive heart failure Diabetes mellitus Hypertension Heart disease Stroke Brother Hyperlipidemia Sister Hyperlipidemia Hypertension Grandfather Stroke Grandmother Heart disease Grandmother Stroke Social History household members: spouse Smoking Status: Never smoker alcohol intake: former substance use type: does not use Assessment & Plan Assessment & Plan narrative: Acute cholecystitis s/p lap cholecystectomy. Present on admission and improving. -CT abd with gallbladder wall thickening and mild edema concerning for acute tre, patient with severe RUQ pain -MRCP negative for choledocho -clears and advance as tolerated -Pain medications and antiemetic as needed -IV fluids -continue ertapenem Atrial fibrillation on warfarin, rate controlled. Present on admission and stable. -Hold warfarin -continue atenolol -INR daily Hypokalemia. Present on admission and improving. -Replace and monitor electrolytes Elevated blood sugar without any history of diabetes. Present on admission and improving. -A1c 7.3% indicating new-onset diabetes -will start patient on metformin on discharge -outpatient PCP follow-up for management Hypertension. Present on admission and improving. -Restart atenolol and monitor closely Low back pain. Present on admission and improving. -Restart home pain medications Dispo: 1 more night of clinical observation. Quality VTE Deep Vein Thrombosis/Pulmonary Embolism Present on Admission: No
--- NOTE | 2024-02-15 12:29 | PM.PN.1 ---
Subjective Subjective Date Patient Seen: 02/15/24 Time Patient Seen: 12:29 Interval history: Cory does not have much of an appetite yet. Exam Vital Signs (past 8 hours): - 02/15/24 06:00 02/15/24 12:00 Temperature 96.9 F L 97.0 F L Pulse Rate 89 93 H Respiratory Rate 19 18 Blood Pressure 133/89 140/94 H Pulse Oximetry 96 97 Oxygen Flow Rate 0 0 Oxygen Delivery Method Room Air Oxygen Flow Rate 0 Const General: No acute distress Resp Effort & Inspection: normal respiratory effort Objective Labs 02/15/24 05:21 02/15/24 05:21 Labs: Laboratory Results - last 24 hr 02/15/24 05:21 WBC 11.1 H RBC 3.73 L Hgb 12.8 L Hct 37.6 L MCV 100.7 H MCH 34.3 H MCHC 34.0 RDW 14.2 Plt Count 159 Neut % (Auto) 82.8 H Lymph % (Auto) 8.0 L [place] % (Auto) 8.9 Eos % (Auto) 0.0 L Baso % (Auto) 0.3 Neut # (Auto) 9200 H Lymph # (Auto) 900 L [place] # (Auto) 1000 H Eos # (Auto) 0 Baso # (Auto) 0 PT 10.6 D INR 0.9 Sodium 135 L Potassium 3.9 Chloride 105 Carbon Dioxide 24 BUN 17 Creatinine 0.83 Estimated GFR > 60 BUN/Creatinine Ratio 20.5 Glucose 171 H Calcium 8.3 L Total Bilirubin 1.6 H AST 48 ALT 69 H Alkaline Phosphatase 84 Total Protein 6.4 Albumin 3.6 Globulin 2.8 Albumin/Globulin Ratio 1.3 PFSH Medical History Thoracic compression fracture Lumbar spondylosis Compression fracture of T6 vertebra Thoracic back pain Low back pain Hypokalemia GERD (gastroesophageal reflux disease) Mitral valve regurgitation KADE (obstructive sleep apnea) Functional mitral regurgitation Knee pain Shoulder pain Vertigo (~1989) Diverticular disease Hypertension Atrial fibrillation Surgical History Anesthesia History of colostomy History of sigmoidoscopy History of laparoscopy History of knee surgery History of hernia surgery Shoulder pain, left History of neck surgery Family History Father Congestive heart failure Hypertension Heart disease Mother Congestive heart failure Diabetes mellitus Hypertension Heart disease Stroke Brother Hyperlipidemia Sister Hyperlipidemia Hypertension Grandfather Stroke Grandmother Heart disease Grandmother Stroke Social History household members: spouse Smoking Status: Never smoker alcohol intake: former substance use type: does not use Assessment & Plan Assessment and plan (1) Acute cholecystitis: Status: Acute Plan Stay with clears today Hopefully he can advance diet and discharge by tomorrow Resume anticoagulation tomorrow Quality VTE Deep Vein Thrombosis/Pulmonary Embolism Present on Admission: No
--- NOTE | 2024-02-15 14:36 | CM.DPC ---
DCP Cont: Per Surgeon and MD, pt tolerated Lap [place] well but not much of an appetite and no bm yet and will remain on clears today to see how he tolerates and slowly advance diet towards possible discharge tomorrow Tues if medically stable and outpt f/u. No identified barriers to discharge. HAYLIE Hough
[2024-02-15] MEDS: ACETAMINOPHEN 325 MG TABLET 650 MG PO (17:05)
[2024-02-15 18:00] VITALS: BP 123/84; PULSE 99; RESP 18; TEMP 36.2; O2SAT 97
[2024-02-15] MEDS: WARFARIN 5 MG TABLET PO (19:33)
[2024-02-15 20:35] VITALS: BP 144/87; PULSE 100; RESP 18; TEMP 36.6; O2SAT 97
[2024-02-16 00:05] VITALS: BP 124/73; PULSE 95; RESP 18; TEMP 36.5; O2SAT 96
[2024-02-16] MEDS: ACETAMINOPHEN 325 MG TABLET 650 MG PO ×3 (01:00→21:44)
[2024-02-16] MEDS: OXYCODONE IR 10 MG TABLET PO ×7 (01:00→21:45)
[2024-02-16] MEDS: HYDROMORPHONE 1 MG INJ IV (02:49)
[2024-02-16 05:23] VITALS: BP 148/94; PULSE 101; RESP 18; TEMP 36.3; O2SAT 94
[2024-02-16 05:58] LABS: Add Manual Diff / Slide Review NO; Basophils Absolute Auto 100 /uL (0-100); Basophils Percent Auto 0.6 % (0-2); Eosinophils Absolute Auto 0 /uL (0-450); Hematocrit 39.3 % (41-53); Hemoglobin 13.2 g/dL (13.5-17.5); Lymphocytes Absolute Auto 1800 /uL (1100-4500); Lymphocytes Percent Auto 14.8 % (25-40); Mean Corpuscular HGB Conc 33.6 % (30-36); Mean Corpuscular Hemoglobin 34.3 PG (26-34); Mean Corpuscular Volume 102.2 fL (80-100); Monocytes Absolute Auto 1800 /uL (0-900); Monocytes Percent Auto 14.9 % (3-14); Neutrophils Absolute Auto 8400 /uL (1500-7000); Neutrophils Percent Auto 69.7 % (50-75); Platelet Count 195 X10^3/uL (150-400); Red Blood Cell Count 3.85 X10^6/uL (4.5-5.9)
[2024-02-16 06:11] LABS: INR 1.3 (0.9-1.3)
[2024-02-16 06:19] LABS: Alanine Aminotransferase 63 IU/L (<50); Albumin 3.7 g/dL (3.5-5.0); Albumin Globulin Ratio 1.2 (1.0-2.8); Alkaline Phosphatase 85 U/L (38-126); Aspartate Aminotransferase 43 IU/L (17-59); BUN Creatinine Ratio 22.8 (6-22); Bilirubin Total 1.7 mg/dL (0.2-1.3); Blood Urea Nitrogen 21 mg/dL (9-20); Calcium 8.5 mg/dL (8.4-10.2); Carbon Dioxide 23 mmol/L (22-32); Chloride 105 mmol/L (98-107); Estimated Glomerular Filt Rate > 60 mL/min (>60); Glucose 133 mg/dL (80-110); HEMOLYSIS < 15 (0-50); Potassium 3.5 mmol/L (3.4-5.1); Sodium 137 mmol/L (137-145); Total Protein 6.7 g/dL (6.3-8.2)
[2024-02-16 08:00] VITALS: BP 136/87; PULSE 94; RESP 16; TEMP 35.8; O2SAT 97
[2024-02-16] MEDS: atenoloL 50 MG TABLET PO (08:52)
[2024-02-16] MEDS: ERTAPENEM 1 GM in SODIUM CHLORIDE 0.9% 100 ML IV (08:54)
[2024-02-16] MEDS: POTASSIUM CHLORIDE 20 MEQ TAB 40 MEQ PO (10:33)
[2024-02-16 12:00] VITALS: BP 113/76; PULSE 95; RESP 18; TEMP 36.1; O2SAT 97
--- NOTE | 2024-02-16 13:50 | CM.DPC ---
DCP Cont. Reviewed EMR and team rounds for status updates. Pt has been advancing diet with no concerns. He will likely d/c home with family later this evening, however we are waiting on Surgery to round and decide if pt is medically cleared for d/c. Will continue to monitor and assist as needed.
--- NOTE | 2024-02-16 14:43 | PM.PN.1 ---
Subjective Subjective Interval history: Developed nausea, vomiting this afternoon after lunch. Thinks he ate too much. Some diarrhea but mild. Some bloating as well. Requesting pain medication every 3 hours. Exam Vital Signs (past 8 hours): - 02/16/24 08:00 02/16/24 12:00 Temperature 96.4 F L 97.0 F L Pulse Rate 94 H 95 H Respiratory Rate 16 18 Blood Pressure 136/87 113/76 Pulse Oximetry 97 97 Oxygen Flow Rate 0 0 Oxygen Delivery Method Room Air Oxygen Flow Rate 0 Narrative Exam Narrative: NAD, fluent speech, Lungs clear, normal effort. CV regualr without murmur. Abdomen: soft, mild distension, appropriate tenderness Hypoactive BT's No leg edema. Objective Labs 02/16/24 05:41 02/16/24 05:41 Labs: Laboratory Results - last 24 hr 02/16/24 05:41 WBC 12.0 H RBC 3.85 L Hgb 13.2 L Hct 39.3 L MCV 102.2 H MCH 34.3 H MCHC 33.6 RDW 14.0 Plt Count 195 Neut % (Auto) 69.7 Lymph % (Auto) 14.8 L [place] % (Auto) 14.9 H Eos % (Auto) 0.0 L Baso % (Auto) 0.6 Neut # (Auto) 8400 H Lymph # (Auto) 1800 [place] # (Auto) 1800 H Eos # (Auto) 0 Baso # (Auto) 100 PT 15.0 H INR 1.3 Sodium 137 Potassium 3.5 Chloride 105 Carbon Dioxide 23 BUN 21 H Creatinine 0.92 Estimated GFR > 60 BUN/Creatinine Ratio 22.8 H Glucose 133 H Calcium 8.5 Total Bilirubin 1.7 H AST 43 ALT 63 H Alkaline Phosphatase 85 Total Protein 6.7 Albumin 3.7 Globulin 3.0 Albumin/Globulin Ratio 1.2 PFSH Medical History Thoracic compression fracture Lumbar spondylosis Compression fracture of T6 vertebra Thoracic back pain Low back pain Hypokalemia GERD (gastroesophageal reflux disease) Mitral valve regurgitation KADE (obstructive sleep apnea) Functional mitral regurgitation Knee pain Shoulder pain Vertigo (~1989) Diverticular disease Hypertension Atrial fibrillation Surgical History Anesthesia History of colostomy History of sigmoidoscopy History of laparoscopy History of knee surgery History of hernia surgery Shoulder pain, left History of neck surgery Family History Father Congestive heart failure Hypertension Heart disease Mother Congestive heart failure Diabetes mellitus Hypertension Heart disease Stroke Brother Hyperlipidemia Sister Hyperlipidemia Hypertension Grandfather Stroke Grandmother Heart disease Grandmother Stroke Social History household members: spouse Smoking Status: Never smoker alcohol intake: former substance use type: does not use Assessment & Plan Assessment & Plan narrative: Acute cholecystitis s/p lap cholecystectomy. Present on admission and improving. -CT abd with gallbladder wall thickening and mild edema concerning for acute tre, patient with severe RUQ pain -MRCP negative for choledocho -continue diet, patient can eat as tolerated but developed emesis today with meals. -Pain medications and antiemetic as needed -continue ertapenem for now, discontinue at discharge Atrial fibrillation on warfarin, rate controlled. Present on admission and stable. -restarted warfarin per pharmacy -continue atenolol -INR daily Hypokalemia. Present on admission and improving. -Replace and monitor electrolytes Elevated blood sugar without any history of diabetes. Present on admission and improving. -A1c 7.3% indicating new-onset diabetes -will start patient on metformin on discharge -outpatient PCP follow-up for management Hypertension. Present on admission and improving. -Restart atenolol and monitor closely Low back pain. Present on admission and improving. -Restart home pain medications Dispo: hopeful for discharge tomorrow if diet tolerance improved and improvement in pain control. Quality VTE Deep Vein Thrombosis/Pulmonary Embolism Present on Admission: No
--- NOTE | 2024-02-16 14:44 | PM.PN.1 ---
Subjective Subjective Date Patient Seen: 02/16/24 Time Patient Seen: 14:44 Interval history: Feeling better today. Tolerating some regular diet. Still having a fair amount of abdominal pain. Exam Vital Signs (past 8 hours): - 02/16/24 08:00 02/16/24 12:00 Temperature 96.4 F L 97.0 F L Pulse Rate 94 H 95 H Respiratory Rate 16 18 Blood Pressure 136/87 113/76 Pulse Oximetry 97 97 Oxygen Flow Rate 0 0 Oxygen Delivery Method Room Air Oxygen Flow Rate 0 Const General: No acute distress Resp Effort & Inspection: normal respiratory effort Objective Labs 02/16/24 05:41 02/16/24 05:41 Labs: Laboratory Results - last 24 hr 02/16/24 05:41 WBC 12.0 H RBC 3.85 L Hgb 13.2 L Hct 39.3 L MCV 102.2 H MCH 34.3 H MCHC 33.6 RDW 14.0 Plt Count 195 Neut % (Auto) 69.7 Lymph % (Auto) 14.8 L [place] % (Auto) 14.9 H Eos % (Auto) 0.0 L Baso % (Auto) 0.6 Neut # (Auto) 8400 H Lymph # (Auto) 1800 [place] # (Auto) 1800 H Eos # (Auto) 0 Baso # (Auto) 100 PT 15.0 H INR 1.3 Sodium 137 Potassium 3.5 Chloride 105 Carbon Dioxide 23 BUN 21 H Creatinine 0.92 Estimated GFR > 60 BUN/Creatinine Ratio 22.8 H Glucose 133 H Calcium 8.5 Total Bilirubin 1.7 H AST 43 ALT 63 H Alkaline Phosphatase 85 Total Protein 6.7 Albumin 3.7 Globulin 3.0 Albumin/Globulin Ratio 1.2 [facility] Medical History Thoracic compression fracture Lumbar spondylosis Compression fracture of T6 vertebra Thoracic back pain Low back pain Hypokalemia GERD (gastroesophageal reflux disease) Mitral valve regurgitation KADE (obstructive sleep apnea) Functional mitral regurgitation Knee pain Shoulder pain Vertigo (~1989) Diverticular disease Hypertension Atrial fibrillation Surgical History Anesthesia History of colostomy History of sigmoidoscopy History of laparoscopy History of knee surgery History of hernia surgery Shoulder pain, left History of neck surgery Family History Father Congestive heart failure Hypertension Heart disease Mother Congestive heart failure Diabetes mellitus Hypertension Heart disease Stroke Brother Hyperlipidemia Sister Hyperlipidemia Hypertension Grandfather Stroke Grandmother Heart disease Grandmother Stroke Social History household members: spouse Smoking Status: Never smoker alcohol intake: former substance use type: does not use Assessment & Plan Assessment and plan (1) Acute cholecystitis: Status: Acute Plan He can be discharged once he is no longer requiring IV pain control. Quality VTE Deep Vein Thrombosis/Pulmonary Embolism Present on Admission: No
--- NOTE | 2024-02-16 16:18 | DIET.CONS ---
Dietary Consultation Note Admission Date: 02/11/2024 21:06 Assessment: 68 y M admitted for acute cholecystitis. Nutrition screened for LOS day 5. Pt's diet advanced to regular. Per surgery, abdominal pain still present. No significant weight loss noted per chart review. Ht: 187.96 cm Wt: 97.522 kg BMI: 27.6 UBW: 97-100 kg per chart Last BM: 02/16/24 (02/16/24 09:00) MNA: Tom Score: 21 Diet: 02/16/24 Lunch General (Regular) Diet Diet Modifications: Food Texture: Level 7 - Regular Liquid Consistency: Level 0 - Thin Nutrition Percent Meal Consumed 100% 02/15/24 18:00 Percent Meal Consumed 10% 02/15/24 15:29 Percent Meal Consumed 50% 02/15/24 08:51 Percent Meal Consumed ice chips 02/14/24 21:23 Labs: RBC 3.85 X10^6/uL (4.5-5.9) L 02/16/24 05:41 Hgb 13.2 g/dL (13.5-17.5) L 02/16/24 05:41 Hct 39.3 % (41-53) L 02/16/24 05:41 Creatinine 0.92 mg/dL (0.66-1.25) 02/16/24 05:41 Hemoglobin A1c 7.3 % (4.0-6.0) H 02/11/24 15:13 Lactate 1.5 mmol/L (0.7-2.1) 02/11/24 16:35 Nutrition Diagnosis: Inadequate oral intake r/t to GI distress/post-op lap tre as evidenced by NPO/clears for 5 days Interventions: 1. Protein supplementation as tolerated if po intakes are inadequate Monitoring/Evaluations: po intakes, diet tolerance Electronically Signed by: Cherelle Redmond 02/16/24 16:18 Clinical Dietitian [address] [id number]
[2024-02-16 18:00] VITALS: BP 129/74; PULSE 85; RESP 16; TEMP 35.8; O2SAT 96
[2024-02-16] MEDS: hydroCHLOROthiazide 25 MG TABLET PO (18:45)
[2024-02-16] MEDS: WARFARIN 2.5 MG TABLET PO (18:49)
[2024-02-16] MEDS: WARFARIN 5 MG TABLET PO (18:51)
[2024-02-16] MEDS: ONDANSETRON 4 MG/2 ML INJ IV (20:25)
[2024-02-17] MEDS: OXYCODONE IR 10 MG TABLET PO ×4 (00:46→10:17)
[2024-02-17] MEDS: ACETAMINOPHEN 325 MG TABLET 650 MG PO ×2 (03:58→10:16)
[2024-02-17 04:23] VITALS: BP 135/78; PULSE 111; RESP 16; TEMP 36.3; O2SAT 95
[2024-02-17 06:43] LABS: Add Manual Diff / Slide Review NO; Basophils Absolute Auto 0 /uL (0-100); Basophils Percent Auto 0.5 % (0-2); Eosinophils Absolute Auto 100 /uL (0-450); Eosinophils Percent Auto 0.5 % (2-4); Hematocrit 38.8 % (41-53); Hemoglobin 13.1 g/dL (13.5-17.5); Lymphocytes Absolute Auto 2200 /uL (1100-4500); Lymphocytes Percent Auto 22.8 % (25-40); Mean Corpuscular HGB Conc 33.8 % (30-36); Mean Corpuscular Hemoglobin 34.4 PG (26-34); Mean Corpuscular Volume 101.7 fL (80-100); Monocytes Absolute Auto 1300 /uL (0-900); Monocytes Percent Auto 13.6 % (3-14); Neutrophils Absolute Auto 6200 /uL (1500-7000); Neutrophils Percent Auto 62.6 % (50-75); Platelet Count 202 X10^3/uL (150-400); Red Blood Cell Count 3.82 X10^6/uL (4.5-5.9); Red Cell Distribution Width 13.9 % (11.6-14.8); White Blood Cell Count 9.9 X10^3/uL (4.5-11.0)
[2024-02-17 06:49] LABS: INR 1.5 (0.9-1.3); Prothrombin Time 17.7 SECONDS (9.4-12.5)
[2024-02-17 06:53] LABS: Alanine Aminotransferase 50 IU/L (<50); Albumin 3.5 g/dL (3.5-5.0); Albumin Globulin Ratio 1.3 (1.0-2.8); Alkaline Phosphatase 80 U/L (38-126); Aspartate Aminotransferase 29 IU/L (17-59); BUN Creatinine Ratio 20.2 (6-22); Bilirubin Total 1.6 mg/dL (0.2-1.3); Blood Urea Nitrogen 17 mg/dL (9-20); Calcium 8.4 mg/dL (8.4-10.2); Carbon Dioxide 28 mmol/L (22-32); Chloride 106 mmol/L (98-107); Estimated Glomerular Filt Rate > 60 mL/min (>60); Globulin 2.8 g/dL (1.7-4.1); Glucose 116 mg/dL (80-110); HEMOLYSIS < 15 (0-50); Potassium 3.6 mmol/L (3.4-5.1); Sodium 139 mmol/L (137-145); Total Protein 6.3 g/dL (6.3-8.2)
[2024-02-17 08:00] VITALS: BP 134/89; PULSE 94; RESP 17; TEMP 35.9; O2SAT 94
[2024-02-17] MEDS: ERTAPENEM 1 GM in SODIUM CHLORIDE 0.9% 100 ML IV (08:57)
[2024-02-17] MEDS: atenoloL 50 MG TABLET PO (09:08)
[2024-02-17] MEDS: hydroCHLOROthiazide 25 MG TABLET PO (09:08)
--- NOTE | 2024-02-17 10:21 | PM.DS.1 ---
History of Present Illness History of Present Illness Date Patient Seen: 02/17/24 Time Patient Seen: 10:21 Chief complaint: abd back pain and headache Narrative: Per admitting provider, 67 years old male with history of atrial fibrillation on Coumadin, hypertension, obstructive sleep apnea, GERD, low back pain, low back pain presented to the ER with acute abdominal pain since this afternoon. The pain was described as right upper quadrant, constant, severe, sharp, associated with vomiting, radiating to his back, relieved by pain medications. Never had this pain before. Denies any fever, shortness of breath, chest pain, palpitations but mild constipation. His last bowel movement was 6 PM and was kind of hard. Reported multiple surgeries in the past including bowel resection for diverticulitis 7 years ago, right total hip replacement, hernia repair and surgery. Laboratory shows WBC 17.3, hemoglobin 16.5, platelets 211, INR 1.7, potassium 3, sodium 135, blood sugar 151, initial lactic acid 3.5 with repeat 1.5, total bilirubin 2.1, LFTs normal. CT scan of the abdomen shows cholecystitis with thickening of gallbladder wall. General surgery was consulted for acute cholecystitis. He was given ceftriaxone 2 g IV, Flagyl 5 mg IV, Toradol, Zofran, morphine and fluid bolus. Discharge Providers Provider Date of admission: 02/11/24 21:06 Discharge Date: 02/17/24 Primary care physician: El Obrien DO Consults: 02/11/24 20:54 Consult to General Surgery Stat Comment: Consulting Provider: Bradly Woodruff Reason for consultation: acute cholecystitis Has provider been notified: Yes 02/11/24 21:13 Consult to Discharge Planning Routine Comment: Discharge provider: Armando Alejandro DO Summary Hospital Course Discharge Diagnosis: Acute cholecystitis s/p lap cholecystectomy. Present on admission and improving. Chronic Atrial fibrillation on warfarin, rate controlled. Present on admission and stable. Hypokalemia. Present on admission and improving. Elevated blood sugar without any history of diabetes. Present on admission and improving. Hypertension. Present on admission and improving. Low back pain. Present on admission and improving. Hospital Course: This is a 68 year old male with PMH of atrial fibrillation, HTN who was admitted with acute cholecystitis. MRCP was performed which showed no evidence of obstructing stone. Patient was started on ertapenem which was continued until discharge. He underwent laparoscopic cholecystectomy. He took some time to tolerate a diet after his surgery, and had emesis on the day prior to discharge. The following day he was tolerating a diet with adequate pain control. He did have an A1c of 7.3%, indicating a new diagnosis of diabetes. Metformin was sent to his pharmacy. Time Spent with Patient Time spent: Greater than 30 minutes Exam Vital Signs (past 8 hours): - 02/17/24 04:23 02/17/24 08:00 Temperature 97.4 F L 96.7 F L Pulse Rate 111 H 94 H Respiratory Rate 16 17 Blood Pressure 135/78 134/89 Pulse Oximetry 95 94 Oxygen Flow Rate 0 Oxygen Delivery Method Room Air Oxygen Flow Rate 0 Narrative Exam Narrative: NAD, fluent speech, Lungs clear, normal effort. CV regualr without murmur. Abdomen: soft, mild distension, appropriate tenderness Hypoactive BT's No leg edema. Objective Labs 02/17/24 06:34 02/17/24 06:34 Labs: Laboratory Results - last 24 hr 02/17/24 06:34 WBC 9.9 RBC 3.82 L Hgb 13.1 L Hct 38.8 L MCV 101.7 H MCH 34.4 H MCHC 33.8 RDW 13.9 Plt Count 202 Neut % (Auto) 62.6 Lymph % (Auto) 22.8 L [place] % (Auto) 13.6 Eos % (Auto) 0.5 L Baso % (Auto) 0.5 Neut # (Auto) 6200 Lymph # (Auto) 2200 [place] # (Auto) 1300 H Eos # (Auto) 100 Baso # (Auto) 0 PT 17.7 H INR 1.5 H Sodium 139 Potassium 3.6 Chloride 106 Carbon Dioxide 28 BUN 17 Creatinine 0.84 Estimated GFR > 60 BUN/Creatinine Ratio 20.2 Glucose 116 H Calcium 8.4 Total Bilirubin 1.6 H AST 29 ALT 50 H Alkaline Phosphatase 80 Total Protein 6.3 Albumin 3.5 Globulin 2.8 Albumin/Globulin Ratio 1.3 PFSH Medical History Thoracic compression fracture Lumbar spondylosis Compression fracture of T6 vertebra Thoracic back pain Low back pain Hypokalemia GERD (gastroesophageal reflux disease) Mitral valve regurgitation KADE (obstructive sleep apnea) Functional mitral regurgitation Knee pain Shoulder pain Vertigo (~1989) Diverticular disease Hypertension Atrial fibrillation Surgical History Anesthesia History of colostomy History of sigmoidoscopy History of laparoscopy History of knee surgery History of hernia surgery Shoulder pain, left History of neck surgery Family History Father Congestive heart failure Hypertension Heart disease Mother Congestive heart failure Diabetes mellitus Hypertension Heart disease Stroke Brother Hyperlipidemia Sister Hyperlipidemia Hypertension Grandfather Stroke Grandmother Heart disease Grandmother Stroke Social History household members: spouse Smoking Status: Never smoker alcohol intake: former substance use type: does not use Discharge Plan Discharge Plan Patient Disposition: Home Provider Discharge Comment: You were admitted to the hospital with an infection in your gallbladder. this was removed by the surgeons. Please follow up with surgery clinic, they should call you to schedule a time, and your PCP / coumadin clinic after restarting coumadin. Discharge orders & Medications Prescriptions: New oxycodone 10 mg Tablet 10 mg PO Q3HR PRN (Reason: Pain, Severe (7-10)) 7 Days Qty: 30 0RF metformin 500 mg tablet 500 mg PO BID 30 Days Qty: 60 0RF Continued multivitamin Capsule 1 cap PO DAILY Qty: 0 omega [id number]-wga-fish oil [Fish Oil] 1,000 mg (120 mg-180 mg) Capsule 1 cap PO DAILY Qty: 0 warfarin 2.5 mg tablet 2.5 mg PO .COMPLEX Qty: 14 0RF Rx Instructions: Take 5mg Mon and Fri and 2.5mg all other days, or as directed. atenolol 50 mg tablet 50 mg PO QPM coenzyme Q10 10 mg Capsule 10 mg PO DAILY simvastatin 20 mg tablet 20 mg PO BEDTIME hydrochlorothiazide 50 mg tablet 50 mg PO DAILY Discontinued oxycodone 10 mg Tablet 10 mg PO SEEINSTR PRN (Reason: Pain (Scale Score 4-6)) Rx Instructions: PATIENT TAKES PRN. WASN'T ABLE TO STATE FREQUENCY OF PRESCRIPTION. Follow up/Referrals: El Obrien DO [Primary Care Provider] - Diet/Activity/Treatments Diet: Diet as Tolerated and Regular Activity: As tolerated Visit Report/Discharge Packet Stand Alone Forms: Patient Portal/API, Stroke Signs & Symptoms Discharge Data Primary Care Provider: El Obrien VTE Deep Vein Thrombosis/Pulmonary Embolism Present on Admission: No
--- NOTE | 2024-02-17 11:25 | PC.NURSE ---
Pt discharged home at 1115, escorted off floor in wheelchair accompanied by spouse and hospital staff. IV removed, discharge teaching completed including new medications, follow up appointments and worsening symptoms. Questions answered and concerns addressed. Patient left the floor with all belongings.
== END 2024-02-17 11:31 | disposition home or self-care (01) | DRG 418 ==
LOC: ED 21:06 → AC 02-12 06:14
PROVIDERS: Emergency Medicine; Student in an Organized Health Care Education/Training Program; Surgery; Admitting Provider Internal Medicine; Emergency Provider Emergency Medicine; PCP Family Medicine; Visit Provider Internal Medicine
PROC: 0FT44ZZ Resection of Gallbladder, Percutaneous Endoscopic Approach (ICD-10-PCS; CPT 47562; principal; 2024-02-14 09:00)
DX: K81.0 Acute cholecystitis (principal); I48.20 Chronic atrial fibrillation, unspecified; E87.6 Hypokalemia; I10 Essential (primary) hypertension; M54.50 Low back pain, unspecified; E11.65 Type 2 diabetes mellitus with hyperglycemia; Z79.01 Long term (current) use of anticoagulants
CPT/HCPCS: 36415; 74177; 74183; 74300; 76705; 80053; 81003; 83036; 83605; 83690; 83735; 84145; 85025; 85610; 86900; 86901; 86927; 87040; 93005; 96365; 96366; 96367; 96368; 96375; 99284; A9579; J0171; J0696; J1100; J1170; J1335; J1885; J2060; J2270; J2405; J2704; J3010; J3430; J3475; Q9967

== ENCOUNTER → 2024-04-06 10:55 | Outpatient (CLI) | payer MEDICARE, OTHER, SELFPAY ==
[2024-02-12 08:35] VITALS: BMI 27.6
--- NOTE | 2024-04-15 10:54 | DIAB.MNT ---
Initial Diabetes Medical Nutrition Therapy Assessment Name: Kenrick Smalls (Cory) Date: 04/06/24 Time: 11a-12p Dx: Type II Diabetes Provider: Anna Maria Fred presents with Natali, his spouse for initial DM visit. Newly dx with T2DM with last two hga1c of 7.3% in February and 6.6% last October. Endorses FH of Dm with mother. Also significant for PMH of diberticulitis reportedly. Started Metformin 500mg BID States he is hungry a lot and eats 5x per day small meals. Diet recall: 0a: oatmeal x 2/3c dry with brown sugar, dried fruit, milk and toast with butter OR cream of wheat pkt with milk and toast OR yogurt with trail mix OR toast with butter and omelet mid morning sn: yogur tor berries or banana and 12oz milk 12-2p: ham sandwich and 1c chips sn: nuts 530-630p: potato and stea OR homemade chicken pot pie OR pasta x 2c with meat sauce and salad OR cod with 1c brown rice and salad 4-5 x 12oz water, 12oz milk, 8oz apple juice, rarely ETOH though more recntly 6 per day Recent cholecystectomy. Recent spinal fx reported from fall. Anthropometrics: Ht: 6'2 Wt: 209# 02/2024 Physical Activity: Limited due to knee pain. Walking around the yard. Overall min PA Self-Monitoring Blood Glucose: Checking BG TID: FBG and variable times after. FBG running 126-151 recently. Other numbers pre or post eating range from 108-165mg/dl. Diabetes Medications: 500mg BID Metformin Pertinent Labs: HGA1c: 6.6% 10/2023 7.3% 02/2024 Past Medical History: (Last Reviewed 03/09/24 @ 09:18 by Jcarlos Lazar RN) Atrial fibrillation Compression fracture of C1 vertebra Compression fracture of T6 vertebra Diverticular disease Functional mitral regurgitation w/tricuspid regurgitation GERD (gastroesophageal reflux disease) Hypertension Hypokalemia Knee pain Left knee disability Low back pain Lumbar spondylosis Mitral valve regurgitation Moderate in the setting of severe left atrial enlargement by ECHO 12/16/17 KADE (obstructive sleep apnea) Intolerant of CPAP Shoulder pain Thoracic back pain Thoracic compression fracture Vertigo (~1989) Nutrition Rx: Carbohydrates: Meal:45g Snack:15-30g Nutrition Diagnosis: - Food and nutrition related knowledge deficit r/t new dx T2DM aeb elevated hgA1c, BG results and diet recall Intervention: This participant was very receptive. Provided appropriate educational handouts. Discussed the following topics: Completed intake assessment. Discussed barriers to care. Pathophysiology of T2DM HgA1c, its correlation to blood glucose numbers, and rationale for goal Importance of self-monitoring, how often, and when to check. Suggested checking at different times to evaluate meals Plate Method, impact of macronutrients on blood sugar, meal timing, carbohydrate counting, pairing macronutrients and spreading out carbohydrates for better blood glucose management Recommended servings for carbohydrates at meals and snacks Heart health nutrition Brainstormed appropriate meal plan based on food preferences Role of physical activity and following provider guidelines for safety Created SMART goals for patient self-care and success. Goals: Add protein to breakfast and reduce CHO portion Check BG FBG and 1-2 hour pc Follow-up: DAVE RING follow-up in 2-3 weeks Rosario Lozano RDN, [facility] Certified Diabetes Care and Imaging Clerk P: [phone] Thank you for this referral
== END ==
LOC: DIET 10:56
PROVIDERS: PCP Family Medicine; Referring Provider Family Medicine
DX: E11.9 Type 2 diabetes mellitus without complications (principal); Z71.3 Dietary counseling and surveillance; Z68.27 Body mass index [BMI] 27.0-27.9, adult
CPT/HCPCS: 97802

== ENCOUNTER → 2024-04-13 16:10 | Outpatient (CLI) | payer MEDICARE, OTHER, SELFPAY ==
[2024-02-12 08:35] VITALS: BMI 27.6
[2024-04-13 17:13] LABS: Add Manual Diff / Slide Review NO; Basophils Absolute Auto 100 /uL (0-100); Basophils Percent Auto 0.4 % (0-2); Eosinophils Absolute Auto 0 /uL (0-450); Eosinophils Percent Auto 0.2 % (2-4); Hematocrit 44.6 % (41-53); Hemoglobin 15.5 g/dL (13.5-17.5); Lymphocytes Absolute Auto 2700 /uL (1100-4500); Lymphocytes Percent Auto 22.5 % (25-40); Mean Corpuscular HGB Conc 34.7 % (30-36); Mean Corpuscular Hemoglobin 34.4 PG (26-34); Mean Corpuscular Volume 99.1 fL (80-100); Monocytes Absolute Auto 1900 /uL (0-900); Monocytes Percent Auto 15.7 % (3-14); Neutrophils Absolute Auto 7400 /uL (1500-7000); Neutrophils Percent Auto 61.2 % (50-75); Platelet Count 175 X10^3/uL (150-400); Red Blood Cell Count 4.51 X10^6/uL (4.5-5.9); Red Cell Distribution Width 14.7 % (11.6-14.8)
== END ==
PROVIDERS: PCP Family Medicine; Referring Provider Physician Assistant; Visit Provider Physician Assistant
DX: D64.9 Anemia, unspecified (principal)
CPT/HCPCS: 36415; 85025

== ENCOUNTER 2024-04-14 05:49 | Emergency (ER) | payer MEDICARE, OTHER, SELFPAY ==
[2024-02-12 08:35] VITALS: BMI 27.6
[2024-04-14 05:56] VITALS: BP 139/69; PULSE 97; RESP 20; TEMP 36.9; O2SAT 98; BMI 27.7
--- NOTE | 2024-04-14 06:06 | DI.RAD.S_ITS ---
PROCEDURE: XR WRIST RT MIN 3V INDICATIONS: injury, pain TECHNIQUE: 4 views of the wrist were acquired. COMPARISON: None. FINDINGS: Bones: No fractures or dislocations. Degenerative changes, most pronounced at the 1st CMC joint. No suspicious bony lesions. Soft tissues: No suspicious soft tissue calcifications. Atherosclerotic vascular calcifications. IMPRESSION: No acute bony abnormality. Findings are concordant with preliminary interpretation provided by [facility]. Dictated by: Krzysztof Bassett M.D. on 04/14/2024 at 8:09 Approved by: Krzysztof Bassett M.D. on 04/14/2024 at 8:10
--- NOTE | 2024-04-14 07:08 | ED.UPPEXIN ---
HPI - Extremity Injury (Upper) General Chief Complaint: Extremity Injury, Upper Stated Complaint: rt wrist pain was seen yesterday by kika Time Seen by Provider: 04/14/24 06:01 Source: patient Mode of arrival: Ambulatory History of Present Illness HPI narrative: 68-year-old male about 1 month after laparoscopic cholecystectomy, was working in his workshop at home, with an overhead box fell onto his right hand, hyper extending his right hand/wrist, initially not having much wrist pain, then significant pain and swelling overnight. He had some postoperative cholecystectomy Percocet that did not seem to be helping the pain. He does not take ibuprofen due to chronic warfarin anticoagulation. There was a glancing blow to his forehead, wearing a baseball cap, no skin abrasion, no loss of consciousness, no nausea or vomiting, no focal weakness. Superficial glancing blow by the falling box right lower chest, not really having right-sided chest pain. No other injuries recalled. No complaints of pain to his neck, upper back, lower back, shoulders, left upper extremity, proximal aspect right upper extremity, chest, abdomen, pelvis, lower extremities. Related Data Home Medications Medication Instructions Recorded Confirmed multivitamin 1 cap PO DAILY ##0 06/05/10 04/13/24 omega 5-ziv-mlo-fish oil 1,000 mg 1 cap PO DAILY ##0 08/04/12 04/13/24 (120 mg-180 mg) capsule (Fish Oil) atenolol 50 mg tablet 50 mg PO QPM 11/10/23 04/13/24 coenzyme Q10 10 mg capsule 10 mg PO DAILY 02/15/24 04/13/24 hydrochlorothiazide 50 mg tablet 50 mg PO DAILY 02/15/24 04/13/24 simvastatin 20 mg tablet 20 mg PO BEDTIME 02/15/24 04/13/24 Previous Rx's Medication Instructions Recorded warfarin 2.5 mg tablet 2.5 mg PO .COMPLEX #14 tabs 10/21/23 blood-glucose meter (Blood Glucose #1 ea 02/23/24 Monitoring kit) oxycodone-acetaminophen 10 mg-325 1 tab PO Q6H PRN pain #14 tabs 04/14/24 mg tablet Allergies Allergy/AdvReac Type Severity Reaction Status Date / Time amoxicillin AdvReac Severe Septic Verified 04/13/24 15:24 Encephalitis tramadol [TRAMADOL] AdvReac Severe Septic Verified 04/13/24 15:24 encephalitis hydrocodone AdvReac Intermediate Abdominal Verified 04/13/24 15:24 Pain Review of Systems Review of Systems Narrative: Pertinent positives and negatives per HPI Patient History Medical History Compression fracture of C1 vertebra Thoracic compression fracture Lumbar spondylosis Compression fracture of T6 vertebra Thoracic back pain Low back pain Hypokalemia GERD (gastroesophageal reflux disease) Mitral valve regurgitation KADE (obstructive sleep apnea) Functional mitral regurgitation Knee pain Shoulder pain Vertigo (~1989) Diverticular disease Hypertension Atrial fibrillation Surgical History Anesthesia History of colostomy History of sigmoidoscopy History of laparoscopy History of knee surgery History of hernia surgery Shoulder pain, left History of neck surgery Family History Father Congestive heart failure Hypertension Heart disease Mother Congestive heart failure Diabetes mellitus Hypertension Heart disease Stroke Brother Hyperlipidemia Sister Hyperlipidemia Hypertension Grandfather Stroke Grandmother Heart disease Grandmother Stroke Social History household members: spouse Smoking Status: Never smoker alcohol intake: former substance use type: does not use Smoking Status: Never smoker alcohol intake frequency: holidays/special occasions only Substance Use Type: does not use Exam Narrative Exam Narrative: GENERAL: Well-developed patient, in mild distress. HEAD: Atraumatic. Normocephalic. EYES: Pupils equal round and reactive. Extraocular motions intact. No scleral icterus. No injection or drainage. ENT: Nose without bleeding, purulent drainage. Throat without erythema, tonsillar hypertrophy or exudate. Airway patent. NECK: Trachea midline. Non tender CARDIOVASCULAR: Regular rate and rhythm without murmurs, gallops, or rubs. RESPIRATORY: Clear to auscultation. Breath sounds equal bilaterally. No wheezes, rales, or rhonchi. No chest wall tenderness. GASTROINTESTINAL: Abdomen soft, non-tender, nondistended. Well-healed laparoscopic scars from his cholecystectomy laparoscopic surgery last month. EXTREMITIES: Slight swelling right wrist, no gross deformity, tenderness right anatomical snuffbox, but also along the dorsal carpal surface and proximal metacarpals, no skin erythema or puncture or abrasion. No edema or joint tenderness. BACK: Nontender without deformity or crepitance. No flank tenderness. NEURO: AOx3. SKIN: No rash or erythema of visible areas Initial Vital Signs Initial Vital Signs: Vital Signs Temperature 98.4 F 04/14/24 05:56 Pulse Rate 97 H 04/14/24 05:56 Respiratory Rate 20 04/14/24 05:56 Blood Pressure 139/69 04/14/24 05:56 Pulse Oximetry 98 04/14/24 05:56 Oxygen Delivery Method Room Air 04/14/24 05:56 Course Orders Ordered: Discontinued Medications Hydromorphone HCl (Hydromorphone 1 Mg Inj) 1 mg IM NOW ONE Stop: 04/14/24 07:21 Last Admin: 04/14/24 07:39 Dose: 1 mg Documented By: VICTOR MANUEL Vital Signs Vital signs: Vital Signs - 8 hr 04/14/24 05:56 Temperature 98.4 F Pulse Rate 97 H Respiratory Rate 20 Blood Pressure 139/69 Pulse Oximetry 98 Oxygen Delivery Method Room Air MDM - Extremity Injury (Upper) Differential Diagnosis Differential diagnosis: Likely sprain and strain of wrist, fracture of wrist, fracture of hand and other MDM Narrative Medical decision making narrative: 68-year-old male with extension injury, wrist pain, tenderness anatomic snuff box concern for scaphoid fracture, also tenderness along dorsal wrist, consider carpal bone fractures, consider distal radius/ulna fracture, consider strain, consider ligamentous injury wrist Right wrist x-ray series with scaphoid view. Impressions: ?Soft tissue swelling without current evidence of fracture. First [facility]D. ? See radiology report In considerable pain despite recent Motrin doses. IM Dilaudid for splinting, placed in can-holding position wrist splint in case of scaphoid injury. Follow up with Orthopedic surgery. He has seen orthopedist Dr. Saunders in the past, her office contact information provided on discharge advised to follow up with her in the next few days. Return precautions discussed. Improved, home with Discharge Plan Departure Patient Disposition: Home Clinical Impression: Strain of right wrist Activity Restrictions/Additional Instructions: Right wrist injury last night in workshop, box falling from above, causing right wrist hyper extension, initially no pain, then increasing pain and swelling overnight, some tenderness on dorsum right wrist, also some tenderness right anatomical snuffbox in the area of the scaphoid bone. X-ray series of the right wrist included the scaphoid bone, no fracture identified so far by Radiology. Wrist splinted, in a position to immobilize, in case of scaphoid injury. Follow up with your orthopedic surgeon Dr. Saunders in the next few days early next week. Take your postoperative cholecystectomy Percocet as needed for pain control. Consider keeping arm elevated above the level of the chest when sleeping. Follow up with Orthopedics as above, also given contact information for Dr. Montano orthopedic surgery on-call, if you can not be seen by Dr. Saunders in a timely fashion. Return to this/nearest emergency department for any change worsening symptoms or any concerns prior Prescriptions: New oxycodone-acetaminophen 10-325 mg tablet 1 tab PO Q6H PRN (Reason: pain) Qty: 14 0RF No Action multivitamin Capsule 1 cap PO DAILY Qty: 0 omega 0-nnz-ovc-fish oil [Fish Oil] 1,000 mg (120 mg-180 mg) Capsule 1 cap PO DAILY Qty: 0 warfarin 2.5 mg tablet 2.5 mg PO .COMPLEX Qty: 14 0RF Rx Instructions: Take 5mg Mon and Fri and 2.5mg all other days, or as directed. atenolol 50 mg tablet 50 mg PO QPM (DME) blood-glucose meter [Blood Glucose Monitoring] Kit See Rx Instructions .Route Qty: 1 0RF Rx Instructions: As directed coenzyme Q10 10 mg Capsule 10 mg PO DAILY simvastatin 20 mg tablet 20 mg PO BEDTIME hydrochlorothiazide 50 mg tablet 50 mg PO DAILY Referrals: Srinivas Hernandez MD [Physician] - [place]rien DO [Primary Care Provider] - Julieta Saunders MD [Physician] - Stand Alone Forms: Patient Portal/API
[2024-04-14] MEDS: HYDROMORPHONE 1 MG INJ IM (07:39)
--- NOTE | 2024-04-14 08:08 | PC.NURSE ---
right hand pain; redness in middle anterior portion of hand; worse with movement.
[2024-04-14 08:18] VITALS: BP 117/75; PULSE 78; RESP 16; TEMP 36.9; O2SAT 96
== END 2024-04-14 08:19 | disposition home or self-care (01) ==
PROVIDERS: Emergency Provider Emergency Medicine; PCP Family Medicine
DX: S66.911A Strain of unspecified muscle, fascia and tendon at wrist and hand level, right hand, initial encounter (principal); W20.8XXA Other cause of strike by thrown, projected or falling object, initial encounter; Y92.69 Other specified industrial and construction area as the place of occurrence of the external cause
CPT/HCPCS: 29125; 73110; 96372; 99283; J1170

== ENCOUNTER → 2024-04-15 10:58 | Outpatient (CLI) | payer MEDICARE, OTHER, SELFPAY ==
[2024-02-12 08:35] VITALS: BMI 27.6
--- NOTE | 2024-05-03 11:58 | DIAB.MNTFU ---
Follow-up Diabetes Medical Nutrition Therapy Assessment Name: Kenrick Smalls (Cory) Date:04/15/24 Time: 11a-12p Dx: Type II Diabetes Provider: Dylan Cory presents with Natali, his spouse for DM follow-up visit. Had intentions of attending classes, however was unable to make class one and with recent hgA1c of 5.2%, down from 7.3%, he feels he may not needs further education. Interested in smoothies and has questions about what he can add to them. Needing a few more meal/snack ideas, particularly for breakfast which seems to be close to 75g CHO in a sitting-- oats, sugar, toast. Open to increasing seafood intake to 2x per week. Also, needing some other lean protein ideas. Anthropometrics: Ht: 6'2 Wt: 209# 02/2024 Physical Activity: Limited due to knee pain. Walking around the yard. Overall min PA Self-Monitoring Blood Glucose: No log book today. FBG running 80-130mg/dl. Reports taking a few 2 hour pc readings, most under 180mg/dl however one reading of 212mg/dl. Diabetes Medications: 500mg BID Metformin Pertinent Labs: HGA1c: 6.6% 10/2023 7.3% 02/2024 5.2% 04/2024 Past Medical History: (Last Reviewed 03/09/24 @ 09:18 by Jcarlos Lazar RN) Atrial fibrillation Compression fracture of C1 vertebra Compression fracture of T6 vertebra Diverticular disease Functional mitral regurgitation w/tricuspid regurgitation GERD (gastroesophageal reflux disease) Hypertension Hypokalemia Knee pain Left knee disability Low back pain Lumbar spondylosis Mitral valve regurgitation Moderate in the setting of severe left atrial enlargement by ECHO 12/16/17 KADE (obstructive sleep apnea) Intolerant of CPAP Shoulder pain Thoracic back pain Thoracic compression fracture Vertigo (~1989) Nutrition Rx: Carbohydrates: Meal:45g Snack:15-30g Nutrition Diagnosis: - Food and nutrition related knowledge deficit r/t new dx T2DM aeb elevated hgA1c, BG results and diet recall- improved Intervention: This participant was very receptive. Provided appropriate educational handouts. Discussed the following topics: Discussed meal/snack ideas Provided recipe resources Reviewed heart healthy nutrition recs Discussed diabetes risk reduction recs; feet, eyes, dental, heart and kidney health Provided some smoothie recipe ideas with pro/CHO balance Created SMART goals for patient self-care and success. Goals: Add protein to breakfast and reduce CHO portion- met Check BG FBG and 1-2 hour pc- met Check out recipe website- [employer] and can supply supervisor lean string cheese- new Follow-up: DAVE RING follow-up prn. Cory would like to follow-up prn. Agreed to call or message with any questions or follow-up needs. Rosario Lozano RDN, [facility] Certified Diabetes Care and Museum Librarian P: [phone] Thank you for this referral
== END ==
LOC: DIET 10:59
PROVIDERS: PCP Family Medicine; Referring Provider Family Medicine
DX: E11.9 Type 2 diabetes mellitus without complications (principal); Z79.84 Long term (current) use of oral hypoglycemic drugs; Z71.3 Dietary counseling and surveillance
CPT/HCPCS: 97803

== ENCOUNTER → 2024-05-02 12:36 | Outpatient (CLI) | payer MEDICARE, OTHER, SELFPAY ==
[2024-02-12 08:35] VITALS: BMI 27.6
[2024-05-02 13:54] LABS: Uric Acid 6.3 mg/dL (3.5-8.5)
== END ==
PROVIDERS: PCP Family Medicine; Referring Provider Physician Assistant Surgical; Visit Provider Physician Assistant Surgical
DX: M25.531 Pain in right wrist (principal)
CPT/HCPCS: 36415; 84550

== ENCOUNTER → 2024-06-09 12:03 | Outpatient (CLI) | payer MEDICARE, OTHER, SELFPAY ==
[2024-02-12 08:35] VITALS: BMI 27.6
[2024-06-09 13:10] LABS: BUN Creatinine Ratio 20.5 (6-22); Blood Urea Nitrogen 18 mg/dL (9-20); Calcium 9.5 mg/dL (8.4-10.2); Carbon Dioxide 23 mmol/L (22-32); Chloride 104 mmol/L (98-107); Estimated Glomerular Filt Rate > 60 mL/min (>60); Glucose 131 mg/dL (80-110); HEMOLYSIS < 15 (0-50); Potassium 3.5 mmol/L (3.4-5.1); Sodium 138 mmol/L (137-145)
== END ==
PROVIDERS: PCP Family Medicine
DX: Z51.81 Encounter for therapeutic drug level monitoring (principal); I48.21 Permanent atrial fibrillation; I10 Essential (primary) hypertension
CPT/HCPCS: 36415; 80048

== ENCOUNTER → 2024-07-16 13:37 | Outpatient (CLI) | payer MEDICARE, OTHER, SELFPAY ==
[2024-02-12 08:35] VITALS: BMI 27.6
--- NOTE | 2024-07-16 13:40 | DI.MRI.S_ITS ---
PROCEDURE: MR WRIST RT WO CON INDICATIONS: Fracture of unspecified carpal bone, right wrist, TECHNIQUE: Noncontrast coronal proton density fast spin echo and T2 fast spin echo with fat saturation; coronal 3-D gradient echo, axial T1 spin echo and T2 fast spin echo with fat saturation, sagittal T1 spin echo through the wrist. COMPARISON: None. FINDINGS: Image quality: Excellent. Bones and cartilage: Moderate degenerative changes of the 1st carpometacarpal joint, with moderate effusion. Moderate degenerative changes of the triscaphe joint with moderate effusion, and multifocal moderate subchondral marrow edema edema. Additional subchondral T2 hyperintensity within the distal capitate, nonspecific and may be degenerative. No acute fracture. Moderate effusion within the intercarpal joints. Carpal ligaments: The scapholunate and lunotriquetral ligaments appear intact. In the absence of intra-articular contrast, the extrinsic carpal ligaments are not well identified. On sagittal images, the pisohamate ligament appears intact. Triangular fibrocartilage complex: Central disc perforation (series 4, image 8). The ulnar styloid and the foveal attachments are unremarkable. Tendons and soft tissues: The carpal tunnel structures appear normal, including the median nerve. The ulnar nerve appears normal within Guyon's canal. There is ulnar subluxation of the extensor carpi ulnaris within the ulnar groove, with low grade interstitial tear. No ganglion cyst. IMPRESSION: 1. No acute fracture in the right wrist. 2. Moderate degenerative change of the 1st carpal metacarpal and the triscaphe joint. 3. 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 4. Low-grade tear with ulnar subluxation of the extensor carpi ulnaris within the ulnar groove. Dictated by: Shreya Jha M.D. on 07/18/2024 at 14:00 Approved by: Shreya Jha M.D. on 07/18/2024 at 14:06
== END ==
LOC: MRI 13:38
PROVIDERS: PCP Family Medicine; Referring Provider Orthopaedic Surgery; Visit Provider Orthopaedic Surgery
DX: S62.101D Fracture of unspecified carpal bone, right wrist, subsequent encounter for fracture with routine healing (principal); S63.591A Other specified sprain of right wrist, initial encounter; S56.511A Strain of other extensor muscle, fascia and tendon at forearm level, right arm, initial encounter; M25.431 Effusion, right wrist
CPT/HCPCS: 73221

== ENCOUNTER → 2024-09-30 08:48 | Outpatient (CLI) | payer MEDICARE, OTHER, SELFPAY ==
[2024-02-12 08:35] VITALS: BMI 27.6
[2024-09-30 09:42] LABS: Add Manual Diff / Slide Review NO; Basophils Absolute Auto 0 /uL (0-100); Basophils Percent Auto 0.4 % (0-2); Eosinophils Absolute Auto 100 /uL (0-450); Eosinophils Percent Auto 0.6 % (2-4); Hematocrit 49.2 % (41-53); Hemoglobin 16.4 g/dL (13.5-17.5); Lymphocytes Absolute Auto 2700 /uL (1100-4500); Lymphocytes Percent Auto 33.1 % (25-40); Mean Corpuscular HGB Conc 33.4 % (30-36); Mean Corpuscular Hemoglobin 33.6 PG (26-34); Mean Corpuscular Volume 100.7 fL (80-100); Monocytes Absolute Auto 900 /uL (0-900); Neutrophils Absolute Auto 4500 /uL (1500-7000); Neutrophils Percent Auto 54.9 % (50-75); Platelet Count 183 X10^3/uL (150-400); Red Blood Cell Count 4.88 X10^6/uL (4.5-5.9); Red Cell Distribution Width 14.2 % (11.6-14.8); White Blood Cell Count 8.2 X10^3/uL (4.5-11.0)
[2024-09-30 09:46] LABS: Hemoglobin A1C% w Est Avg Glu 6.1 % (4.0-6.0)
[2024-09-30 10:03] LABS: Alanine Aminotransferase 36 IU/L (<50); Albumin 4.4 g/dL (3.5-5.0); Albumin Globulin Ratio 1.8 (1.0-2.8); Alkaline Phosphatase 50 U/L (38-126); Aspartate Aminotransferase 34 IU/L (17-59); BUN Creatinine Ratio 21.9 (6-22); Bilirubin Total 2.4 mg/dL (0.2-1.3); Blood Urea Nitrogen 21 mg/dL (9-20); Calcium 9.8 mg/dL (8.4-10.2); Carbon Dioxide 28 mmol/L (22-32); Chloride 103 mmol/L (98-107); Cholesterol 130 mg/dL (140-199); Estimated Glomerular Filt Rate > 60 mL/min (>60); Globulin 2.5 g/dL (1.7-4.1); Glucose 130 mg/dL (80-110); HDL Cholesterol 43 mg/dL (40-60); HEMOLYSIS < 15 (0-50); LDL Cholesterol Calculated 63 mg/dL (<100); Potassium 4.1 mmol/L (3.4-5.1); Sodium 138 mmol/L (137-145); Total Protein 6.9 g/dL (6.3-8.2); Triglycerides 122 mg/dL (35-150)
[2024-09-30 10:32] LABS: Prostate Specific Antigen Scrn 6.25 ng/mL (0.1-4.0)
== END ==
PROVIDERS: PCP Family Medicine; Referring Provider Family Medicine; Visit Provider Family Medicine
DX: E11.9 Type 2 diabetes mellitus without complications (principal); Z12.5 Encounter for screening for malignant neoplasm of prostate; E78.2 Mixed hyperlipidemia; I10 Essential (primary) hypertension; R97.20 Elevated prostate specific antigen [PSA]
CPT/HCPCS: 36415; 80053; 80061; 83036; 85025; G0103

== ENCOUNTER → 2025-09-20 10:26 | Outpatient (CLI) | payer MEDICARE, OTHER, SELFPAY ==
[2024-02-12 08:35] VITALS: BMI 27.6
[2025-09-20 10:53] LABS: Add Manual Diff / Slide Review NO; Hematocrit 47.2 % (41-53); Hemoglobin 16.3 g/dL (13.5-17.5); Lymphocytes Absolute Auto 2000 /uL (1100-4500); Mean Corpuscular HGB Conc 34.6 % (30-36); Mean Corpuscular Hemoglobin 34.0 PG (26-34); Mean Corpuscular Volume 98.2 fL (80-100); Platelet Count 187 X10^3/uL (150-400)
[2025-09-20 11:03] LABS: Hemoglobin A1C% w Est Avg Glu 6.4 % (4.0-6.0)
[2025-09-20 11:07] LABS: Cholesterol 135 mg/dL (140-199); HDL Cholesterol 44 mg/dL (40-60); Triglycerides 165 mg/dL (35-150)
[2025-09-20 11:38] LABS: Prostate Specific Antigen 8.16 ng/mL (0.10-4.00); TSH w/ Reflex to FT4 0.63 uIU/mL (0.47-4.68)
== END ==
PROVIDERS: PCP Family Medicine; Referring Provider Family Medicine; Visit Provider Family Medicine
DX: E78.2 Mixed hyperlipidemia (principal); E11.9 Type 2 diabetes mellitus without complications; R97.20 Elevated prostate specific antigen [PSA]; E87.6 Hypokalemia; E80.4 Gilbert syndrome; I10 Essential (primary) hypertension; R79.89 Other specified abnormal findings of blood chemistry; Z79.01 Long term (current) use of anticoagulants
CPT/HCPCS: 36415; 80061; 83036; 84153; 84402; 84403; 84443; 85025